=== PATIENT | female | born 1970 | race Caucasian/White ===

== ENCOUNTER 2020-05-02 12:13 | Outpatient (REF) | payer BC, SELFPAY ==
[2020-05-02 12:35] LABS: MANUAL DIFF FLAG NO
[2020-05-02 12:38] LABS: Basophils Percent Auto 0.5 % (0-2); Eosinophils Percent Auto 0.7 % (0-4); Hematocrit 41.5 % (37-47); Hemoglobin 13.6 g/dl (12.0-16.0); Imm Gran Abs Auto 0.01 X10*3/uL (0.00-0.03); Imm Gran Pct Auto 0.2 % (0.0-0.4); Lymphocytes Absolute Auto 1.7 X10*3/uL (1.2-4.9); Mean Corpuscular HGB Conc 32.8 g/dl (31.0-35.0); Mean Corpuscular Hemoglobin 29.6 pg (27.0-33.0); Mean Corpuscular Volume 90.2 fL (80-98); Monocytes Absolute Auto 0.4 X10*3/uL (0.1-1.2); Monocytes Percent Auto 6.6 % (2-11); Neutrophils Absolute Auto 3.8 X10*3/uL (2.0-8.3); Platelet Count 210 X10*3/uL (160-400); Red Cell Distribution Width 12.1 % (11.0-16.0); White Blood Count 5.9 X10*3/uL (4.8-10.8)
[2020-05-02 13:08] LABS: Anion Gap 10 (12-20); Blood Urea Nitrogen 12 mg/dL (9-16); Calcium 9.4 mg/dL (8.4-10.2); Carbon Dioxide 32 mmol/L (22-29); Chloride 105 mmol/L (96-108); Estimated Glomerular Filt Rate > 60; Glucose Random 89 mg/dL (60-115); Potassium 4.9 mmol/l (3.3-5.1); Sodium 142 mmol/L (135-145)
[2020-05-02 13:30] LABS: Thyroid Stimulating Hormone 1.02 uIU/mL (0.32-4.0)
== END 2020-05-02 12:14 | disposition home or self-care (01) ==
LOC: HO.LAB 12:13
PROVIDERS: Visit Provider Internal Medicine
DX: E03.9 Hypothyroidism, unspecified (principal); R51.9 Headache, unspecified; Z00.00 Encounter for general adult medical examination without abnormal findings
CPT/HCPCS: 36415; 80048; 84443; 85025

== ENCOUNTER 2020-06-04 06:26 | Outpatient (REF) | payer BC, SELFPAY ==
[2020-06-04 07:06] LABS: MANUAL DIFF FLAG NO
[2020-06-04 07:10] LABS: Basophils Percent Auto 0.5 % (0-2); Eosinophils Absolute Auto 0.1 X10*3/uL (0.0-0.4); Eosinophils Percent Auto 0.9 % (0-4); Hematocrit 42.5 % (37-47); Hemoglobin 13.9 g/dl (12.0-16.0); Imm Gran Abs Auto 0.02 X10*3/uL (0.00-0.03); Imm Gran Pct Auto 0.3 % (0.0-0.4); Lymphocytes Absolute Auto 1.5 X10*3/uL (1.2-4.9); Lymphocytes Percent Auto 20.5 % (20-40); Mean Corpuscular HGB Conc 32.7 g/dl (31.0-35.0); Mean Corpuscular Hemoglobin 30.2 pg (27.0-33.0); Mean Corpuscular Volume 92.2 fL (80-98); Mean Platelet Volume 8.8 fL (9.4-12.3); Monocytes Absolute Auto 0.5 X10*3/uL (0.1-1.2); Monocytes Percent Auto 6.5 % (2-11); Neutrophils Absolute Auto 5.3 X10*3/uL (2.0-8.3); Neutrophils Percent Auto 71.3 % (45-73); Platelet Count 254 X10*3/uL (160-400); Red Blood Count 4.61 X10*6/uL (4.20-5.50); Red Cell Distribution Width 12.6 % (11.0-16.0); White Blood Count 7.4 X10*3/uL (4.8-10.8)
[2020-06-04 07:27] LABS: Alanine Aminotransferase 14 U/L (0-31); Albumin Level 4.3 g/dL (3.5-5.0); Alkaline Phosphatase 58 U/L (39-117); Anion Gap 10 (12-20); Aspartate Amino Transferase 16 U/L (5-31); Bilirubin Total 0.5 mg/dL (0.0-1.0); Blood Urea Nitrogen 13 mg/dL (9-16); Calcium 9.1 mg/dL (8.4-10.2); Carbon Dioxide 32 mmol/L (22-29); Chloride 105 mmol/L (96-108); Cholesterol 206 mg/dL; Estimated Glomerular Filt Rate > 60; Glucose Fasting 84 mg/dL (60-99); HDL Cholesterol 67 mg/dL; LDL Cholesterol Calculated 121 mg/dl; Potassium 4.3 mmol/l (3.3-5.1); Sodium 143 mmol/L (135-145); Total Protein 7.1 g/dL (6.5-8.0); Triglycerides 93 mg/dL
[2020-06-04 07:49] LABS: Thyroid Stimulating Hormone 1.07 uIU/mL (0.32-4.0)
== END 2020-06-04 06:27 | disposition home or self-care (01) ==
LOC: HO.LAB 06:26
PROVIDERS: PCP Internal Medicine; Visit Provider Internal Medicine
DX: Z00.00 Encounter for general adult medical examination without abnormal findings (principal); E11.9 Type 2 diabetes mellitus without complications; E03.9 Hypothyroidism, unspecified
CPT/HCPCS: 36415; 80053; 80061; 84443; 85025

== ENCOUNTER 2020-06-20 16:00 | Outpatient (REF) | payer BC, SELFPAY ==
[2020-06-20 17:08] LABS: Thyroid Stimulating Hormone 1.57 uIU/mL (0.32-4.0)
[2020-06-20 18:00] LABS: Erythrocyte Sedimentation Rate 2 MM/HR (0-20)
[2020-06-21 04:07] LABS: Triiodothyronine T3 Free 2.8 pg/mL (2.3-4.2)
== END 2020-06-20 16:01 | disposition home or self-care (01) ==
LOC: HO.LAB 16:00
PROVIDERS: PCP Internal Medicine; Visit Provider Internal Medicine
DX: E03.9 Hypothyroidism, unspecified (principal); R63.4 Abnormal weight loss; R10.9 Unspecified abdominal pain
CPT/HCPCS: 36415; 84439; 84443; 84481; 85652

== ENCOUNTER 2020-07-09 14:42 | Outpatient (REF) | payer BC, SELFPAY ==
--- NOTE | ~2020-07-09 | US_ITS ---
EXAMINATION: ULTRASOUND PELVIS COMPLETE CLINICAL INFORMATION: Pelvic and perineal pain. COMPARISON: Ultrasound pelvis 07/02/2018. TECHNIQUE: Transabdominal and transvaginal ultrasound of the pelvis is performed. FINDINGS: The uterus is anteverted measuring 10.7 cm in length, 3.9 cm in AP and 6.1 cm in transverse dimension. Endometrial thickness is 1.2 cm. The uterus is heterogeneous with trace free fluid in the cervical canal. There is a small echogenic polyp measuring 1.2 x 0.7 x 1.2 cm in the fundal endometrial canal with a few vessels visualized. The right ovary measures 3.1 x 1.1 x 2.4 cm and volume 4.3 mL. Small anechoic follicles seen. There is a hyperechoic avascular area measuring 0.4 x 0.7 x 0.3 cm. The left ovary measures 2.0 x 1.6 x 1.8 cm and volume 3.0 mL. There are small anechoic follicles. Previously left ovary measured 1.5 x 1.7 x 2.0 cm and volume 2.7 mL. There is no free fluid in the cul-de-sac. Increased vascularity seen in bilateral adnexa suspicious for pelvic venous congestion. US/US pelvic complete IMPRESSION: Small fundal endometrial polyp with vessels. Heterogenous uterus. Small amount of free fluid in the cervical canal. Bilateral ovarian follicles seen. Small hyperechoic avascular area seen in the right ovary. Bilateral pelvic venous congestion.
--- NOTE | ~2020-07-09 | US_ITS ---
EXAMINATION: ULTRASOUND PELVIS COMPLETE CLINICAL INFORMATION: Pelvic and perineal pain. COMPARISON: Ultrasound pelvis 07/02/2018. TECHNIQUE: Transabdominal and transvaginal ultrasound of the pelvis is performed. FINDINGS: The uterus is anteverted measuring 10.7 cm in length, 3.9 cm in AP and 6.1 cm in transverse dimension. Endometrial thickness is 1.2 cm. The uterus is heterogeneous with trace free fluid in the cervical canal. There is a small echogenic polyp measuring 1.2 x 0.7 x 1.2 cm in the fundal endometrial canal with a few vessels visualized. The right ovary measures 3.1 x 1.1 x 2.4 cm and volume 4.3 mL. Small anechoic follicles seen. There is a hyperechoic avascular area measuring 0.4 x 0.7 x 0.3 cm. The left ovary measures 2.0 x 1.6 x 1.8 cm and volume 3.0 mL. There are small anechoic follicles. Previously left ovary measured 1.5 x 1.7 x 2.0 cm and volume 2.7 mL. There is no free fluid in the cul-de-sac. Increased vascularity seen in bilateral adnexa suspicious for pelvic venous congestion. US/US transvaginal IMPRESSION: Small fundal endometrial polyp with vessels. Heterogenous uterus. Small amount of free fluid in the cervical canal. Bilateral ovarian follicles seen. Small hyperechoic avascular area seen in the right ovary. Bilateral pelvic venous congestion.
== END 2020-07-09 14:43 | disposition home or self-care (01) ==
LOC: HO.US 14:42
PROVIDERS: PCP Internal Medicine; Visit Provider Internal Medicine
DX: R10.2 Pelvic and perineal pain (principal)
CPT/HCPCS: 76830; 76856

== ENCOUNTER 2020-07-12 16:21 | Outpatient (REF) | payer BC, SELFPAY ==
--- NOTE | ~2020-07-12 | US_ITS ---
EXAMINATION: US ABDOMEN COMPLETE CLINICAL INFORMATION: Unspecified abdominal pain. COMPARISON: CT abdomen and pelvis with contrast dated 06/22/2018. TECHNIQUE: Real-time imaging of the abdominal viscera. FINDINGS: PANCREAS: Normal. ABDOMINAL AORTA: The proximal, mid, and distal segments are normal in caliber. INFERIOR VENA CAVA: Visualized portions are normal. LIVER: Normal. The liver is normal in size. The liver contour is normal. Parenchymal echogenicity is normal. No focal hepatic lesion. There is no intrahepatic biliary duct dilatation seen. GALLBLADDER: Normal. The gallbladder is physiologically distended without evidence of stones, sludge, polyps, or pericholecystic fluid. COMMON BILE DUCT: Normal in caliber measuring 0.23 cm in diameter. RIGHT KIDNEY: There is a small 7 x 5 x 5 mm hyperechoic lesion in the upper pole of the right kidney. This is similar to previous CT scan June 2018 and suggestive of a benign angiomyolipoma. No hydronephrosis. No renal calculi . The kidney measures 10.8 cm in maximum dimension. LEFT KIDNEY: Normal. No hydronephrosis. No renal calculi or focal parenchymal lesions. The kidney measures 9.9 cm in maximum dimension. SPLEEN: Normal. The spleen measures 7.9 cm in maximum dimension. FREE FLUID: None. 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 This is unchanged from previous CT scan June 2018. Otherwise unremarkable exam.
== END 2020-07-12 16:22 | disposition home or self-care (01) ==
LOC: HO.US 16:21
PROVIDERS: PCP Internal Medicine; Visit Provider Internal Medicine
DX: R10.9 Unspecified abdominal pain (principal)
CPT/HCPCS: 76700

== ENCOUNTER 2021-02-06 15:23 | Outpatient (REF) | payer BC, SELFPAY ==
[2021-02-06 17:04] LABS: C Reactive Protein 0.08 mg/dL (< or = 0.50)
[2021-02-12 11:36] LABS: Transglutaminase Ab IgG <1.0 U/mL; Transglutaminase IgA <1.0 U/mL
== END 2021-02-06 15:24 | disposition home or self-care (01) ==
LOC: HO.LAB 15:23
PROVIDERS: PCP Internal Medicine; Referring Provider Internal Medicine; Visit Provider Nurse Practitioner Family
DX: R13.10 Dysphagia, unspecified (principal); K59.01 Slow transit constipation; K58.1 Irritable bowel syndrome with constipation
CPT/HCPCS: 36415; 83516; 86140

== ENCOUNTER 2021-03-18 08:25 | Outpatient (REF) | payer BC, SELFPAY ==
--- NOTE | ~2021-03-18 | FL_ITS ---
EXAMINATION: FL BARIUM SWALLOW CLINICAL INFORMATION: Dysphagia. COMPARISON: None TECHNIQUE: Barium swallow examination is performed using fluoroscopic evaluation in addition to multiple fluoroscopic spot views. The patient is imaged both upright and prone and using both thick and thin sulfate along with effervescent granules. Barium tablet was also administered. Fluoroscopy time: 1 minutes DAP: 1.3 Gycm2 Images: 41 FINDINGS: There is mild penetration seen in the larynx with the patient swallows. No aspiration is seen. Swallowing mechanism otherwise appears normal. Esophageal motility is normal. There is severe gastroesophageal reflux. No muscle irregularity, mass, stricture or hernia is seen. The barium tablet passed freely into the stomach. On later series 3 images there is a nodular density projecting over the left upper lobe. This overlies the left first rib costochondral cartilage and scapula and may be related to overlapping bony structures. Follow-up chest x-ray recommended. FL/FL barium swallow IMPRESSION: Severe gastroesophageal reflux. Mild penetration into the larynx with the patient swallows. No aspiration seen. Nodular density projecting over the left upper lobe. This may represent overlapping left first rib costochondral cartilage and scapula. Follow-up chest x-ray recommended.
== END 2021-03-18 08:26 | disposition home or self-care (01) ==
LOC: HO.XRAY 08:25
PROVIDERS: Visit Provider Nurse Practitioner Family
DX: R13.10 Dysphagia, unspecified (principal)
CPT/HCPCS: 74220

== ENCOUNTER 2021-03-23 10:16 | Outpatient (REF) | payer BC, SELFPAY | END 2021-03-23 10:17 | disposition home or self-care (01) | LOC: HO.LNP 10:16 | PROVIDERS: Visit Provider Nurse Practitioner Family | DX: K21.9 Gastro-esophageal reflux disease without esophagitis (principal) | CPT/HCPCS: 87338 ==

== ENCOUNTER 2021-03-25 14:56 | Outpatient (REF) | payer BC, SELFPAY ==
--- NOTE | ~2021-03-25 | XR_ITS ---
EXAMINATION: XR RIBS, LEFT CLINICAL INFORMATION: Patient states left pulmonary nodule. COMPARISON: Chest radiograph dated from 10/28/2016. TECHNIQUE: 3 views of the left ribs were obtained. FINDINGS: Normal appearance of the cardiomediastinal silhouette. There is an asymmetric opacity in the left upper lobe measuring up to 1.2 cm. Otherwise, lungs are clear. No pleural effusion or pneumothorax. No acute osseous abnormalities. Indeterminate calcifications in the left upper abdomen. XR/XR ribs LT min 3V w CXR1V IMPRESSION: Asymmetric opacity in the left apex could represent shadowing from overlying costochondral cartilage. Although, he nodularity is difficult to exclude. Recommend correlation with a chest CT. Indeterminate calcifications in the left upper abdomen. Clear lungs. No acute osseous findings.
--- NOTE | ~2021-03-25 | FL_ITS ---
EXAMINATION: XR BARIUM SWALLOW CLINICAL INFORMATION: Dysphagia COMPARISON: None TECHNIQUE: Routine modified barium swallow was performed in presence of speech therapist. FINDINGS: Following oral administration of thin barium, pudding, ground chicken and barium coated cookie there is normal oral mastication and propagation of bolus from the oral cavity through the pharynx into the esophagus without any evidence of obstruction, narrowing or stricture. There is minimal retention of barium coated food in the valleculae which cleared with subsequent dry swallowing. FLUOROSCOPY TIME: 1.0 minute DOSE AREA PRODUCT: 0.650 uGy-m2 (microgray-meter squared) FL/FL barium swallow modified IMPRESSION: 1. Unremarkable modified barium swallow exam. 2. Correlate with speech therapy results.
--- NOTE | 2021-03-27 16:48 | MHC.SL.IMP ---
Date of Plan of Treatment: 03/25/21 Onset of Symptoms/Illness: 03/25/20 Date Treatment Started: 03/25/21 Admitting Diagnosis: Migraine Varicose veins C-sections von Willebrand's disease, type 1A Hematuria Constipation Primary Speech & Language Diagnosis: R13.12 Oropharyngeal Phase Dysphagia Reason for Today's Visit: 57724 Modified Barium Swallow Study Pre-evaluation Dietary Consistencies: Regular Pre-evaluation Liquid Consistency: Thin Pre-evaluation Medication Administration: Whole with Liquid Medical History: [place], [place] Modified Barium Swallow Study Fluoroscopic Evaluation of Swallowing Function CPT Code 28010 Evaluation Year: 2020 Reason for Study: Evidence of penetration with barium swallow study 03/18/21 Referring Physician: Porsha NASH Evaluating Clinician: Ginny Naranjo M.A., CCC-ASSISTANT CUSTOMER SERVICE MANAGER Study Number: 1 Patient Name: Gina Garcia Status: Outpatient, Ambulatory Age: 51 Gender: Female MEDICAL HISTORY: Year of Onset or Diagnosis: 2020 Comorbidities: Migraine Varicose veins C-sections von Willebrand's disease, type 1A Hematuria Constipation Current (pre-evaluation) Intake/Diet: Route: PO Diet Grade: Regular Liquid Consistencies: Thin Pre-Study Functional Oral Intake Scale (FOIS): 7- Total oral intake with no restrictions Pain: Currently present reported at time of study, Throat, rated 4 on scale 0-10 SUBJECTIVE: Patient is a 51 year old woman who attended this exam unaccompanied. Patient was seen by Porsha NASH from Gastroenterology on 01/31/21. At that time, patient reported trouble swallowing. She described food feeling ?stuck and will not go down,? and ?throat closing in.? Today, patient elaborated on these complaints. She reports globus sensation with all types of foods, and sometimes even liquids. She reports throat pain at the time of the exam, which she rated 3 or 4 on a scale 0 through 10. She reports her pain as intermittent. Patient reports onset of dysphagia approximately 1 year ago, and it has progressively worsened. Patient reportedly had a mass removed in her uterus and then a mass was found in her kidney. Patient had recent barium swallow study on 03/18/21, which showed, ?Severe gastroesophageal reflux. Mild penetration into the larynx [when] the patient swallows. No aspiration seen. Nodular density projecting over the left upper lobe. This may represent overlapping left first rib costochondral cartilage and scapula. Follow up chest x-ray recommended.? Oral Motor Exam Facial Symmetry: Symmetrical Mouth Occlusion: Normal Oral-Facial Teeth Characteristics: Intact/Normal Oral-Facial Lip Pucker Description: Normal Oral-Facial Smile (Lips) Description: Normal Oral-Facial Puff Cheeks Description: Normal Tongue Size: Normal Tongue Frenum Length: Normal Tongue Excursion Description: Normal Tongue Range of Movement Description: Normal Tongue Speed of Movement Description: Normal Tongue Strength of Movement (against opposing pressure): Normal Tongue Movement Characteristics: Normal/Absent Is patient able to manage secretions?: Yes Is patient able to produce volitional cough?: Yes Food and Liquid Trials: Oral Impairment: Lip Closure: 0=No labial escape Oral Impairment: Tongue Control During Bolus Hold: 0=Cohesive bolus between tongue to palatal seal Oral Impairment: Bolus Preparation/Mastication: 0=Timely and efficient chewing and mashing Oral Impairment: Bolus Transport/Lingual Motion: 2=Slowed tongue motion Oral Impairment: Oral Residue: 1=Trace residue lining oral structures Oral Impairment:Initiation of Pharyngeal Swallow: 3=Bolus head in pyriforms Pharyngeal Impairment: Soft Palate Elevation: 0=No bolus between soft palate (SP)/pharyngeal wall (PW) Pharyngeal Impairment: Laryngeal Elevation: 1=Partial thyroid cartilage/arytenoids to epiglottic petiole movement Pharyngeal Impairment: Anterior Hyoid Excursion: 0=Complete anterior movement Pharyngeal Impairment: Epiglottic Movement: 1=Partial inversion Pharyngeal Impairment: Laryngeal Vestibular Closure:: 1=Incomplete: narrow column air/contrast in laryngeal vestibule Pharyngeal Impairment: Pharyngeal Stripping Wave: 0=Present: complete Pharyngeal Impairment: Pharyngeal Contraction: Did not test Pharyngeal Impairment: Pharyngoesophageal Segment Openin=Complete distension and complete duration: no obstruction of flow Pharyngeal Impairment: Tongue Base (TB) Retraction: 2=Narrow column of contrast/air between TB and posterior PW Pharyngeal Impairment: Pharyngeal Residue: 1=Trace residue within or on pharyngeal structures Pharyngeal Impairment: Esophageal Clearance Upright Position: Did not test Impressions and Recommendations Clinical Observations: OBJECTIVE: Time-out: performed at 03:15 Evaluation Start: 03:00; Stop: 03:05 Patient Positioning: Seated 70-90 degrees Viewing Planes: LATERAL ONLY Contrast: MBSImP? Standardized Protocol using commercially prepared, standardized Barium viscosities, including: Varibar? THIN LIQUID (40% w/v, <15 cps) , Varibar? NECTAR (40% w/v, <150-450 cps) , Varibar? THIN HONEY (40% w/v, <800-1800 cps) , 1/2 Shortbread Cookie (1 x1 x.25 ) [facility] ID: [id number] [facility] Results: Lip closure for intraoral bolus containment resulted in no labial escape. Tongue control during bolus hold maintained a cohesive bolus held between tongue to palate seal. Bolus preparation and mastication resulted in timely and efficient chewing and mashing. Bolus transport/lingual motion was with slowed tongue motion. Oral residue was a trace, lining oral structures. Initiation of the pharyngeal swallow occurred when the bolus head was in the pyriform sinuses. Soft palate elevation resulted in no bolus between the soft palate and the pharyngeal wall. Laryngeal elevation was decreased, with partial superior movement of the thyroid cartilage/partial approximation of the arytenoids to the epiglottic petiole. Anterior hyoid excursion demonstrated complete anterior movement. Epiglottic movement resulted in partial inversion. Laryngeal vestibular closure was incomplete, with a narrow column of air/contrast noted within the laryngeal vestibule at the height of the swallow. Pharyngeal stripping wave was present and complete. Pharyngeal contraction could not be determined due to logistical reasons not related to physiologic impairment. Pharyngoesophageal segment opening was completely distended for complete duration with no obstruction of bolus flow. Tongue base retraction allowed a narrow column of contrast or air between the retracted tongue base and the posterior pharyngeal wall. Pharyngeal residue was a trace within or on pharyngeal structures. Esophageal clearance in the upright position could not be assessed due to logistical reasons not related to physiologic impairment. Oral Impairment Score: 5 Pharyngeal Impairment Score: 5 (absence of score, component 13) Esophageal Impairment Score: --- (absence of score, component 17) Laryngeal Penetration and Aspiration: Penetration was observed in today's study. [place]-thick, Thin Contrast entered the airway, remained above the vocal folds, and were ejected from the airway. ASSESSMENT: This exam was conducted by a multidisciplinary team, which included a speech-language pathologist, radiologist, and reactor technician. Patient was seated at optimal 90 degree position for lateral view only. Patient trialed the following liquid and solid consistencies: -5 mL thin liquid barium -cup sip with bolus hold thin liquid barium -consecutive cup sip thin liquid barium -nectar thick liquid barium -honey thick liquid barium -pureed solid (mixture applesauce with barium paste) -ground solid (mixture chicken salad with barium paste) -regular solid (Madonna Doone cookie coated with barium paste) Patient demonstrated mild oropharyngeal phase dysphagia, characterized by impairments in the following components of swallow physiology: Slowed posterior tongue movement; delayed pharyngeal swallow trigger when bolus head reached pyriform sinuses; incomplete laryngeal elevation with partial epiglottic inversion; incomplete laryngeal vestibular closure resulting in penetration of liquids. Intact labial closure with no interlabial escape. Patient presented with good bolus control and efficient, timely mastication. Mildly slowed AP transport of bolus followed by delayed pharyngeal swallow trigger. Good oral clearance. Incomplete laryngeal elevation with incomplete epiglottic inversion and incomplete laryngeal vestibular closure. No aspiration or penetration seen with honey thick liquid by teaspoon. No aspiration or penetration with pureed solids, ground solids, and regular solids. Evidence of flash penetration with thin liquid and nectar thick liquid. Trace amount of liquid momentarily entered the airway during the swallow and remained above the vocal folds. Material immediately and spontaneously ejected from airway. Good oral and pharyngeal clearance with both solids and liquids. No obstruction of flow through pharyngoesophageal segment opening. Liquid Intake Recommendation: Thin Liquid Intake Strategies: Small Sips No Straws Dietary Recommendations: Regular Medication Administration: Whole with Liquid Compensatory Strategies Recommended: Sitting Upright (90 deg) No Straw Small Bites and Sips Rate of Ingestion Change Supervision during eating and or drinking: None Needed Recommendation for Speech Therapy: NA:Typical Evaluation PLAN: Intake Recommendations: Route: PO Diet Grade: Regular Liquid Consistencies: Thin Post-Study Functional Oral Intake Scale (FOIS): 7- Total oral intake with no restrictions ST intervention is not indicated at this time. Recommend patient to resume unmodified diet textures REGULAR solids and THIN liquids with aspiration precautions: -small sips of liquid -individual sips, no consecutive sips or ?chugging? of liquids -avoid use of straws -upright 90 degree position when eating/drinking -small bites of food, chew food well -monitor for any overt s/s of aspiration. Suggested Referrals: The patient might benefit from a referral to: Gastroenterology Indication for Referral: d/t evidence of severe GERD on barium swallow study 11/8/21 Therapy Recommendations: Therapy will be discontinued Prognosis for Improvement: The prognosis for the patient to meet nutritional needs by mouth is good based on degree of impairment. Clinician - Supplemental, Miscellaneous Communication: It is important to note MBSS objective studies are snapshots in time and Patient function might vary with factors such as time of day or concomitant medical conditions. For this reason, the final treatment plan for this patient should rest with their medical care team. Additional recommendations should be considered with the totality of the Patient in mind.? Thank for the opportunity to participate in the care of this patient. If you have any questions about the content of this report, please contact the [facility] at [facility].? Education: Education regarding findings from today's study and plans for therapy were provided to Patient only through Verbal Instruction. Understanding was expressed by the Patient only. Shovel Handle Assembler Clinician/Clinical Fellow: No Supervisory Statement: N/A Speech Language Pathologist: Ginny Naranjo M.A., CCC-ASSISTANT CUSTOMER SERVICE MANAGER
== END 2021-03-25 14:57 | disposition home or self-care (01) ==
LOC: HO.XRAY 14:56
PROVIDERS: Visit Provider Nurse Practitioner Family
DX: R13.10 Dysphagia, unspecified (principal)
CPT/HCPCS: 71101; 74230; 92611

== ENCOUNTER → 2021-04-15 14:53 | Outpatient (BNVA) | payer BC, SELFPAY | PROVIDERS: PCP Internal Medicine; Referring Provider Internal Medicine; Visit Provider Nurse Practitioner Family ==

== ENCOUNTER 2021-04-17 15:09 | Outpatient (REF) | payer BC, SELFPAY ==
--- NOTE | ~2021-04-17 | CT_ITS ---
EXAMINATION: CT CHEST WITHOUT CONTRAST CLINICAL INFORMATION: Follow-up abnormal chest and left rib x-ray. Question abnormal density at the left lung apex. COMPARISON: Previous chest and left rib x-ray March 2021 TECHNIQUE: Multidetector volumetric CT imaging of the chest was done. Axial MIP volume rendering provided. Sagittal and coronal reformatted images were obtained. This CT examination was performed using dose optimization techniques as appropriate, variously including the following: *Automated exposure control *Adjustment of mA and/or kV according to patient size (this includes techniques or standardized protocols for targeted exams where dose is matched to indication/reason for exam; i.e. extremities or head) *Use of iterative reconstruction technique DLP: 98 mGy-cm FINDINGS: PHYSICAL THERAPY TECHNICIAN: Unremarkable LUNGS: There is mild biapical pleural and parenchymal scarring. The lungs are otherwise clear. Previously identified nodular density at the left lung apex is likely related to left first rib costochondral cartilage. MEDIASTINUM: The mediastinum is normal. PLEURA: There is no pleural effusion. No pleural mass or thickening. AXILLA: No lymphadenopathy. UPPER ABDOMEN: Unremarkable. Questioned calcifications in the left upper quadrant are no longer seen. OSSEOUS STRUCTURES: There are mild degenerative changes of the spine. CT/CT chest wo con IMPRESSION: No pulmonary nodule seen. Fleischner guidelines were followed.
== END 2021-04-17 15:10 | disposition home or self-care (01) ==
LOC: HO.CT 15:09
PROVIDERS: Visit Provider Internal Medicine
DX: R93.89 Abnormal findings on diagnostic imaging of other specified body structures (principal)
CPT/HCPCS: 71250

== ENCOUNTER 2021-05-27 08:07 | Day surgery (SDC) | payer BC, SELFPAY ==
[2021-05-21 09:16] VITALS: BMI 19.4
--- NOTE | 2021-05-27 07:54 | HO.ANESPROP2 ---
[facility] Active Problems Active Problems: All Active Problems (Updated 04/15/21 @ 20:19 by Porsha Garcia [facility]) Anxiety about health (Acute) Toe pain (Acute) Pain in pelvis (Acute) Abdominal pain (Acute) Weight loss (Acute) Thyroid disease (Acute) Past Medical History Medical History (Updated 05/27/21 @ 08:27 by Yolanda Escobar RN) Brain lesion Mass of right kidney Mass of uterus Toe pain Functional capacity: independent ambulation Patient : No Family History Family History Father No problems noted. Mother No problems noted. Family history of problems with anesthesia: No Surgical History Surgical History (Updated 05/27/21 @ 08:27 by Yolanda Escobar RN) History of bunionectomy of right great toe History of delivery Hx of colonoscopy Hx of toe surgery Hx of tubal ligation History of Problems with Anesthesia: No Social History Social History Housing: House Alcohol intake: current Alcohol intake frequency: holidays/special occasions only Patient Tobacco Use Status: Never used Tobacco Second Hand Smoke Exposure: No Use of substances other than those prescribed or required for medical reasons: No Are you DNR?: Yes Advance Directives: No Advance Directives Information Provided: Yes Patient : No service: No Current occupational status: employed Meds Allergies Allergy/AdvReac Type Severity Reaction Status Date / Time kiwi Allergy Severe rash Verified 04/15/21 15:08 Penicillins [PENICILLINS] Allergy Intermediate SEVERE RASH Verified 04/15/21 15:08 Sulfa (Sulfonamide Allergy Intermediate RASH Verified 04/15/21 15:08 Antibiotics) [SULFA(SULFONAMIDE ANTIBIOTICS)] Home Medications Medication Instructions Recorded Confirmed Last Taken Type acetaminophen 325 mg tablet 325 mg PO Q4-6H PRN tab 06/20/20 01/03/21 Unknown History (Tylenol) cholecalciferol (vitamin D3) 50 50 mcg PO DAILY 06/20/20 01/03/21 Unknown History mcg (2,000 unit) capsule ferrous sulfate 325 mg (65 mg 325 mg PO DAILY 06/20/20 01/03/21 Unknown History iron) tablet (Feosol) mecobalamin (vitamin B12) 1,000 1,000 mcg SUBLINGUAL DAILY 06/20/20 01/03/21 Unknown History mcg disintegrating tablet,sublingual Exam Exam Date and Time: May 27, 2021 0754 Height,Weight and Vital Signs: Height 5 ft 8 in Weight 58.06 kg Airway Mallampati Class: I TM Dist: >3cm Neck ROM: Full Heart: RRR Lungs: CTA Assessment and Plan Final Anesthetic Review Family History of Problems with Anesthesia: No History of Problems with Anesthesia: No ASA Class: II Final Preanesthetic Review: No Changes in Pt Med Stat, Meds/Allgs Chart Reviewed, Consent Obtained/Reviewed and Anes Risks/Benef Reviewed Patient Risk: Low Procedure Risk: Low Anesthetic Plan Anesthetic Plan: MAC: Disposition: Standard PACU
--- NOTE | 2021-05-27 08:15 | MHC.SHP ---
Pre-Procedural Eval Section A Date of Service: 05/27/21 The patient is an INPATIENT: No The History & Physical has been completed within 30 days and I have reviewed it.: No Section B Chief Complaint: epigastric pain,dysphagia oropharyngeal phase Relevant Family History (Specify if Yes): Yes Relevant Social History: None Present Medications: see Short Stay Collaborative assessment Medical History: Significant History (Mass of uterus, Toe pain) History of Previous Operations: Relevant previous surgery/procedure and date(s) (History of delivery Hx of colonoscopy) Allergies: Allergies Allergy/AdvReac Type Severity Reaction Status Date / Time kiwi Allergy Severe rash Verified 04/15/21 15:08 Penicillins [PENICILLINS] Allergy Intermediate SEVERE RASH Verified 04/15/21 15:08 Sulfa (Sulfonamide Allergy Intermediate RASH Verified 04/15/21 15:08 Antibiotics) [SULFA(SULFONAMIDE ANTIBIOTICS)] Review of Systems Sugical H&P ROS: Negative: Constitution, Cardiovascular and Respiratory and Yes, Specify: Gastrointestinal (constipation, dysphagia) Exam Surgical H&P Exam: Normal: Heart, Normal: Lungs, Normal: Extremities and Normal: Abdomen Plan Diagnosis/Plan: Unchanged I have reviewed the history and physical and performed a pertinent physical examination on my patient. No changes have occurred unless specified.
[2021-05-27 08:16] VITALS: BP 120/77; PULSE 100; RESP 18; TEMP 36.5; O2SAT 99
--- NOTE | 2021-05-27 08:16 | PM.OP ---
Brief Operative Note Date of Service: 05/27/21 Pre-op diagnosis: Colon cancer screening, dysphagia, abdominal pain, chronic constipation Post-op diagnosis: other (GERD, dysphagia, Gastritis) Procedure: FLEXIBLE TRANSORAL UPPER GASTROINTESTINAL ENDOSCOPY WITH BIOPSIES AND ESOPHAGEAL BALLOON DILATION AND COLONOSCOPY TILL CECUM WITH BIOPSIES UPPER ENDOSCOPY Consent: Indications for the procedure and potential complications of bleeding, perforation, reaction to medications and missed diagnosis were discussed with the patient and informed consent was obtained. Instrument: Olympus GIF H 190 mid size upper endoscope Monitoring: Vital signs and clinical assessment, continuous EKG monitoring, Pulse oximetry, Carbon Dioxide monitoring and blood pressure monitoring were done throughout the procedure. Procedure: The patient was placed in the left lateral decubitis position and pre-procedure medications were administered and a bite block was placed. The endoscope was inserted into the mouth and advanced under direct vision to the third part of duodenum. A careful inspection was made as the upper endoscope was withdrawn including a retroflexed examination of the proximal stomach; Findings and interventions are described below. Findings: Larynx: Normal Esophagus: Tortuous esophagus with increased tertiary contractions without stricture or ring - biopsies obtained from proximal esophagus to check for EOE. Empiric balloon dilation of UES sphincter was performd with a 15 mm (45F) CRE balloon x 60 seconds. GE junction at 40 cms.. No esophagitis or Jade's. Stomach: Mild gastric erythema. Biopsies were obtained. Grade 2 flap valve on retroflexed examination of the cardia. Duodenum: Normal bulb and descending duodenum. Biopsies obtained from 3rd part of duodenum to check for celiac sprue. Intervention: Biopsies and esophageal balloon dilation as noted above COLONOSCOPY PROCEDURE NOTE Consent: Indications for the procedure and potential complications of bleeding, perforation, reaction to medications and missed diagnosis were discussed with the patient and informed consent was obtained. Instrument: Olympus PCF H 190 L variable stiffness pediatric colonoscope Monitoring: Vital signs and clinical assessment, intermittent blood pressure monitoring, continuous EKG monitoring, Pulse oximetry and Carbon Dioxide monitoring were done throughout the procedure. Colon withdrawl time was 16 minutes. Procedure: The patient was placed in the left lateral decubitis position and pre-procedure medications were administered. After a digital rectal examination of the ano-rectum, the video colonoscope was inserted into the rectum and advanced through the colon to the cecum. The colonoscope was slowly withdrawn in a retrograde panoramic fashion and the colon mucosa was carefully examined including a retroflexed view of the rectum. Findings and interventions are described below. Procedure Difficulty: Colon was long and tortuous and there was recurrent loop formation, no maneuvers were required Findings: Terminal Ileum: Not evaluated Cecum: Normal Ascending Colon: Normal Transverse Colon: Two 4-5 mm diminutive appearing polyps removed with a cold bx Descending Colon: Moderate diverticulosis Sigmoid Colon: Moderate diverticulosis Rectum: Normal Ano-rectum: Small internal hemorrhoids Colon preparation: Excellent Impression and Post Procedure Diagnosis: Endoscopy Findings: ESOPHAGUS: Tortuous esophagus with increased tertiary contractions without stricture or ring - biopsies obtained from proximal esophagus to check for EOE. Empiric balloon dilation of UES sphincter was performd with a 15 mm (45F) CRE balloon x 60 seconds. STOMACH: Mild gastritis DUODENUM: Normal - biopsied to check for celiac sprue. Colonoscopy Findings: Two diminutive appearing polyps removed Moderate diverticulosis seen in the left colon Small hemorrhoids on retroflexed exam. Plan: Await pathology results Patient has an appointment on 06/10/21 in the [facility] with Porsha Garcia FNP-BC. If patient has continuing dysphagia and esophageal biopsies are normal, consider further evaluation with esophageal manometry. Repeat Colonoscopy interval based on path results - in 5 years if polyps are adenomatous and due to family hx of colon cancer (Paternal Uncle in his 40's or 50 s). Adult colonoscope for future colonoscopies. Above findings were reviewed with the patient and GERD, colon polyps and diverticulosis handouts were given in the discharge area Surgeon: Jalil Colorado MD Anesthesia: MAC (Dr Hanna) Was an Woodwork Teacher used for this Procedure?: No Woodwork Teacher: Celestina Smith Estimated blood loss (mL): 0 Pathology: other ( A. small bowel bxs, R/O sprue B. gastric antrum bxs, R/O H. pylori C. proximal esophagus bxs, R/O EOE D. transverse colon polyps (2)) Condition: stable Disposition: PACU
--- NOTE | 2021-05-27 08:17 | P.OP_ITS ---
Operative Note Operative Note Date of Service: 05/27/21 Narrative: Pre-op diagnosis:?Colon cancer screening, dysphagia, abdominal pain, chronic constipation Post-op diagnosis:?other (GERD, dysphagia, Gastritis) Procedure:? FLEXIBLE TRANSORAL UPPER GASTROINTESTINAL ENDOSCOPY WITH BIOPSIES AND ESOPHAGEAL BALLOON DILATION AND COLONOSCOPY TILL CECUM WITH BIOPSIES UPPER ENDOSCOPY Consent:?Indications for the procedure and potential complications of bleeding, perforation, reaction to medications and missed diagnosis were discussed with the patient and informed consent was obtained. Instrument:?Olympus GIF H 190 mid size upper endoscope Monitoring: Vital signs and clinical assessment, continuous EKG monitoring, Pulse oximetry, Carbon Dioxide monitoring and blood pressure monitoring were done throughout the procedure. Procedure:?The patient was placed in the left lateral decubitis position and pre-procedure medications were administered and a bite block was placed. The endoscope was inserted into the mouth and advanced under direct vision to the third part of duodenum. A careful inspection was made as the upper endoscope was withdrawn including a retroflexed examination of the proximal stomach; Findings and interventions are described below. Findings: Larynx:? Normal Esophagus: Tortuous esophagus with increased tertiary contractions without stricture or ring - biopsies obtained from proximal esophagus to check for EOE. Empiric balloon dilation of UES sphincter was performd with a 15 mm (45F) CRE balloon x 60 seconds. GE junction at 40 cms.. No esophagitis or Jade's. Stomach:?Mild gastric erythema. Biopsies were obtained. Grade 2 flap valve on retroflexed examination of the cardia. Duodenum:?Normal bulb and descending duodenum.? Biopsies obtained from 3rd part of duodenum to check for celiac sprue. Intervention:?Biopsies and esophageal balloon dilation as noted above COLONOSCOPY PROCEDURE NOTE Consent:?Indications for the procedure and potential complications of bleeding, perforation, reaction to medications and missed diagnosis were discussed with the patient and informed consent was obtained. Instrument:?Olympus PCF H 190 L variable stiffness pediatric colonoscope Monitoring:?Vital signs and clinical assessment, intermittent blood pressure monitoring, continuous EKG monitoring, Pulse oximetry and Carbon Dioxide monitoring were done throughout the procedure. Colon withdrawl time was 16 minutes. Procedure:?The patient was placed in the left lateral decubitis position and pre-procedure medications were administered. After a digital rectal examination of the ano-rectum, the video colonoscope was inserted into the rectum and advanced through the colon to the cecum. The colonoscope was slowly withdrawn in a retrograde panoramic fashion and the colon mucosa was carefully examined including a retroflexed view of the rectum. Findings and interventions are described below. Procedure Difficulty:??Colon was long and tortuous and there was recurrent loop formation, no maneuvers were required Findings: Terminal Ileum: Not evaluated Cecum:? Normal Ascending Colon:??Normal Transverse Colon:??Two 4-5 mm diminutive appearing polyps removed with a cold bx Descending Colon:? Moderate diverticulosis Sigmoid Colon:??Moderate diverticulosis Rectum:??Normal Ano-rectum:??Small internal hemorrhoids Colon preparation: Excellent ? Impression and Post Procedure Diagnosis: Endoscopy Findings: ESOPHAGUS: Tortuous esophagus with increased tertiary contractions without stricture or ring - biopsies obtained from proximal esophagus to check for EOE. Empiric balloon dilation of UES sphincter was performd with a 15 mm (45F) CRE balloon x 60 seconds. STOMACH: Mild gastritis DUODENUM: Normal - biopsied to check for celiac sprue. Colonoscopy Findings: Two diminutive appearing polyps removed Moderate diverticulosis seen in the left colon Small hemorrhoids on retroflexed exam. Plan: Await pathology results Patient has an appointment on 06/10/21 in the GI Clinic with ? Porsha Garcia FNP-PIA. If patient has continuing dysphagia and esophageal biopsies are normal, consider further evaluation with esophageal manometry. Repeat Colonoscopy interval based on path results - in 5 years if polyps are adenomatous and due to family hx of colon cancer (Paternal Uncle in his 40's or 50 s).? Adult colonoscope for future colonoscopies. Above findings were reviewed with the patient and GERD, colon polyps and diverticulosis handouts were given in the discharge area Surgeon:?Jalil Colorado MD Anesthesia:?MAC (Dr Hanna) Was an Furnace Operator And Tender used for this Procedure?:?No Furnace Operator And Tender:?Celestina Smith Estimated blood loss (mL):?0 Pathology:?other ( A. small bowel bxs, R/O sprue? B. gastric antrum bxs, R/O H. pylori? C. proximal esophagus bxs, R/O EOE? D. transverse colon polyps (2)) Condition:?stable Disposition:?PACU
[2021-05-27 09:52] VITALS: BP 100/62; PULSE 79; RESP 16; TEMP 36.1; O2SAT 99
[2021-05-27 10:07] VITALS: BP 111/67; PULSE 73; RESP 16; O2SAT 99
[2021-05-27 10:22] VITALS: BP 123/76; PULSE 65; RESP 16; O2SAT 99
[2021-05-27 10:35] VITALS: TEMP 36.7
--- NOTE | 2021-05-27 13:12 | HO.POSTANES ---
Post Anesthesia Evaluation Post Anesthesia Evaluation Vital Signs: Vital Signs Temp Pulse Resp BP Pulse Ox 05/27/21 10:35 98.0 F 05/27/21 10:22 65 16 123/76 99 05/27/21 10:07 73 16 111/67 99 05/27/21 09:52 97.0 F 79 16 100/62 99 05/27/21 08:16 97.7 F 100 18 120/77 99 Anesthesia: Monitored Mental Status: Awake Pain Control: Satisfactory Nausea/Vomiting: None Hydration: Adequate Anesthesia-Related Issues: No Anes. Related Issues
== END 2021-05-27 11:10 | disposition home or self-care (01) ==
PROVIDERS: PCP Internal Medicine; Visit Provider Internal Medicine Gastroenterology
PROC: (CPT 45380; principal; 2021-05-27 09:20)
DX: Z12.11 Encounter for screening for malignant neoplasm of colon (principal); K63.5 Polyp of colon; K57.30 Diverticulosis of large intestine without perforation or abscess without bleeding; K64.8 Other hemorrhoids; K59.03 Drug induced constipation; K22.2 Esophageal obstruction; R13.12 Dysphagia, oropharyngeal phase; K29.50 Unspecified chronic gastritis without bleeding; Z79.899 Other long term (current) drug therapy; K21.9 Gastro-esophageal reflux disease without esophagitis; Z88.0 Allergy status to penicillin; Z88.2 Allergy status to sulfonamides
CPT/HCPCS: 45380; 43249; 43239; 88305; 88342; C1726

== ENCOUNTER 2021-06-10 14:36 | Outpatient (REF) | payer BC, SELFPAY ==
[2021-06-10 16:21] LABS: Blood Urea Nitrogen 7 mg/dL (9-16); Estimated Glomerular Filt Rate > 60
== END 2021-06-10 14:37 | disposition home or self-care (01) ==
LOC: HO.LAB 14:36
PROVIDERS: PCP Internal Medicine; Referring Provider Internal Medicine; Visit Provider Nurse Practitioner Family
DX: R10.11 Right upper quadrant pain (principal); R13.12 Dysphagia, oropharyngeal phase; K21.9 Gastro-esophageal reflux disease without esophagitis; K58.1 Irritable bowel syndrome with constipation; Z98.890 Other specified postprocedural states
CPT/HCPCS: 36415; 82565; 84520

== ENCOUNTER 2021-07-04 15:26 | Outpatient (REF) | payer BC, SELFPAY ==
--- NOTE | ~2021-07-04 | CT_ITS ---
CT SOFT TISSUE NECK WITH CONTRAST CLINICAL INFORMATION: Dysphagia. COMPARISON: None available. TECHNIQUE: Following the intravenous administration of 100 mL of Omnipaque 350 intravenous contrast, helical imaging was performed in the axial plane with generation of coronal and sagittal reformatted images. This CT examination was performed using dose optimization techniques as appropriate, variously including the following: *Automated exposure control *Adjustment of mA and/or kV according to patient size (this includes techniques or standardized protocols for targeted exams where dose is matched to indication/reason for exam; i.e. extremities or head) *Use of iterative reconstruction technique FINDINGS: There is no cervical lymphadenopathy. The parotid glands are homogeneous in attenuation. The submandibular glands are normal. The thyroid gland is normal. No contour abnormality or pathologic enhancement is seen within the oral cavity or pharyngeal mucosal space. No retropharyngeal fluid collection is seen. The laryngeal structures are normal. The parapharyngeal fat is preserved. The carotid sheath vasculature opacify normally. No extra mucosal soft tissue mass or fluid collection is seen. The superior mediastinum is unremarkable. The lung apices are clear. The mastoid air cells and visualized portions of the paranasal sinuses are well-aerated. There is multilevel cervical spondylosis. Rightward deviation of the bony cartilaginous nasal septal junction and leftward deviation of the posterior bony nasal septum. The imaged portions of the brain parenchyma are unremarkable. CT/CT soft tissue neck w con IMPRESSION: Unremarkable contrast-enhanced CT of the neck. No structural explanation for the patient's symptoms identified.
[2021-07-04] MEDS: iohexoL 350 MG/ML 100 ML INFUS..BTL IV (15:51)
== END 2021-07-04 15:27 | disposition home or self-care (01) ==
LOC: HO.CT 15:26
PROVIDERS: Visit Provider Nurse Practitioner Family
DX: R13.10 Dysphagia, unspecified (principal)
CPT/HCPCS: 70491; Q9967

== ENCOUNTER 2021-07-08 15:16 | Outpatient (REF) | payer BC, SELFPAY ==
--- NOTE | ~2021-07-08 | XR_ITS ---
EXAMINATION: XR CHEST CLINICAL INFORMATION: Chronic cough COMPARISON: CT chest 04/17/2021. Chest x-ray 10/28/2016 TECHNIQUE: 2 views of the chest were obtained. FINDINGS: No acute abnormality of chest. Lungs are clear. Stable 1 cm dense radiopacity over the left upper lobe on the frontal view correlates to a calcification at the costosternal cartilage of the left first rib is seen on CT chest 04/17/2021. No pulmonary vascular congestion. There is no pleural effusion. The heart size is normal. The cardiac and mediastinal contours are normal. There are multilevel degenerative changes of dorsal spine. XR/XR chest 2V IMPRESSION: Unremarkable examination.
== END 2021-07-08 15:17 | disposition home or self-care (01) ==
LOC: HO.XRAY 15:16
PROVIDERS: PCP Internal Medicine; Visit Provider Otolaryngology
DX: R05.8 Other specified cough (principal)
CPT/HCPCS: 71046

== ENCOUNTER → 2021-07-15 15:07 | Outpatient (BNVA) | payer BC, SELFPAY | PROVIDERS: PCP Internal Medicine; Referring Provider Internal Medicine; Visit Provider Nurse Practitioner Family ==

== ENCOUNTER → 2021-08-09 12:58 | Outpatient (BNVA) | payer BC, SELFPAY | PROVIDERS: PCP Internal Medicine; Visit Provider Internal Medicine Pulmonary Disease | DX: Z13.89 Encounter for screening for other disorder (principal) ==

== ENCOUNTER 2021-08-12 15:26 | Outpatient (REF) | payer BC, SELFPAY | END 2021-08-12 15:27 | disposition home or self-care (01) | LOC: HO.LAB 15:26 | PROVIDERS: PCP Internal Medicine; Referring Provider Internal Medicine; Visit Provider Nurse Practitioner Family | DX: R13.12 Dysphagia, oropharyngeal phase (principal); K21.9 Gastro-esophageal reflux disease without esophagitis; K59.04 Chronic idiopathic constipation; Z79.899 Other long term (current) drug therapy | CPT/HCPCS: 36415; 86003 ==

== ENCOUNTER → 2021-09-16 15:34 | Outpatient (REF) | payer BC, SELFPAY | LOC: HO.SL 15:34 | PROVIDERS: PCP Internal Medicine; Visit Provider Internal Medicine Pulmonary Disease | DX: G47.33 Obstructive sleep apnea (adult) (pediatric) (principal) | CPT/HCPCS: 95806 ==

== ENCOUNTER → 2021-09-20 13:27 | Outpatient (BNVA) | payer BC, SELFPAY | PROVIDERS: PCP Internal Medicine; Visit Provider Internal Medicine Pulmonary Disease | DX: Z13.89 Encounter for screening for other disorder (principal) ==

== ENCOUNTER → 2021-10-14 15:08 | Outpatient (BNVA) | payer BC, SELFPAY | PROVIDERS: PCP Internal Medicine; Referring Provider Internal Medicine; Visit Provider Nurse Practitioner Family | DX: Z13.89 Encounter for screening for other disorder (principal) ==

== ENCOUNTER 2021-11-15 14:02 | Outpatient (REF) | payer BC, SELFPAY ==
--- NOTE | ~2021-11-15 | XR_ITS ---
EXAMINATION: XR KNEE, RIGHT XR KNEE, LEFT CLINICAL INFORMATION: Knee pain COMPARISON: None TECHNIQUE: Each knee is imaged in standing AP and lateral views. There are a total of 4 views, two on each side. FINDINGS: There is no fracture, dislocation, or definite suprapatellar effusion. Hoffa's fat pad appears normal on each side. No destructive process or periostitis. There is no definite knee joint compartment narrowing and no subchondral sclerosis or erosive change or visible chondrocalcinosis. There are some scattered surgical clips in the soft tissues on each side. XR/XR knee RT 2V IMPRESSION: -No definite knee joint compartment narrowing or effusion. -No erosive change or chondrocalcinosis.
--- NOTE | ~2021-11-15 | XR_ITS ---
EXAMINATION: XR KNEE, RIGHT XR KNEE, LEFT CLINICAL INFORMATION: Knee pain COMPARISON: None TECHNIQUE: Each knee is imaged in standing AP and lateral views. There are a total of 4 views, two on each side. FINDINGS: There is no fracture, dislocation, or definite suprapatellar effusion. Hoffa's fat pad appears normal on each side. No destructive process or periostitis. There is no definite knee joint compartment narrowing and no subchondral sclerosis or erosive change or visible chondrocalcinosis. There are some scattered surgical clips in the soft tissues on each side. XR/XR knee LT 2V IMPRESSION: -No definite knee joint compartment narrowing or effusion. -No erosive change or chondrocalcinosis.
== END 2021-11-15 14:03 | disposition home or self-care (01) ==
LOC: HO.XRAY 14:02
PROVIDERS: PCP Internal Medicine; Visit Provider Internal Medicine
DX: M25.561 Pain in right knee (principal); M25.562 Pain in left knee
CPT/HCPCS: 73560

== ENCOUNTER 2022-05-07 12:46 | Day surgery (SDC) | payer BC, SELFPAY ==
--- NOTE | 2022-05-07 13:13 | HO.ANESPROP2 ---
HPI - Anesthesia Eval Consult details Narrative: 52 yo female patient for EGD, Soto PH test PMF Active Problems Active Problems: All Active Problems (Updated 05/07/22 @ 13:52 by Patience Nuñez MD) Paronychia of finger (Acute) Chronic idiopathic constipation (Acute) Gastroesophageal reflux disease (Acute) Acne vulgaris (Acute) Folliculitis (Acute) Shingles (Acute) Dysphagia (Acute) EDD (obstructive sleep apnea)- Sleep study 09/2021- Negative for EDD Thyroid disease (Acute) Weight loss (Acute) Abdominal pain (Acute) Pain in pelvis (Acute) Anxiety about health (Acute) Toe pain (Acute) Past Medical History Medical History Angiomyolipoma of right kidney Brain lesion Chronic idiopathic constipation Gastroesophageal reflux disease Mass of uterus Toe pain Family History Family History Father Leukemia Arthritis, rheumatoid Mother No problems noted. Family history of problems with anesthesia: No Surgical History Surgical History History of bunionectomy of right great toe History of delivery History of colonoscopy History of esophagogastroduodenoscopy (EGD) Hx of toe surgery Hx of tubal ligation History of Problems with Anesthesia: No Social History Social History Housing: House Alcohol intake: current Alcohol intake frequency: holidays/special occasions only Patient Tobacco Use Status: Never used Tobacco Second Hand Smoke Exposure: No Advance Directives: No Advance Directives Information Provided: Yes service: No Current occupational status: employed Meds Allergies Allergy/AdvReac Type Severity Reaction Status Date / Time kiwi Allergy Severe rash Verified 04/28/22 08:31 Penicillins [PENICILLINS] Allergy Intermediate SEVERE RASH Verified 04/28/22 08:31 Sulfa (Sulfonamide Allergy Intermediate RASH Verified 04/28/22 08:31 Antibiotics) [SULFA(SULFONAMIDE ANTIBIOTICS)] Home Medications Medication Instructions Recorded Confirmed Last Taken Type acetaminophen 325 mg tablet 325 mg PO Q4-6H PRN 06/20/20 04/28/22 Unknown History (Tylenol) cholecalciferol (vitamin D3) 50 50 mcg PO DAILY 06/20/20 04/28/22 Unknown History mcg (2,000 unit) capsule ferrous sulfate 325 mg (65 mg 325 mg PO DAILY 06/20/20 04/28/22 Unknown History iron) tablet (Feosol) mecobalamin (vitamin B12) 1,000 1,000 mcg sublingual DAILY 06/20/20 04/28/22 Unknown History mcg disintegrating tablet,sublingual ascorbate calcium (vitamin C) 500 500 mg PO DAILY 04/17/22 04/28/22 Unknown History mg tablet Exam Exam Date and Time: May 07, 2022 1313 Height,Weight and Vital Signs: Height 5 ft 8 in Weight 58 kg Vital Signs Temp Pulse Resp BP Pulse Ox O2 Del Method 05/07/22 13:32 97.9 F 89 16 110/68 96 Room Air Airway Mallampati Class: II TM Dist: >3cm Neck ROM: Full Loose/Missing/Broken Teeth: Yes (Broken top right) Heart: RRR Lungs: CTAB Assessment and Plan Assessment Anesthesia Assessment: Anesthesia Plan Discussed and Chart Reviewed Final Anesthetic Review Family History of Problems with Anesthesia: No History of Problems with Anesthesia: No NPO: Yes ASA Class: II Final Preanesthetic Review: No Changes in Pt Med Stat, Meds/Allgs Chart Reviewed, Consent Obtained/Reviewed and Anes Risks/Benef Reviewed Patient Risk: Low Procedure Risk: Low Assessment/Block/Sedation in SS: Assess/Block/Sedation-SS Anesthetic Plan Anesthetic Plan: MAC: Disposition: Standard PACU
--- NOTE | 2022-05-07 13:15 | MHC.SHP ---
Pre-Procedural Eval Section A Date of Service: 05/07/22 Section B Chief Complaint: Dysphagia, Details of Present Illness: ribera placement Relevant Family History (Specify if Yes): No Relevant Social History: None Present Medications: see Short Stay Collaborative assessment Medical History: Significant History (Angiomyolipoma of right kidney Brain lesion Chronic idiopathic constipation Gastroesophageal reflux disease Mass of uterus Toe pain) History of Previous Operations: Relevant previous surgery/procedure and date(s) (History of bunionectomy of right great toe History of delivery History of colonoscopy History of esophagogastroduodenoscopy (EGD) Hx of toe surgery Hx of tubal ligation) Allergies: Allergies Allergy/AdvReac Type Severity Reaction Status Date / Time kiwi Allergy Severe rash Verified 04/28/22 08:31 Penicillins [PENICILLINS] Allergy Intermediate SEVERE RASH Verified 04/28/22 08:31 Sulfa (Sulfonamide Allergy Intermediate RASH Verified 04/28/22 08:31 Antibiotics) [SULFA(SULFONAMIDE ANTIBIOTICS)] Review of Systems Sugical H&P ROS: Negative: Constitution, Cardiovascular, Respiratory, Neurological, Psychiatric, Hem-Onc, Allergic/Immunologic, Gastrointestinal, Genitourinary, Musculoskeletal, Integumentary, Endocrine and Eyes/Ears/Nose/Throat Exam Surgical H&P Exam: Normal: HEENT, Normal: Heart, Normal: Lungs, Normal: Extremities, Normal: Abdomen, Normal: Skin and Normal: Neurological Plan Diagnosis/Plan: Unchanged I have reviewed the history and physical and performed a pertinent physical examination on my patient. No changes have occurred unless specified. Time Spent With Patient Time: Total time managing care of this patient today ____ minutes.
[2022-05-07 13:32] VITALS: BP 110/68; PULSE 89; RESP 16; TEMP 36.6; O2SAT 96
--- NOTE | 2022-05-07 13:34 | W.PM.OPN ---
Operative Note Operative Note Date of Service: 05/07/22 Narrative: Procedure Description: EGD Indication: dysphagia Anesthesia: MAC FLEXIBLE TRANSORAL UPPER GASTROINTESTINAL ENDOSCOPY UPPER ENDOSCOPY Consent: Indications for the procedure and potential complications of bleeding, perforation, reaction to medications and missed diagnosis were discussed with the patient and informed consent was obtained. Instrument: Olympus GIF H 190 J mid size upper endoscope Monitoring: Vital signs and clinical assessment, continuous EKG monitoring, Pulse oximetry, Carbon Dioxide monitoring and blood pressure monitoring were done throughout the procedure. Procedure: The patient was placed in the left lateral decubitis position and pre-procedure medications were administered and a bite block was placed. The endoscope was inserted into the mouth and advanced under direct vision to the third part of duodenum. A careful inspection was made as the upper endoscope was withdrawn including a retroflexed examination of the proximal stomach; Findings and interventions are described below. Findings: Larynx:normal Esophagus: GE junction at 43 cm, diaphragm hiatus at 43 cm, mild bogginess at GEJ, bx taken from GEJ and distal/proximal esophagus. Balloon dilation doen to 19 mm at GEJ and 18 mm at upper esophagus, no tears seen Stomach: Normal mucosa. Biopsies were obtained. Grade 2 flap valve on retroflexed examination of the cardia. Duodenum: Normal bulb and descending duodenum Intervention: Biopsies as noted above, Lanier testing, ballon dilation Impression/Findings: mild esophagitis PLAN: await LANIER inforamtion, cont with PPI, pH on monitor was 5.8 today
[2022-05-07 13:51] VITALS: BMI 19.4
[2022-05-07 14:19] VITALS: BP 113/53; PULSE 85; RESP 18; TEMP 36.7; O2SAT 99
[2022-05-07 14:34] VITALS: BP 121/86; PULSE 80; RESP 18; TEMP 36.2; O2SAT 100
== END 2022-05-07 15:08 | disposition home or self-care (01) ==
PROVIDERS: PCP Internal Medicine; Visit Provider Internal Medicine Gastroenterology
PROC: (CPT 43249; principal; 2022-05-07 14:30)
DX: R13.12 Dysphagia, oropharyngeal phase (principal); K20.80 Other esophagitis without bleeding; K44.9 Diaphragmatic hernia without obstruction or gangrene; K21.9 Gastro-esophageal reflux disease without esophagitis; K59.04 Chronic idiopathic constipation; D17.71 Benign lipomatous neoplasm of kidney; G93.9 Disorder of brain, unspecified; Z79.899 Other long term (current) drug therapy; Z88.0 Allergy status to penicillin; Z88.2 Allergy status to sulfonamides; Z98.890 Other specified postprocedural states
CPT/HCPCS: 43249; 43239; 88305; 88342; C1726

== ENCOUNTER → 2022-05-20 15:13 | Outpatient (BNVA) | payer BC, SELFPAY | PROVIDERS: PCP Internal Medicine; Visit Provider Orthopaedic Surgery | DX: Z13.89 Encounter for screening for other disorder (principal) ==

== ENCOUNTER 2022-05-21 15:11 | Outpatient (REF) | payer BC, SELFPAY ==
--- NOTE | ~2022-05-21 | XR_ITS ---
EXAMINATION: XR CHEST CLINICAL INFORMATION: K21.9 - Gastro-esophageal reflux disease without esophagitis COMPARISON: Chest radiographs 07/08/2021, 03/25/2021 TECHNIQUE: 2 views of the chest were obtained. FINDINGS: Mild hyperinflation similar to prior studies. No airspace consolidation or groundglass opacity, atelectasis, or effusion. The heart is normal in size and the hilar and mediastinal contours are normal. No acute bony abnormality. Again, there is nodular density central left upper zone corresponding to calcified costal cartilage first rib. XR/XR chest 2V IMPRESSION: No acute intrathoracic disease.
== END 2022-05-21 15:12 | disposition home or self-care (01) ==
LOC: HO.XRAY 15:11
PROVIDERS: Absent Provider Internal Medicine Gastroenterology; PCP Internal Medicine; Visit Provider Nurse Practitioner Family
DX: K21.9 Gastro-esophageal reflux disease without esophagitis (principal); R13.12 Dysphagia, oropharyngeal phase; K59.04 Chronic idiopathic constipation
CPT/HCPCS: 71046

== ENCOUNTER → 2022-06-23 08:01 | Outpatient (REF) | payer BC, SELFPAY ==
--- NOTE | ~2022-06-23 | NM_ITS ---
EXAMINATION: RADIONUCLIDE SOLID FOOD GASTRIC EMPTYING 4-HOUR STUDY CLINICAL INFORMATION: Gastroesophageal reflux disease without esophagitis. COMPARISON: No previous gastric emptying study is available for comparison. TECHNIQUE: A standard meal consisting of 4 oz of Egg Beaters brand equivalent tagged with 1.0 mCi Tc-99m Sulfur Colloid, 8 oz water and 2 slices of toast with jelly was administered orally to the patient. Images were obtained using a dual head gamma camera in the anterior and posterior projections over of the stomach immediately post ingestion and at hourly intervals up to 4 hours post ingestion. The anterior and posterior counts at each time interval were averaged using the geometric mean and expressed as percentage of the immediate post ingestion counts. FINDINGS: There is good visualization of activity in the stomach immediately post ingestion. As the study progresses, there is good clearance of activity from the stomach and visualization of progressively increasing small bowel activity. By the end of the study, there is almost no retention noted in the stomach. Retention in the stomach at each time interval was: 1 hour 90% (normal 37%-90%) 2 hours 67% (normal 30%-60%) 3 hours 17% 4 hours 1% (normal 0%-10%) NM/NM gastric emptying study IMPRESSION: Normal 4-hour solid food gastric emptying study.
== END ==
LOC: HO.NUCMED 08:01
PROVIDERS: Visit Provider Nurse Practitioner Family
DX: R13.12 Dysphagia, oropharyngeal phase (principal); K21.9 Gastro-esophageal reflux disease without esophagitis
CPT/HCPCS: 78264; A9541

== ENCOUNTER → 2022-07-02 15:16 | Outpatient (BNVA) | payer BC, SELFPAY | PROVIDERS: PCP Internal Medicine; Visit Provider Nurse Practitioner Family | DX: Z13.89 Encounter for screening for other disorder (principal) ==

== ENCOUNTER 2022-09-09 16:54 | Outpatient (REF) | payer BC, SELFPAY ==
[2022-09-10 04:18] LABS: Syphilis Screen Nonreactive (Nonreactive)
[2022-09-10 04:41] LABS: HBc Num1 0.08 S/CO (0.00-0.79); HBsAGNum1 0.32 S/CO (0.00-0.99); HIV AB/AG Nonreactive (Nonreactive); HIV Num 1 0.06 S/CO (0.00-0.99); Hepatitis B Core Antibody Nonreactive (Nonreactive); Hepatitis B Surface Antigen Negative (Negative); ~HepC Num1 0.08 S/CO (0.00-0.79); ~Hepatitis B Surface Antibody REACTIVE (Nonreactive); ~Hepatitis C Antibody Nonreactive (Nonreactive)
[2022-09-10 08:36] LABS: CT PCR NOT DETECTED (Not Detect.); NG PCR NOT DETECTED (Not Detect.)
== END 2022-09-09 16:55 | disposition home or self-care (01) ==
LOC: HO.LAB 16:54
PROVIDERS: PCP Internal Medicine; Visit Provider Nurse Practitioner Family
DX: Z11.4 Encounter for screening for human immunodeficiency virus [HIV] (principal); R10.2 Pelvic and perineal pain; Z20.2 Contact with and (suspected) exposure to infections with a predominantly sexual mode of transmission
CPT/HCPCS: 0353U; 86704; 86706; 86780; 86803; 87086; 87147; 87340; 87389

== ENCOUNTER 2022-09-12 14:47 | Outpatient (REF) | payer BC, SELFPAY ==
--- NOTE | ~2022-09-12 | US_ITS ---
EXAMINATION: US RETROPERITONEAL LIMITED (RENAL ONLY) CLINICAL INFORMATION: Flank pain. COMPARISON: Previous abdominal ultrasound July [address] of the abdomen and pelvis June 2018 TECHNIQUE: Grayscale and color imaging of the kidneys. FINDINGS: RIGHT KIDNEY: 10.2 x 3.8 x 4.6 cm (SAG x AP x TRV). The kidney is normal in size, contour, and echogenicity. Renal cortical thickness is normal. There is a 5 x 6 mm echogenic lesion in the upper pole of the right kidney suggestive of a benign angiomyolipoma. This is similar to previous exams. There is a small 2 mm stone in the lower pole. No hydronephrosis. LEFT KIDNEY: 9.6 x 5.1 x 4.4 cm (SAG x AP x TRV). The kidney is normal in size, contour, and echogenicity. Renal cortical thickness is normal. No calculi or focal parenchymal lesions. No hydronephrosis. US/US renal BI IMPRESSION: Stable 5 x 6 mm echogenic lesion in the upper pole suggestive of an angiomyolipoma. Small right renal stone. No hydronephrosis.
== END 2022-09-12 14:48 | disposition home or self-care (01) ==
LOC: HO.US 14:47
PROVIDERS: PCP Internal Medicine; Visit Provider Internal Medicine
DX: R10.9 Unspecified abdominal pain (principal); M54.50 Low back pain, unspecified
CPT/HCPCS: 76775

== ENCOUNTER 2022-10-22 15:38 | Outpatient (REF) | payer BC, SELFPAY ==
--- NOTE | ~2022-10-22 | US_ITS ---
EXAMINATION: US RETROPERITONEAL LIMITED (RENAL ONLY) CLINICAL INFORMATION: Kidney stone. COMPARISON: Previous renal ultrasound exam September [address] of the abdomen and pelvis 2018 TECHNIQUE: Grayscale and color imaging of the kidneys FINDINGS: RIGHT KIDNEY: 10.4 x 4.1 x 4.9 cm (SAG x AP x TRV). The kidney is normal in size, contour, and echogenicity. Renal cortical thickness is normal. There is a 6 x 4 x 4 mm echogenic lesion in the upper pole suggestive of an angiomyolipoma. This is similar to previous exams. There is a 0.5 cm minimally complex cyst in the midpole with posterior wall calcification or milk of calcium cyst. No calculi. No hydronephrosis. LEFT KIDNEY: 10 x 5.5 x 5 cm (SAG x AP x TRV). The kidney is normal in size, contour, and echogenicity. Renal cortical thickness is normal. No calculi or focal parenchymal lesions. No hydronephrosis. US/US renal BI IMPRESSION: No stone seen. 5 mm stable echogenic lesion in the upper pole of the right kidney suggestive of a benign angiomyolipoma.
== END 2022-10-22 15:39 | disposition home or self-care (01) ==
LOC: HO.US 15:38
PROVIDERS: PCP Internal Medicine; Visit Provider Internal Medicine
DX: N20.0 Calculus of kidney (principal)
CPT/HCPCS: 76775

== ENCOUNTER 2022-10-27 14:01 | Outpatient (REF) | payer BC, SELFPAY ==
[2022-10-27 16:21] LABS: Urine Cytology See Pathology rpt
== END 2022-10-27 14:02 | disposition home or self-care (01) ==
LOC: HO.LNP 14:01
PROVIDERS: PCP Internal Medicine; Visit Provider Nurse Practitioner Family
DX: N28.1 Cyst of kidney, acquired (principal); N20.0 Calculus of kidney; D17.71 Benign lipomatous neoplasm of kidney
CPT/HCPCS: 88112

== ENCOUNTER 2022-12-08 14:38 | Outpatient (REF) | payer BC, SELFPAY ==
[2022-12-08 16:26] LABS: Appearance Urine Clear; Color Urine Yellow; Glucose Urine UA Negative (Negative); Leukocyte Esterase Urine Moderate (2+) (Negative); Nitrite Urine Negative (Negative); PH 5.5 (5.0-9.0); UMIC TRIGGER UACC YES; Urine Blood Moderate (2+) (Negative); Urine Ketones Negative (Negative); Urine Protein Negative (Neg-Trace)
[2022-12-08 16:31] LABS: Bacteria Urine None Seen (None Seen); Hyaline Casts Urine 0-2 /LPF (0-2); RBC Urine >20 /HPF (0-2); Squamous Epithelial Cell Urine 0-2 /HPF (0-2); UACC Culture Trigger YES; WBC Urine >50 /HPF (0-5)
[2022-12-09 04:14] LABS: HIV AB/AG Nonreactive (Nonreactive); HIV Num 1 0.05 S/CO (0.00-0.99)
== END 2022-12-08 14:39 | disposition home or self-care (01) ==
LOC: HO.HMGCLDS 14:38
PROVIDERS: Absent Provider Nurse Practitioner Family; PCP Internal Medicine; Visit Provider Internal Medicine
DX: R39.9 Unspecified symptoms and signs involving the genitourinary system (principal); Z11.3 Encounter for screening for infections with a predominantly sexual mode of transmission
CPT/HCPCS: 36415; 81001; 87086; 87147; 87389

== ENCOUNTER 2022-12-11 15:43 | Outpatient (REF) | payer BC, SELFPAY ==
--- NOTE | ~2022-12-11 | MR_ITS ---
EXAMINATION: MR ABDOMEN WITHOUT AND WITH CONTRAST CLINICAL INFORMATION: Renal mass COMPARISON: Renal ultrasound 10/22/2022 TECHNIQUE: MRI of the abdomen before and after the IV administration of 6 mL of Gadavist was obtained using routine sequences. FINDINGS: LUNG BASES: The visualized lung bases are unremarkable. KIDNEYS AND URETERS: Bosniak 1 benign-appearing bilateral renal cysts no imaging follow-up recommended. Tiny 3 mm focus of macroscopic fat in the right upper pole which may reflect a tiny angiomyolipoma. GALLBLADDER: Unremarkable. LIVER AND BILIARY TREE: The liver is normal in signal and morphology. No suspicious liver lesion. No intra or extrahepatic biliary duct dilatation. PANCREAS: Unremarkable SPLEEN: Unremarkable ADRENAL GLANDS: Unremarkable GASTROINTESTINAL TRACT: Unremarkable. LYMPH NODES: No lymphadenopathy. VASCULAR: Unremarkable ABDOMINAL WALL: Unremarkable. OSSEOUS STRUCTURES: Multilevel degenerative disc disease. Incidentally noted sacral Tarlov cyst. MR/MR kidney wo/w con IMPRESSION: Tiny 3 mm right renal angiomyolipoma.
== END 2022-12-11 15:44 | disposition home or self-care (01) ==
LOC: HO.MRI 15:43
PROVIDERS: PCP Internal Medicine; Visit Provider Nurse Practitioner Family
DX: N28.89 Other specified disorders of kidney and ureter (principal)
CPT/HCPCS: 74181; A9585

== ENCOUNTER 2022-12-24 15:27 | Outpatient (AMB) | payer BC, SELFPAY ==
--- NOTE | 2022-12-24 15:31 | A.OFFVIS_ITS ---
Intake Intake Visit Reasons: 1m/MRI(set) Intake Note: Patient presents for follow up MRI (imaging 12/11/22) Urology Medications: none Blood Thinner: none Network Program Manager Required: No Accompanied by: Self / Same As Patient Allergies kiwi Allergy (Severe, Verified 12/24/22 15:50) rash Penicillins [PENICILLINS] Allergy (Intermediate, Verified 12/24/22 15:50) SEVERE RASH Sulfa (Sulfonamide Antibiotics) [SULFA(SULFONAMIDE ANTIBIOTICS)] Allergy (Intermediate, Verified 12/24/22 15:50) RASH Medication List - Last Reconciled 12/24/22 by ROBERT Christina-PIA acetaminophen (Tylenol) 325 mg PO Q4-6H PRN ascorbate calcium (vitamin C) 500 mg PO DAILY cholecalciferol (vitamin D3) 50 mcg PO DAILY esomeprazole magnesium (Nexium) 40 mg PO BID famotidine 40 mg PO BEDTIME ferrous sulfate (Feosol) 325 mg PO DAILY mecobalamin (vitamin B12) 1,000 mcg sublingual DAILY nortriptyline 10 mg PO BEDTIME prucalopride (Motegrity) 2 mg PO DAILY HPI HPI Comments History of Present Illness Details Gina is a very pleasant 52 year old female patient of Dr. Marie. She has a past medical history of brain lesion, chronic idiopathic constipation, GERD, and a mass in her uterus that was removed December of 2020. She presents to the office today for follow-up. Of note, patient was seen approximately 2 months ago as a new patient for nephrolithiasis, complex renal mass and angiolipoma at which time a MRI renal mass protocol was ordered and has since been completed. These results were reviewed with the patient today. Chrisk 1 benign-appearing bilateral renal cysts no imaging follow-up recommended.? Tiny 3 mm focus of macroscopic fat in the right upper pole which may reflect a tiny angiomyolipoma. She discusses at length her anxiety over her health. Discussed at length causes of nephrolithiasis as well as importance of drinking increased amounts of water daily. Patient endorses minimal water intake. She reports for many years in her life since she was a teenager she drinks coffee all throughout her day. She reports attempting to drink plenty of water daily since her last visit here however somedays are harder than others in doing so. Discussed and stressed the importance of incorporating water verses coffee. She otherwise denies any urinary issues or concerns at this time. When asked she denies urinary urgency, urinary frequency, incontinence, nocturia, hematuria, dysuria, foul smelling urine, changes to urinary stream, fever, and or chills. She is happy with her current voiding parameters. In office urinalysis results reviewed with the patient today. She discusses following up with her PCP for UTI like symptoms and being treated for a UTI. Discussed at length potential causes of urinary tract infections as well as affects of urinary tract infections. She reports finishing antibiotic therapy and symptoms have since resolved however does continue to endorse right sided back/flank pain. [facility] Medical History Angiomyolipoma of right kidney Brain lesion Chronic idiopathic constipation Gastroesophageal reflux disease Mass of uterus Toe pain Surgical History History of bunionectomy of right great toe History of delivery History of colonoscopy History of esophagogastroduodenoscopy (EGD) Hx of toe surgery Hx of tubal ligation Family History Father Leukemia Arthritis, rheumatoid Mother No problems noted. 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 Cognitive needs: No Hearing needs: No Vision needs: No Review of Systems Const All systems reviewed & are unremarkable except as noted in HPI and below Eyes Reports no additional complaints ENT Reports no additional complaints Card Reports no additional complaints Resp Reports no additional complaints GI Reports as per HPI Reports as per HPI Neuro Reports as per HPI Endo Reports no additional complaints Physical Exam Const General: cooperative, healthy appearing, comfortable, no acute distress, well developed, alert and awake Nutritional Appearance: thin Orientation/consciousness: patient oriented x3 Limitations: no limitations HEENT Head: Yes normal to inspection, Yes normocephalic and Yes atraumatic Ears: hearing grossly normal bilaterally Eyes General: appearance normal, both eyes and all related structures Neck Neck: Yes normal visual inspection and Yes trachea midline Chest Chest palpation & inspection: normal inspection of the chest Resp Effort & Inspection: normal respiratory effort and able to speak in complete sentences Cardio Rate: regular rate GI Inspection: Yes normal to inspection General: Yes no CVA tenderness Back/Spine/Pelvis Back: no CVA tenderness Skin General skin exam: no rashes or lesions noted Neuro General: patient oriented x3 Extrem General: Yes normal to inspection Psych Appearance: grossly normal and well kempt Mental Status: mental status grossly normal Speech and movement: Normal speech and movement present and Clear speech present Affect: normal affect Attitude: cooperative Thought process: Normal thought process present Thought content: Normal thought content present Insight: Good insight present (Psych) Judgement: Good judgement present (Psych) Results AMB Urinalysis, Automated UA Leukoctes 0 Piter/uL Last Edit by StrategyEye Joypamela on 12/24/22 16:08 UA Nitrite Last Edit by Upmann'spamela on 12/24/22 16:08 UA Urobilinogen 0.2 mg/dL Last Edit by Upmann'spamela on 12/24/22 16:08 UA Protein 15 mg/dL Last Edit by StrategyEye Joypamela on 12/24/22 16:08 UA pH 6.0 Last Edit by Familybuilder on 12/24/22 16:08 UA Blood 80 Donny/uL Last Edit by Upmann'spamela on 12/24/22 16:08 UA Specific [place] 1.030 Last Edit by Familybuilder on 12/24/22 16:08 UA Ketone Negative Last Edit by Upmann'spamela on 12/24/22 16:08 UA Bilirubin 0 mg/dL Last Edit by Upmann'spamela on 12/24/22 16:08 UA Glucose 0 mg/dL Last Edit by Familybuilder on 12/24/22 16:08 Results Reviewed Results Reviewed: Laboratory Last Values Urine pH (Auto) 6.0 12/24/22 15:34 Specific [place] (Auto) 1.030 12/24/22 15:34 Urine Protein (Auto) 15 mg/dL 12/24/22 15:34 Glucose (UA)(Auto) 0 mg/dL 12/24/22 15:34 Urine Ketones (Auto) Negative 12/24/22 15:34 Urine Blood (Auto) 80 Donny/uL 12/24/22 15:34 Urine Bilirubin (Auto) 0 mg/dL 12/24/22 15:34 Urine Urobilinogen (Auto) 0.2 mg/dL 12/24/22 15:34 Leukocyte Esterase (Auto) 0 Piter/uL 12/24/22 15:34 Date of Service: 12/11/22 EXAMINATION: MR ABDOMEN WITHOUT AND WITH CONTRAST FINDINGS: LUNG BASES: The visualized lung bases are unremarkable.? KIDNEYS AND URETERS: Bosniak 1 benign-appearing bilateral renal cysts no imaging follow-up recommended.? Tiny 3 mm focus of macroscopic fat in the right upper pole which may reflect a tiny angiomyolipoma. GALLBLADDER: Unremarkable.? LIVER AND BILIARY TREE: The liver is normal in signal and morphology. No suspicious liver lesion. No intra or extrahepatic biliary duct dilatation. PANCREAS: Unremarkable? SPLEEN: Unremarkable? ADRENAL GLANDS: Unremarkable? ? GASTROINTESTINAL TRACT: Unremarkable. ? LYMPH NODES: No lymphadenopathy. VASCULAR: Unremarkable ABDOMINAL WALL: Unremarkable.? OSSEOUS STRUCTURES: Multilevel degenerative disc disease.? Incidentally noted sacral Tarlov cyst. IMPRESSION: ? Tiny 3 mm right renal angiomyolipoma.? Assessment & Plan Assessment & Plan (1) Nephrolithiasis: Code(s): N20.0 - Calculus of kidney (2) Angiolipoma of right kidney: Code(s): D17.71 - Benign lipomatous neoplasm of kidney Plan In office urinalysis results reviewed with the patient today. Recent MRI imaging results reviewed with the patient today; as noted above. Will continue with surveillance monitoring. Reassurance provided Discussed UTI prevention with D mannose supplement, vitamin-C, increasing fluid intake, behavioral therapy with timed voiding, perineal hygiene and postcoital voiding, and management of constipation with stool softeners and increased fiber intake. Discussed, educated, encouraged on the importance of drinking plenty of water daily. Discusses symptoms arise to call office for further assessment evaluation. Discussed near future in office cystoscopy if patient continues with frequent urinary tract infections. Discussed UTI prevention with vitamin-C and methenamine verses low-dose antibiotic therapy if patient continues with recurrent urinary tract infections. Retroperitoneal ultrasound in 6 months. Follow-up in 6 months with imaging to be completed prior; or sooner with any issues, concerns, and or questions. Orders: Orders US retroperitoneal comp 6 Months D17.71 - Benign lipomatous neoplasm of kidney, N20.0 - Calculus of kidney, N39.0 - Urinary tract infection, site not specified AMB Urinalysis Automated 12/24/22 Z13.9 - Encounter for screening, unspecified Patient Instructions: The patient had an opportunity to ask questions regarding the treatment plan. All questions were answered. Physical exam, labs, and imaging were discussed and reviewed in detail. As well as risks, benefits, and discussion of treatment choices. No major barriers to understanding were identified. The patient expressed understanding and agreement with the above treatment plan. The patient was made aware they should contact our office by phone for worsening of their current condition, the appearance of new symptoms, or with any questions or concerns. Compliance is encouraged with any medications and follow up testing that is ordered. It is a privilege to be allowed the opportunity to participate in? your urological care.? Again, if you have any questions or concerns If you have any questions or concerns please do not hesitate to contact me. The office is [phone]. This note is constructed using voice recognition software. While every effort has been made to ensure accuracy unix engineer errors may have been included. Yours sincerely, SAAD Christina Coding Level of Care Code Est Pt Level 3 (78638) Diagnoses Nephrolithiasis N20.0 Angiolipoma of right kidney D17.71 Time Spent (min) 35
== END 2022-12-24 16:22 | disposition home or self-care (01) ==
PROVIDERS: PCP Internal Medicine; Visit Provider Nurse Practitioner Family
DX: N20.0 Calculus of kidney (principal); D17.71 Benign lipomatous neoplasm of kidney
CPT/HCPCS: 99213

== ENCOUNTER → 2022-12-24 15:27 | Outpatient (BNVA) | payer BC, SELFPAY | PROVIDERS: PCP Internal Medicine; Visit Provider Nurse Practitioner Family | DX: N20.0 Calculus of kidney (principal); D17.71 Benign lipomatous neoplasm of kidney | CPT/HCPCS: 81003 ==

== ENCOUNTER 2023-01-06 15:20 | Outpatient (AMB) | payer BC, SELFPAY ==
--- NOTE | 2023-01-06 15:30 | A.OFFVIS_ITS ---
Intake Vital Signs 01/06/23 15:35 Height 5 ft 8 in Weight 141 lb 15.643 oz BMI 21.6 BP 105/63 Blood Pressure Location Lt brachial Position Sitting Pulse 63 Intake Visit Reasons: r/s from original appointment Intake Note: Gina presents in office as a est.patient for a f/u for [facility] PT CC: pt reports having abdominal pain cramping, diarrhea, trouble swallowing foods/liquids pt denies any other GI Issues Test And Balance Engineer Required: No Accompanied by: Self / Same As Patient Allergies kiwi Allergy (Severe, Verified 01/06/23 15:30) rash Penicillins [PENICILLINS] Allergy (Intermediate, Verified 01/06/23 15:30) SEVERE RASH Sulfa (Sulfonamide Antibiotics) [SULFA(SULFONAMIDE ANTIBIOTICS)] Allergy (Intermediate, Verified 01/06/23 15:30) RASH HPI r/s from original appointment HPI Details LAST VISIT Chronic idiopathic constipation Continue current treatment with Motegrity Dysphagia Referral to ENT. Long discussion with patient about reducing stress, avoiding dietary triggers like hot coffee and drink liquids that are not hot. Continue current treatment with PPI. Eat small bites, chew well and drink fluids with each bite. Patient was encouraged to eat slow. I will see her in 3 months sooner on as needed basis. Patient might need to go for fundoplication if she will have no improvement. We can refer her to motility specialist as well Dr. Sahra Mahajan MD [phone] [facility]. Patient is agreeable to plan of care and verbalizes understanding of instructions. She was given the opportunity to ask questions all questions answered. ? Thank you for allowing me to participate in her care Plan Medications Refilled nortriptyline 10 mg PO BEDTIME 30 caps 2RF TODAY'S VISIT Patient is here today for follow-up. Patient reports that she has been feeling little better, however she continues to have occasional dysphagia. Patient feels like this might be stress low related. Patient went to see ENT, reports that she had ultrasound of her neck done and they did not find any issues. Patient states that provider room was going to offer stroboscopy and they were going to decide it on her next appointment, however she states that she has not made follow-up appointment with than yet. Patient reports that she does not have dyspepsia or acid reflux. Patient states that the nortriptyline seems not to be making much of a difference. Patient states that she was constipated, however now with Linder blocks 2 tablets or sometimes 3 tablets at night time she is able to move her bowels every single day. Patient reports that she ran out of the Motegrity and did not see a difference when she was taking the Motegrity or without it. Patient denies nausea or vomiting. Denies melena, hematochezia, unintentional weight loss or ribbon like stools. Patient reports that she no longer is taking ibuprofen. Patient states that she takes Tylenol. She admits that she was using ibuprofen almost every day. Patient also reports that she is drinking less coffee. Tries to drink more water. She continues to be under a lot of stress. Patient continues to be working all longer hours. Does not find any time to take care of herself. Patient states that she is going to try to slow down beginning of the new year. [facility] Medical History Angiomyolipoma of right kidney Brain lesion Chronic idiopathic constipation Gastroesophageal reflux disease Mass of uterus Toe pain Surgical History History of bunionectomy of right great toe History of delivery History of colonoscopy History of esophagogastroduodenoscopy (EGD) Hx of toe surgery Hx of tubal ligation Family History Father Leukemia Arthritis, rheumatoid Mother No problems noted. 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 Cognitive needs: No Hearing needs: No Vision needs: No Review of Systems Const Denies weight gain and Denies weight loss ENT Reports no additional complaints, Reports dysphagia and Denies odynophagia Card Reports no additional complaints Resp Reports no additional complaints GI Denies abdominal pain, Denies belching, Denies melena, Denies bloating, Denies change in bowel habits, Reports constipation, Reports dysphagia, Denies excessive flatus, Denies dyspepsia, Denies heartburn, Denies diarrhea, Denies loose stools, Denies nausea, Denies odynophagia and Denies vomiting Reports no additional complaints Musc Reports no additional complaints Neuro Reports no additional complaints Psych Reports no additional complaints Endo Reports no additional complaints Physical Exam Vital Signs: Last Vital Signs Pulse 63 01/06/23 15:35 BP 105/63 01/06/23 15:35 BMI result Body Mass Index 21.6 Const General: healthy appearing, no acute distress and well developed Nutritional Appearance: well nourished Orientation/consciousness: patient oriented x3 HEENT Head: Yes normal to inspection, Yes normocephalic and Yes atraumatic Face and sinus: Yes normal facial exam Mouth: Normal oral and palatal mucosa present Throat: Yes posterior oropharynx normal, Yes tonsils normal and Yes uvula midline Eyes General: appearance normal, both eyes and all related structures Neck Neck: Yes normal visual inspection, Yes full ROM and Yes trachea midline Thyroid: Thyroid normal Resp Effort & Inspection: normal respiratory effort, able to speak in complete sentences, no tracheal deviation and symmetric chest movement Auscultation: clear to auscultation bilaterally Cardio Rate: regular rate Heart sounds: S1 normal heart sound present and S2 normal heart sound present GI Inspection: Yes normal to inspection and No distended Palpation (GI): Soft to palpation, not firm, nontender and No hepatosplenomegaly present Auscultation: normal bowel sounds General: Yes no CVA tenderness Back/Spine/Pelvis Back: no CVA tenderness Skin General skin exam: elasticity normal, turgor normal and dry skin Neuro General: patient oriented x3 Psych Appearance: grossly normal Mental Status: mental status grossly normal Speech and movement: Normal speech and movement present Affect: normal affect Assessment & Plan Assessment & Plan (1) Chronic idiopathic constipation: Code(s): K59.04 - Chronic idiopathic constipation Plan: Continue Dulcolax 2 tablets every day. Patient was encouraged to increase fluid intake and activity to promote better bowel motility. (2) Gastroesophageal reflux disease: Code(s): K21.9 - Gastro-esophageal reflux disease without esophagitis Qualifiers: Esophagitis presence: with esophagitis Esophagitis bleeding: without hemorrhage Qualified Code(s): K21.00 - Gastro-esophageal reflux disease with esophagitis, without bleeding Plan: Continue Nexium twice a day. Patient can wean herself of of nortriptyline. Starting taking every other day and then twice a week then once weekly then DC (3) Dysphagia: Code(s): R13.10 - Dysphagia, unspecified Qualifiers: Dysphagia type: oropharyngeal phase Qualified Code(s): R13.12 - Dysphagia, oropharyngeal phase Plan: Patient reports occasional dysphagia. Patient states that she feels like increase stressed and anxiety can contribute to that. Patient was encouraged to decrease stress and workup hours. Patient should continue to avoid dietary triggers. Less coffee more water. Continue staying away from NSAIDs. I will see patient in 4 months. Will discuss going for upper endoscopy to re-evaluate. Patient is agreeable to plan and verbalizes understanding of instructions. She was given the opportunity to ask questions and all questions answered. Thank you for allowing me to participate in her care Medications: New bisacodyl (Dulcolax (bisacodyl)) 10 mg (2 x 5 mg) PO BEDTIME 180 tabs 4RF Discontinued prucalopride (Motegrity) Discontinued Reason: Doctor's Order 2 mg PO DAILY 90 tabs 2RF K59.04 - Chronic idiopathic constipation Coding Level of Care Code Est Pt Level 4 (05930) Diagnoses Chronic idiopathic constipation K59.04 Gastroesophageal reflux disease K21.00 Esophagitis presence: with esophagitis Esophagitis bleeding: without hemorrhage Dysphagia R13.12 Dysphagia type: oropharyngeal phase Time Spent (min) 40 Comment 25 minutes spent with patient and additional 15 minutes spent reviewing her records
[2023-01-06 15:35] VITALS: BP 105/63; PULSE 63; BMI 21.6
== END 2023-01-06 16:26 | disposition home or self-care (01) ==
PROVIDERS: PCP Internal Medicine; Visit Provider Nurse Practitioner Family
DX: K59.04 Chronic idiopathic constipation (principal); K21.00 Gastro-esophageal reflux disease with esophagitis, without bleeding; R13.12 Dysphagia, oropharyngeal phase
CPT/HCPCS: 99214

== ENCOUNTER → 2023-01-06 15:20 | Outpatient (BNVA) | payer BC, SELFPAY | PROVIDERS: PCP Internal Medicine; Visit Provider Nurse Practitioner Family ==

== ENCOUNTER → 2023-01-22 15:20 | Outpatient (BNVA) | payer BC, SELFPAY | PROVIDERS: PCP Internal Medicine; Visit Provider Nurse Practitioner Family ==

== ENCOUNTER 2023-03-03 15:32 | Outpatient (REF) | payer BC, SELFPAY ==
[2023-03-03 18:03] LABS: Appearance Urine Clear; Color Urine Yellow; Glucose Urine UA Negative (Negative); Leukocyte Esterase Urine Trace (Negative); Nitrite Urine Negative (Negative); PH 6.5 (5.0-9.0); UMIC TRIGGER UACC YES; Urine Blood Negative (Negative); Urine Ketones Negative (Negative); Urine Protein Negative (Neg-Trace)
[2023-03-03 18:10] LABS: Bacteria Urine None Seen (None Seen); Hyaline Casts Urine 0-2 /LPF (0-2); Squamous Epithelial Cell Urine 0-2 /HPF (0-2); WBC Urine 0-5 /HPF (0-5)
== END 2023-03-03 15:33 | disposition home or self-care (01) ==
LOC: HO.LAB 15:32
PROVIDERS: PCP Internal Medicine; Visit Provider Nurse Practitioner Family
DX: N39.0 Urinary tract infection, site not specified (principal)
CPT/HCPCS: 81001

== ENCOUNTER 2023-03-10 10:30 | Outpatient (AMB) | payer BC, SELFPAY ==
--- NOTE | 2023-03-10 10:27 | MHC.PC.OV ---
Vital Signs 03/10/23 10:27 Height 5 ft 8 in Intake Visit Reasons: low back pain, blood in urine Allergies kiwi Allergy (Severe, Verified 03/10/23 10:27) rash Penicillins [PENICILLINS] Allergy (Intermediate, Verified 03/10/23 10:27) SEVERE RASH Sulfa (Sulfonamide Antibiotics) [SULFA(SULFONAMIDE ANTIBIOTICS)] Allergy (Intermediate, Verified 03/10/23 10:27) RASH Medication List - Last Reconciled 03/10/23 by Kuldeep Marie MD ascorbate calcium (vitamin C) 500 mg PO DAILY bisacodyl (Dulcolax (bisacodyl)) 10 mg (2 x 5 mg) PO BEDTIME cholecalciferol (vitamin D3) 50 mcg PO DAILY esomeprazole magnesium (Nexium) 40 mg PO BID famotidine 40 mg PO BEDTIME ferrous sulfate (Feosol) 325 mg PO DAILY mecobalamin (vitamin B12) 1,000 mcg sublingual DAILY metronidazole (Flagyl) 375 mg PO BID 7 days nortriptyline 10 mg PO BEDTIME phenazopyridine 100 mg PO q8h 6 days Tobacco use date assessed: 09/09/22 Dental Screening Dental Screen Date: 03/10/23 Did you have a dental visit in the last 12 months?: Yes Did you have a dental problem in the last 6 months where you did not have access to dental care?: No Was dental information given to patient?: Patient has dentist HPI low back pain, blood in urine HPI Details low back pain and hematuria for a week; has nephrolithiasis PFSH Medical History Chronic idiopathic constipation Gastroesophageal reflux disease Angiomyolipoma of right kidney Brain lesion Toe pain Mass of uterus Surgical History History of esophagogastroduodenoscopy (EGD) History of colonoscopy History of bunionectomy of right great toe Hx of toe surgery Hx of tubal ligation History of delivery Family History Father Leukemia Arthritis, rheumatoid Mother No problems noted. 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 1. Little interest or pleasure in doing things: not at all 2. Feeling down, depressed, or hopeless: not at all 3. Trouble falling or staying asleep, or sleeping too much: not at all 4. Feeling tired or having little energy: not at all 5. Poor appetite or overeating: not at all 6. Feeling bad about yourself - or that you are a failure or have let yourself or your family down: not at all 7. Trouble concentrating on things, such as reading the newspaper or watching television: not at all 8. Moving or speaking so slowly that other people could have noticed. Or the opposite - being so fidgety or restless that you have been moving around a lot more than usual: not at all 9. Thoughts that you would be better off or of hurting yourself in some way: not at all Total score: 0 Depression Screening Interpretation: Negative Depression Screening Done: Yes Source: Developed by Drs. Emerson Garcia, Mojgan Cruz, Florentino Hall and colleagues, with an educational steph from [employer]. Thrive Questionnaire Date Thrive assessed: 03/10/23 I am a: Patient What is your living situation today?: I have a steady place to live Within the past 12 months, did the food you bought not last and you didn't have the money to get more?: Never true Within the past 12 months, did you worry whether your food would run out before you got money to buy more?: Never true Do you have trouble paying for medicines?: No Do you have trouble getting transportation to medical appointments?: No Do you have trouble paying your heating and electricity bill?: No Do you have trouble taking care of your child, family member or friend?: No Do you have trouble with day-to-day activities such as bathing, preparing meals, shopping, managing finances, etc.?: No Are you currently unemployed and looking for a job?: No Are you interested in more education?: No Please select the resources that you would like help with: None AUDIT C Alcohol Use Questionnaire (AUDIT-C) 1. How often do you have a drink containing alcohol?: Monthly or less 2. How many drinks containing alcohol do you have on a typical day when you are drinking?: 1 or 2 3. How often do you have six or more drinks on one occasion?: Never Total Score: 1 Score Reviewed/Action Taken: No ERIC-7 AMB Questionnaire ERIC-7 Date ERIC - 7 assessed: 03/10/23 Source: Developed by Drs. Emerson Garcia, Mojgan Cruz, Florentino Hall and colleagues, with an educational steph from [employer]. Review of Systems Const Denies chills, Denies headache(s) and Denies weight loss ENT Denies headache(s) Card Denies chest pain, Denies syncope, Denies irregular heart rhythm and Denies dyspnea Resp Denies chest congestion, Denies cough and Denies dyspnea GI Denies abdominal pain, Denies change in stool character, Denies nausea and Denies vomiting Musc Denies deformity and Denies joint swelling Neuro Denies syncope and Denies headache(s) Physical exam (Primary Care) Tobacco/Smoking Status: Tobacco use Status Tobacco use date assessed 09/09/22 03/10/23 10:30 Patient Tobacco Use Status Never used Tobacco 03/10/23 10:30 PHQ-9: PHQ-9 Score PHQ-9: Total score 0 03/10/23 10:31 Depression Screening Interpretation: Negative Thrive Assessment: Date of Thrive Assessment Date Thrive assessed 03/10/23 03/10/23 10:30 Telehealth Telehealth Location of provider rendering services: practice address Location of patient: address on file Patient Identification confirmed using: Name, : Yes Telehealth method: voice only Patient verbally consented to treatment: Yes Patient verbally consented to billing insurance company: Yes Patient informed of any privacy concerns related to visit: Yes Minutes spent on Phone/Video with Pt.: 15 (telephone) Assessment and Plan Assessment & Plan (1) Nephrolithiasis: Code(s): N20.0 - Calculus of kidney Plan: ct and rx Orders: Orders CT kidney stone Today N20.0 - Calculus of kidney Medications: New oxycodone Partial Fill upon patient request. 5 mg PO Q6H PRN 14 tabs 0RF pain Refilled metronidazole (Flagyl) 375 mg PO BID 7 days 14 caps 0RF Coding Level of Care Code Tele Est Pt Level 3 (84435) Diagnoses Nephrolithiasis N20.0 Additional Codes PHQ-9 - 96121 - PHQ-9 Billing: ([id number])
== END 2023-03-10 11:55 | disposition home or self-care (01) ==
LOC: HO.HMGH 10:30
PROVIDERS: PCP Internal Medicine; Visit Provider Internal Medicine
DX: N20.0 Calculus of kidney (principal)
CPT/HCPCS: 99442

== ENCOUNTER 2023-03-20 13:54 | Outpatient (REF) | payer BC, SELFPAY ==
--- NOTE | ~2023-03-20 | CT_ITS ---
EXAMINATION: CT KIDNEY STONE CLINICAL INFORMATION: Kidney stone COMPARISON: Previous renal ultrasound most recent October 2022 and MR of the kidneys December [address] of the abdomen and pelvis June 2018 TECHNIQUE: Axial images through the abdomen and pelvis without oral or IV contrast. Sagittal and coronal reconstructions on the technologist workstation were performed. This CT examination was performed using dose optimization techniques as appropriate, variously including the following: *Automated exposure control *Adjustment of mA and/or kV according to patient size (this includes techniques or standardized protocols for targeted exams where dose is matched to indication/reason for exam; i.e. extremities or head) *Use of iterative reconstruction technique DLP 3 7 2 mg/cm FINDINGS: The lung bases are clear. The liver and gallbladder are normal. The pancreas is normal. Spleen is normal. The adrenal glands are normal. There is a 4 mm fatty lesion in the upper pole of the right kidney suggestive of a benign angiomyolipoma. This is similar to previous exams. No renal stone is seen. No hydronephrosis, ureteral dilatation or ureteral stone is seen. Bladder is not optimally distended and difficult to evaluate. There is a 2 mm calcification in the base of the bladder axial image 64 5 series 6. This is similar to CT scan from June 2018. Small and large bowel are normal. The appendix is normal. The pancreas is normal. No ascites or adenopathy. Small right periumbilical hernia containing fat. Uterus and adnexa are unremarkable. No pelvic mass. Degenerative changes of the spine. CT/CT kidney stone IMPRESSION: No renal stone or hydronephrosis seen. Stable 4 mm fatty lesion in the upper pole of the right kidney probably representing a benign angiomyolipoma. 2 mm calcification in the base of the bladder. This is similar to previous CT scan from 2019. It is uncertain whether this represents a small bladder stone or focus of bladder wall calcification. Stable appearance over almost 4 year interval would favor bladder wall calcification.
== END 2023-03-20 13:55 | disposition home or self-care (01) ==
LOC: HO.CT 13:54
PROVIDERS: PCP Internal Medicine; Visit Provider Internal Medicine
DX: N20.0 Calculus of kidney (principal)
CPT/HCPCS: 74176

== ENCOUNTER 2023-04-07 14:57 | Outpatient (AMB) | payer BC, SELFPAY ==
--- NOTE | 2023-04-07 15:19 | MHC.OFFVIS ---
Intake Intake Visit Reasons: Cystoscopy Intake Note: Patient presents for Cystoscopy Urology Medications: none Blood Thinner: none Paint Stock Clerk Required: No Accompanied by: Self / Same As Patient Allergies kiwi Allergy (Severe, Verified 04/08/23 00:12) rash Penicillins [PENICILLINS] Allergy (Intermediate, Verified 04/08/23 00:12) SEVERE RASH Sulfa (Sulfonamide Antibiotics) [SULFA(SULFONAMIDE ANTIBIOTICS)] Allergy (Intermediate, Verified 04/08/23 00:12) RASH Medication List - Last Reconciled 04/08/23 by SAAD Christina ascorbate calcium (vitamin C) 500 mg PO DAILY bisacodyl (Dulcolax (bisacodyl)) 10 mg (2 x 5 mg) PO BEDTIME cholecalciferol (vitamin D3) 50 mcg PO DAILY esomeprazole magnesium (Nexium) 40 mg PO BID famotidine 40 mg PO BEDTIME ferrous sulfate (Feosol) 325 mg PO DAILY mecobalamin (vitamin B12) 1,000 mcg sublingual DAILY nortriptyline 10 mg PO BEDTIME HPI HPI Comments History of Present Illness Details Gina is a very pleasant 53 year old female patient of Dr. Marie. She has a past medical history of brain lesion, chronic idiopathic constipation, GERD, and a mass in her uterus that was removed December of 2020. She presents to the office today in office cystoscopy. Of note, patient patient has been experiencing lower urinary tract symptoms of urinary urgency, urinary frequency, dysuria, and ongoing bilateral flank pain over the last 1-2 months at which time multiple urine cultures have been obtained for further assessment evaluation and a CT of the abdomen and pelvis was performed. No renal stones or hydronephrosis was seen on CT. Possible 2 mm calcification in the base of the bladder was noted thus a cystoscopy was performed for further assessment evaluation. There was no bladder stone and or lesions noted within the bladder. However generalized erythema noted to the bladder wall. These findings were discussed with the patient today at length. She does report to be drinking increased amounts of coffee all throughout her day. She reports to not be drinking much water daily. In office urinalysis results reviewed with the patient today. [facility] Medical History Chronic idiopathic constipation Gastroesophageal reflux disease Angiomyolipoma of right kidney Brain lesion Toe pain Mass of uterus Surgical History History of esophagogastroduodenoscopy (EGD) History of colonoscopy History of bunionectomy of right great toe Hx of toe surgery Hx of tubal ligation History of delivery Family History Father Leukemia Arthritis, rheumatoid Mother No problems noted. 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 Cognitive needs: No Hearing needs: No Vision needs: No Review of Systems Const All systems reviewed & are unremarkable except as noted in HPI and below Eyes Reports no additional complaints ENT Reports no additional complaints Card Reports no additional complaints Resp Reports no additional complaints GI Reports as per HPI Reports as per HPI Neuro Reports as per HPI Endo Reports no additional complaints Physical Exam Const General: cooperative, healthy appearing, comfortable, no acute distress, well developed, alert and awake Nutritional Appearance: thin Orientation/consciousness: patient oriented x3 Limitations: no limitations HEENT Head: Yes normal to inspection, Yes normocephalic and Yes atraumatic Ears: hearing grossly normal bilaterally Eyes General: appearance normal, both eyes and all related structures Neck Neck: Yes normal visual inspection and Yes trachea midline Chest Chest palpation & inspection: normal inspection of the chest Resp Effort & Inspection: normal respiratory effort and able to speak in complete sentences Cardio Rate: regular rate GI Inspection: Yes normal to inspection General: Yes no CVA tenderness Back/Spine/Pelvis Back: no CVA tenderness Skin General skin exam: no rashes or lesions noted Neuro General: patient oriented x3 Extrem General: Yes normal to inspection Psych Appearance: grossly normal and well kempt Mental Status: mental status grossly normal Speech and movement: Normal speech and movement present and Clear speech present Affect: normal affect Attitude: cooperative Thought process: Normal thought process present Thought content: Normal thought content present Insight: Good insight present (Psych) Judgement: Good judgement present (Psych) Office Procedures Cystoscopy Consent Discussed risk and benefit or proposed procedure with the patient. Information consent for procedure given to the patient. Discussed technical aspects, risks, benefits and alternatives in full. Addressed all of the patient's questions and concerns regarding the procedure. The patient demonstrated knowledge and understanding. They wish to proceed with this procedure. Preparation The patient was prepped in the usual manner. A supercalender operator helper was present and in the room. Genitalia was prepped with betadine solution in a sterile manner. Lidocaine Jelly 2% was placed into the urethra and 16Fr flexible Olympus cystoscope was inserted into the meatus after adequate lubrication. Procedure Meatus- normal Urethra-normal Bladder examination with retroflexion of cystoscope Bladder Orifices- normal shape and position Trigone-normal Bladder Capacity-medium Trabeculations-minimal Cellule Formation- Diverticulum Formation- none noted Mucosal Erythema noted throughout the bladder Bladder Tumor- no suspicious bladder lesions noted. Patient tolerated procedure well [id number] DISPOSABLE SCOPE URO-G FLEXIBLE SCOPE Procedure code (CPT) selection complete Office Meds lidocaine HCl 2 % mucosal jelly in applicator Performing Provider: SAAD Christina Performing Location: [facility] Administered by: Rayna Smith RN on 04/07/23 15:30 Dose Route Admin Location Dispensed Lot Number Expiration Date [facility] Yarn [employer]rier 10 mL intra-urethral 10 mL nitrofurantoin monohydrate/macrocrystals 100 mg capsule Performing Provider: SAAD Christina Performing Location: [facility] Administered by: Rayna Smith RN on 04/07/23 15:30 Dose Route Admin Location Dispensed Lot Number Expiration Date [place] [employer] 100 mg PO 1 cap naproxen 500 mg tablet Performing Provider: SAAD Christina Performing Location: [facility] Administered by: Rayna Smith RN on 04/07/23 15:30 Dose Route Admin Location Dispensed Lot Number Expiration Date [place] [employer] 500 mg PO 1 tab Results AMB Urinalysis, Automated UA Leukoctes 0 Piter/uL Last Edit by Emperatriz Navas on 04/07/23 15:31 UA Nitrite Negative Last Edit by Emperatriz Navas on 04/07/23 15:31 UA Urobilinogen 0.2 mg/dL Last Edit by Emperatriz Navas on 04/07/23 15:31 UA Protein 0 mg/dL Last Edit by Emperatriz Navas on 04/07/23 15:31 UA pH 6.0 Last Edit by Emperatriz Navas on 04/07/23 15:31 UA Blood 25 Donny/uL Last Edit by Emperatriz Navas on 04/07/23 15:31 UA Specific [place] 1.010 Last Edit by Emperatriz Navas on 04/07/23 15:31 UA Ketone Negative Last Edit by Emperatriz Navas on 04/07/23 15:31 UA Bilirubin 0 mg/dL Last Edit by Emperatriz Navas on 04/07/23 15:31 UA Glucose 0 mg/dL Last Edit by Emperatriz Navas on 04/07/23 15:31 Results Reviewed Results Reviewed: Laboratory Last Values Urine pH (Auto) 6.0 04/07/23 15:21 Specific [place] (Auto) 1.010 04/07/23 15:21 Urine Protein (Auto) 0 mg/dL 04/07/23 15:21 Glucose (UA)(Auto) 0 mg/dL 04/07/23 15:21 Urine Ketones (Auto) Negative 04/07/23 15:21 Urine Blood (Auto) 25 Donny/uL 04/07/23 15:21 Urine Nitrite (Auto) Negative 04/07/23 15:21 Urine Bilirubin (Auto) 0 mg/dL 04/07/23 15:21 Urine Urobilinogen (Auto) 0.2 mg/dL 04/07/23 15:21 Leukocyte Esterase (Auto) 0 Piter/uL 04/07/23 15:21 Date of Service: 03/20/23 EXAMINATION: CT KIDNEY STONE FINDINGS: The lung bases are clear. The liver and gallbladder are normal. The pancreas is normal. Spleen is normal. The adrenal glands are normal. There is a 4 mm fatty lesion in the upper pole of the right kidney suggestive of a benign angiomyolipoma. This is similar to previous exams. No renal stone is seen. No hydronephrosis, ureteral dilatation or ureteral stone is seen. Bladder is not optimally distended and difficult to evaluate. There is a 2 mm calcification in the base of the bladder axial image 64 5 series 6. This is similar to CT scan from June 2018. Small and large bowel are normal. The appendix is normal. The pancreas is normal. No ascites or adenopathy. Small right periumbilical hernia containing fat. Uterus and adnexa are unremarkable. No pelvic mass. Degenerative changes of the spine. IMPRESSION: No renal stone or hydronephrosis seen. Stable 4 mm fatty lesion in the upper pole of the right kidney probably representing a benign angiomyolipoma. 2 mm calcification in the base of the bladder. This is similar to previous CT scan from 2019. It is uncertain whether this represents a small bladder stone or focus of bladder wall calcification. Stable appearance over almost 4 year interval would favor bladder wall calcification. Assessment & Plan Assessment & Plan (1) Complex renal cyst: Code(s): N28.1 - Cyst of kidney, acquired (2) Angiolipoma of right kidney: Code(s): D17.71 - Benign lipomatous neoplasm of kidney Plan In office urinalysis results reviewed with the patient today; as noted above. In office cystoscopy performed; as noted above Discussed bladder triggers/irritants at length; information provided. Discussed possible low-dose 5 mg of Cialis daily for bladder stability. Discussed, educated, and stressed the importance of drinking plenty of water daily. Patient with a history of angiolipoma has upcoming renal ultrasound in June with follow-up in July Discussed keeping scheduled follow-up appointment; or sooner with any issues, concerns, and or questions. Orders: Orders AMB Urinalysis Automated 04/07/23 Z13.9 - Encounter for screening, unspecified AMB Cystoscopy 04/07/23 N20.0 - Calculus of kidney Patient Instructions: The patient had an opportunity to ask questions regarding the treatment plan. All questions were answered. Physical exam, labs, and imaging were discussed and reviewed in detail. As well as risks, benefits, and discussion of treatment choices. No major barriers to understanding were identified. The patient expressed understanding and agreement with the above treatment plan. The patient was made aware they should contact our office by phone for worsening of their current condition, the appearance of new symptoms, or with any questions or concerns. Compliance is encouraged with any medications and follow up testing that is ordered. It is a privilege to be allowed the opportunity to participate in? your urological care.? Again, if you have any questions or concerns If you have any questions or concerns please do not hesitate to contact me. The office is [phone]. This note is constructed using voice recognition software. While every effort has been made to ensure accuracy lead pharmacy technician errors may have been included. Yours sincerely, ROBERT Christina- Coding Level of Care Code Est Pt Level 3 (10079) Diagnoses Complex renal cyst N28.1 Angiolipoma of right kidney D17.71 CPT Codes Cystoscopy - CPT: [id number] ([id number])
== END 2023-04-07 16:19 | disposition home or self-care (01) ==
PROVIDERS: PCP Internal Medicine; Visit Provider Nurse Practitioner Family
DX: N28.1 Cyst of kidney, acquired (principal); D17.71 Benign lipomatous neoplasm of kidney
CPT/HCPCS: 52000; 99213

== ENCOUNTER → 2023-04-07 14:57 | Outpatient (BNVA) | payer BC, SELFPAY | PROVIDERS: PCP Internal Medicine; Visit Provider Nurse Practitioner Family | DX: N28.1 Cyst of kidney, acquired (principal); D17.71 Benign lipomatous neoplasm of kidney | CPT/HCPCS: 52000; 81003 ==

== ENCOUNTER 2023-06-09 15:14 | Outpatient (AMB) | payer BC, SELFPAY ==
--- NOTE | 2023-06-09 15:15 | MHC.PC.OV ---
Vital Signs 06/09/23 15:16 Height 5 ft 8 in Weight 139 lb BMI 21.1 BP 112/80 Blood Pressure Location Lt brachial Position Sitting Pulse 85 Pulse Source Pulse Oximeter Pulse Oximetry (%) 98 Oxygen Delivery Method Room Air Intake Visit Reasons: back and leg pain Cooker Sulfate Required: No Oiler Bander: Not Required per policy Accompanied by: Self / Same As Patient Allergies kiwi Allergy (Severe, Verified 06/09/23 15:16) rash Penicillins [PENICILLINS] Allergy (Intermediate, Verified 06/09/23 15:16) SEVERE RASH Sulfa (Sulfonamide Antibiotics) [SULFA(SULFONAMIDE ANTIBIOTICS)] Allergy (Intermediate, Verified 06/09/23 15:16) RASH Tobacco use date assessed: 06/09/23 Dental Screening Dental Screen Date: 06/09/23 Did you have a dental visit in the last 12 months?: Yes Did you have a dental problem in the last 6 months where you did not have access to dental care?: No Was dental information given to patient?: Patient has dentist HPI back and leg pain HPI Details 53-year-old female presents to the office for a sick visit. Patient is complaining of right lower back pain. Symptoms started 2 weeks ago. Patient does work 80 hours a week at the local [employer]. She is complaining of pain in the front part of her thigh and to toes are tingling. Able to walk without assistance. No fall or injury prior to the onset of symptoms. [facility] Medical History Chronic idiopathic constipation Gastroesophageal reflux disease Angiomyolipoma of right kidney Brain lesion Toe pain Mass of uterus Surgical History History of esophagogastroduodenoscopy (EGD) History of colonoscopy History of bunionectomy of right great toe Hx of toe surgery Hx of tubal ligation History of delivery Family History Father Leukemia Arthritis, rheumatoid Mother No problems noted. 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 1. Little interest or pleasure in doing things: not at all 2. Feeling down, depressed, or hopeless: not at all 3. Trouble falling or staying asleep, or sleeping too much: not at all 4. Feeling tired or having little energy: not at all 5. Poor appetite or overeating: not at all 6. Feeling bad about yourself - or that you are a failure or have let yourself or your family down: not at all 7. Trouble concentrating on things, such as reading the newspaper or watching television: not at all 8. Moving or speaking so slowly that other people could have noticed. Or the opposite - being so fidgety or restless that you have been moving around a lot more than usual: not at all 9. Thoughts that you would be better off or of hurting yourself in some way: not at all Total score: 0 Depression Screening Interpretation: Negative Depression Screening Done: Yes Source: Developed by Drs. Emerson Garcia, Mojgan Cruz, Florentino Hall and colleagues, with an educational steph from [employer]. Thrive Questionnaire Date Thrive assessed: 06/09/23 I am a: Patient What is your living situation today?: I have a steady place to live Within the past 12 months, did the food you bought not last and you didn't have the money to get more?: Never true Within the past 12 months, did you worry whether your food would run out before you got money to buy more?: Never true Do you have trouble paying for medicines?: No Do you have trouble getting transportation to medical appointments?: No Do you have trouble paying your heating and electricity bill?: No Do you have trouble taking care of your child, family member or friend?: No Do you have trouble with day-to-day activities such as bathing, preparing meals, shopping, managing finances, etc.?: No Are you currently unemployed and looking for a job?: No Are you interested in more education?: No Please select the resources that you would like help with: None THRIVE Score: 0 AUDIT C Alcohol Use Questionnaire (AUDIT-C) 1. How often do you have a drink containing alcohol?: Monthly or less 2. How many drinks containing alcohol do you have on a typical day when you are drinking?: 1 or 2 3. How often do you have six or more drinks on one occasion?: Never Total Score: 1 Score Reviewed/Action Taken: No ERIC-7 AMB Questionnaire ERIC-7 Date ERIC - 7 assessed: 06/09/23 Feeling nervous, anxious, or on edge: 0 = Not at all Not being able to stop or control worryin = Not at all Worrying too much about different things: 0 = Not at all Trouble relaxin = Not at all Being so restless that it is hard to sit still: 0 = Not at all Becoming easily annoyed or irritable: 0 = Not at all Feeling afraid as if something awful might happen: 0 = Not at all Total ERIC-7 score (0-4 normal; 5-9 mild; 10-14 moderate; 15-21 severe): 0 Source: Developed by Drs. Emerson Garcia, Mojgan Cruz, Florentino Hall and colleagues, with an educational steph from [employer]. Physical exam (Primary Care) Vital Signs: Last Vital Signs Pulse 85 06/09/23 15:16 BP 112/80 06/09/23 15:16 Pulse Ox 98 06/09/23 15:16 Oxygen Delivery Method Room Air 06/09/23 15:16 BMI result Body Mass Index 21.1 Tobacco/Smoking Status: Tobacco use Status Tobacco use date assessed 06/09/23 06/09/23 15:21 Patient Tobacco Use Status Never used Tobacco 06/09/23 15:21 PHQ-9: PHQ-9 Score PHQ-9: Total score 0 06/09/23 15:21 Depression Screening Interpretation: Negative Thrive Assessment: Date of Thrive Assessment Date Thrive assessed 06/09/23 06/09/23 15:21 Const General: cooperative and healthy appearing Nutritional Appearance: well nourished Orientation/consciousness: patient oriented x3 Limitations: no limitations HENMT Head: Yes normal to inspection Eyes General: appearance normal, both eyes and all related structures Neck Neck: Yes normal visual inspection Resp Effort & Inspection: normal respiratory effort Back/Spine/Pelvis Other: Spine: No tenderness. No paraspinal spasm. Neuro General: patient oriented x3 Assessment and Plan Assessment & Plan (1) Lower thoracic back pain: Code(s): M54.6 - Pain in thoracic spine Plan: Nonsteroidals and muscle relaxants prescribed. Physical therapy ordered. If symptoms do not improve to follow-up here. Orders: Orders PT Evaluation and Treatment Today M54.6 - Pain in thoracic spine Medications: New cyclobenzaprine 10 mg PO BEDTIME 14 tabs 0RF meloxicam 15 mg PO DAILY 14 tabs 0RF Coding Level of Care Code Est Pt Level 3 (79369) Diagnoses Lower thoracic back pain M54.6 Additional Codes PHQ-9 - 68812 - PHQ-9 Billing: ([id number])
[2023-06-09 15:16] VITALS: BP 112/80; PULSE 85; O2SAT 98; BMI 21.1
== END 2023-06-09 16:11 | disposition home or self-care (01) ==
PROVIDERS: PCP Internal Medicine; Visit Provider Internal Medicine
DX: M54.6 Pain in thoracic spine (principal)
CPT/HCPCS: 99213

== ENCOUNTER 2023-06-16 15:32 | Outpatient (REF) | payer BC, SELFPAY ==
--- NOTE | ~2023-06-16 | US_ITS ---
EXAMINATION: US RETROPERITONEAL COMPLETE (RENAL) CLINICAL INFORMATION: Calculus of kidney. COMPARISON: CT kidney stone 03/20/2023. MRI abdomen 12/11/2022. Renal ultrasound 10/22/2022 and 09/12/2022. TECHNIQUE: Real-time imaging of the kidneys and bladder. FINDINGS: RIGHT KIDNEY: 9.8 x 4.7 x 4.4 cm (SAG x AP x TRV). The kidney is normal in size, contour, and echogenicity. Renal cortical thickness is normal. Stable 5 mm echogenic upper pole lesion, most suggestive of angiomyolipoma. Also noted is a 2 mm nonobstructing mid pole calculus. There is no hydronephrosis of the right kidney. LEFT KIDNEY: 10.4 x 5.3 x 5.1 cm (SAG x AP x TRV). The kidney is normal in size, contour, and echogenicity. Renal cortical thickness is normal. No calculi or focal parenchymal lesions. No hydronephrosis. BLADDER: Well distended and normal. Bilateral ureteral jets are demonstrated. Prevoid bladder volume is 150 mL. Postvoid bladder volume is 16.7 mL. US/US retroperitoneal comp IMPRESSION: 1. 2 mm nonobstructing right renal calculus. No left-sided renal calculi. No hydronephrosis of either kidney. 2. Stable 5 mm echogenic lesion of the right kidney, most suggestive of angiomyolipoma.
== END 2023-06-16 15:33 | disposition home or self-care (01) ==
LOC: HO.US 15:32
PROVIDERS: PCP Internal Medicine; Visit Provider Nurse Practitioner Family
DX: N20.0 Calculus of kidney (principal); D17.71 Benign lipomatous neoplasm of kidney; N39.0 Urinary tract infection, site not specified
CPT/HCPCS: 76770

== ENCOUNTER 2023-06-23 15:36 | Outpatient (AMB) | payer BC, SELFPAY ==
--- NOTE | 2023-06-23 15:43 | A.OFFVIS_ITS ---
Intake Intake Visit Reasons: 6m/US(set) Intake Note: Patient presents today for follow up visit for renal cyst and angiolipoma right kidney Urology Medications: Cialis (patient stated that she's not taking) Blood thinner: none Emergency Veterinary Technician Required: No Accompanied by: Self / Same As Patient Allergies kiwi Allergy (Severe, Verified 06/23/23 19:56) rash Penicillins [PENICILLINS] Allergy (Intermediate, Verified 06/23/23 19:56) SEVERE RASH Sulfa (Sulfonamide Antibiotics) [SULFA(SULFONAMIDE ANTIBIOTICS)] Allergy (Intermediate, Verified 06/23/23 19:56) RASH Medication List - Last Reconciled 06/23/23 by ROBERT Christina- ascorbate calcium (vitamin C) 500 mg PO DAILY bisacodyl (Dulcolax (bisacodyl)) 10 mg (2 x 5 mg) PO BEDTIME cholecalciferol (vitamin D3) 50 mcg PO DAILY cyclobenzaprine 10 mg PO BEDTIME esomeprazole magnesium (Nexium) 40 mg PO BID ferrous sulfate (Feosol) 325 mg PO DAILY mecobalamin (vitamin B12) 1,000 mcg sublingual DAILY meloxicam 15 mg PO DAILY sumatriptan succinate 100 mg PO DIRECTED HPI HPI Comments History of Present Illness Details Gina is a very pleasant 53 year old female patient of Dr. Marie. She has a past medical history of brain lesion, chronic idiopathic constipation, GERD, and a mass in her uterus that was removed December of 2020. She presents to the office today for follow-up of her lower urinary tract symptoms and angiolipoma. In discussion with the patient today she discusses her mom who has recently suffered a femur fracture. She denies any bothersome urinary issues or concerns. However, she does report ongoing issues with her sciatica and has been following up with her PCP regarding this issue. Recent renal imaging results reviewed with the patient today. Right kidney with stable 5 mm echogenic upper pole lesion, most suggestive of angiolipoma. Also noted a 2 mm nonobstructing mid pole calculus. There is no hydronephrosis. Left kidney with no calculi, lesions, and or hydronephrosis. The bladder is well distended and normal. Bilateral ureteral jets are demonstrated. Pre void bladder volume is approximately 150 mL. Postvoid bladder volume is approximately 15 mL. Previous workup has included an MRI to further assess renal lesion which was also suggestive of angiolipoma. 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 In office urinalysis results reviewed with the patient today. Discussed at length potential causes of nephrolithiasis. She otherwise denies any other issues or concerns at this time. [facility] Medical History Chronic idiopathic constipation Gastroesophageal reflux disease Angiomyolipoma of right kidney Brain lesion Toe pain Mass of uterus Surgical History History of esophagogastroduodenoscopy (EGD) History of colonoscopy History of bunionectomy of right great toe Hx of toe surgery Hx of tubal ligation History of delivery Family History Father Leukemia Arthritis, rheumatoid Mother No problems noted. 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 Cognitive needs: No Hearing needs: No Vision needs: No Review of Systems Const All systems reviewed & are unremarkable except as noted in HPI and below Eyes Reports no additional complaints ENT Reports no additional complaints Card Reports no additional complaints Resp Reports no additional complaints GI Reports as per HPI Reports as per HPI Neuro Reports as per HPI Endo Reports no additional complaints Physical Exam Const General: cooperative, healthy appearing, comfortable, no acute distress, well developed, alert and awake Nutritional Appearance: thin Orientation/consciousness: patient oriented x3 Limitations: no limitations HEENT Head: Yes normal to inspection, Yes normocephalic and Yes atraumatic Ears: hearing grossly normal bilaterally Eyes General: appearance normal, both eyes and all related structures Neck Neck: Yes normal visual inspection and Yes trachea midline Chest Chest palpation & inspection: normal inspection of the chest Resp Effort & Inspection: normal respiratory effort and able to speak in complete sentences Cardio Rate: regular rate GI Inspection: Yes normal to inspection General: Yes no CVA tenderness Back/Spine/Pelvis Back: no CVA tenderness Skin General skin exam: no rashes or lesions noted Neuro General: patient oriented x3 Extrem General: Yes normal to inspection Psych Appearance: grossly normal and well kempt Mental Status: mental status grossly normal Speech and movement: Normal speech and movement present and Clear speech present Affect: normal affect Attitude: cooperative Thought process: Normal thought process present Thought content: Normal thought content present Insight: Good insight present (Psych) Judgement: Good judgement present (Psych) Results AMB Urinalysis, Automated UA Leukoctes 0 Piter/uL Last Edit by MARIANGEL Paige on 06/23/23 16:30 UA Nitrite Negative Last Edit by MARIANGEL Paige on 06/23/23 16:30 UA Urobilinogen 0.2 mg/dL Last Edit by MARIANGEL Paige on 06/23/23 16:3 0 UA Protein 0 mg/dL Last Edit by MARIANGEL Paige on 06/23/23 16:30 UA pH 6.0 Last Edit by MARIANGEL Paige on 06/23/23 16:30 UA Blood 10 Donny/uL Last Edit by MARIANGEL Paige on 06/23/23 16:30 UA Specific [place] 1.015 Last Edit by MARIANGEL Paige on 06/23/23 16: 30 UA Ketone Negative Last Edit by MARIANGEL Paige on 06/23/23 16:30 UA Bilirubin 0 mg/dL Last Edit by MARIANGEL Paige on 06/23/23 16:30 UA Glucose 0 mg/dL Last Edit by MARIANGEL Paige on 06/23/23 16:30 Results Reviewed Results Reviewed: Laboratory Last Values Urine pH (Auto) 6.0 06/23/23 15:45 Specific [place] (Auto) 1.015 06/23/23 15:45 Urine Protein (Auto) 0 mg/dL 06/23/23 15:45 Glucose (UA)(Auto) 0 mg/dL 06/23/23 15:45 Urine Ketones (Auto) Negative 06/23/23 15:45 Urine Blood (Auto) 10 Donny/uL 06/23/23 15:45 Urine Nitrite (Auto) Negative 06/23/23 15:45 Urine Bilirubin (Auto) 0 mg/dL 06/23/23 15:45 Urine Urobilinogen (Auto) 0.2 mg/dL 06/23/23 15:45 Leukocyte Esterase (Auto) 0 Piter/uL 06/23/23 15:45 Date of Service: 06/16/23 EXAMINATION: US RETROPERITONEAL COMPLETE (RENAL) FINDINGS: RIGHT KIDNEY: 9.8 x 4.7 x 4.4 cm (SAG x AP x TRV). The kidney is normal in size, contour, and echogenicity. Renal cortical thickness is normal. Stable 5 mm echogenic upper pole lesion, most suggestive of angiomyolipoma. Also noted is a 2 mm nonobstructing mid pole calculus. There is no hydronephrosis of the right kidney. LEFT KIDNEY: 10.4 x 5.3 x 5.1 cm (SAG x AP x TRV). The kidney is normal in size, contour, and echogenicity. Renal cortical thickness is normal. No calculi or focal parenchymal lesions. No hydronephrosis. BLADDER: Well distended and normal. Bilateral ureteral jets are demonstrated. Prevoid bladder volume is 150 mL. Postvoid bladder volume is 16.7 mL. IMPRESSION: 1. 2 mm nonobstructing right renal calculus. No left-sided renal calculi. No hydronephrosis of either kidney. 2. Stable 5 mm echogenic lesion of the right kidney, most suggestive of angiomyolipoma. 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 Recent renal imaging results reviewed with the patient today; as noted above; stable angiolipoma Discussed at length potential causes of nephrolithiasis. Discussed, educated, and stressed the importance of drinking plenty of water daily. Discussed adding 1 oz of lemon juice to water daily. Discussed at length bladder triggers/irritants. Patient currently denies any bothersome urinary issues or concerns. She reports to be happy with current voiding parameters. Will obtain renal ultrasound in 6 months. Follow-up in 6 months with imaging to be completed prior; or sooner with any issues, concerns, and or questions. Orders: Orders US renal BI 6 Months D17.9 - Benign lipomatous neoplasm, unspecified, N20.0 - Calculus of kidney AMB Urinalysis Automated Today Z13.9 - Encounter for screening, unspecified Medications: Discontinued famotidine Discontinued Reason: Doctor's Order 40 mg PO BEDTIME 90 tabs 3RF nortriptyline Discontinued Reason: Doctor's Order 10 mg PO BEDTIME 90 caps 0RF Patient Instructions: The patient had an opportunity to ask questions regarding the treatment plan. All questions were answered. Physical exam, labs, and imaging were discussed and reviewed in detail. As well as risks, benefits, and discussion of treatment choices. No major barriers to understanding were identified. The patient expressed understanding and agreement with the above treatment plan. The patient was made aware they should contact our office by phone for worsening of their current condition, the appearance of new symptoms, or with any questions or concerns. Compliance is encouraged with any medications and follow up testing that is ordered. It is a privilege to be allowed the opportunity to participate in? your urological care.? Again, if you have any questions or co ncerns If you have any questions or concerns please do not hesitate to contact me. The office is [phone]. This note is constructed using voice recognition software. While every effort has been made to ensure accuracy materials planner/production planner errors may have been included. Yours sincerely, SAAD Christina Coding Level of Care Code Est Pt Level 3 (07659) Diagnoses Angiolipoma D17.9 Nephrolithiasis N20.0
== END 2023-06-23 16:26 | disposition home or self-care (01) ==
PROVIDERS: PCP Internal Medicine; Visit Provider Nurse Practitioner Family
DX: D17.9 Benign lipomatous neoplasm, unspecified (principal); N20.0 Calculus of kidney; Z13.9 Encounter for screening, unspecified
CPT/HCPCS: 99213

== ENCOUNTER → 2023-06-23 15:36 | Outpatient (BNVA) | payer BC, SELFPAY | PROVIDERS: PCP Internal Medicine; Visit Provider Nurse Practitioner Family | DX: D17.71 Benign lipomatous neoplasm of kidney (principal); N20.0 Calculus of kidney | CPT/HCPCS: 81003 ==

== ENCOUNTER 2023-08-24 14:17 | Outpatient (AMB) | payer BC, SELFPAY ==
[2023-08-24 14:19] VITALS: BP 92/64; PULSE 62; O2SAT 98; BMI 21.7
--- NOTE | 2023-08-24 14:19 | A.OFFPC_ITS ---
Vital Signs 08/24/23 14:19 Height 5 ft 8 in Weight 143 lb BMI 21.7 BP 92/64 Blood Pressure Location Lt brachial Position Sitting Pulse 62 Pulse Source Pulse Oximeter Pulse Oximetry (%) 98 Oxygen Delivery Method Room Air Intake Visit Reasons: follow up Dredge Pumper Required: No Allergies kiwi Allergy (Severe, Verified 08/24/23 14:19) rash Penicillins [PENICILLINS] Allergy (Intermediate, Verified 08/24/23 14:19) SEVERE RASH Sulfa (Sulfonamide Antibiotics) [SULFA(SULFONAMIDE ANTIBIOTICS)] Allergy (Intermediate, Verified 08/24/23 14:19) RASH Medication List - Last Reconciled 08/25/23 by Kuldeep Marie MD ascorbate calcium (vitamin C) 500 mg PO DAILY bisacodyl (Dulcolax (bisacodyl)) 10 mg (2 x 5 mg) PO BEDTIME cholecalciferol (vitamin D3) 50 mcg PO DAILY esomeprazole magnesium (Nexium) 40 mg PO BID ferrous sulfate (Feosol) 325 mg PO DAILY mecobalamin (vitamin B12) 1,000 mcg sublingual DAILY sumatriptan succinate 100 mg PO DIRECTED Tobacco use date assessed: 08/24/23 Dental Screening Dental Screen Date: 06/09/23 HPI follow up HPI Details has neuropathy in legs possible lumbarelated; seeing neurology; to start elavil [facility] Medical History Chronic idiopathic constipation Gastroesophageal reflux disease Angiomyolipoma of right kidney Brain lesion Toe pain Mass of uterus Surgical History History of esophagogastroduodenoscopy (EGD) History of colonoscopy History of bunionectomy of right great toe Hx of toe surgery Hx of tubal ligation History of delivery Family History Father Leukemia Arthritis, rheumatoid Mother No problems noted. 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 Cognitive needs: No Hearing needs: No Vision needs: No Questionnaire Thrive Questionnaire Date Thrive assessed: 08/24/23 I am a: Patient What is your living situation today?: I have a steady place to live Within the past 12 months, did the food you bought not last and you didn't have the money to get more?: Never true Within the past 12 months, did you worry whether your food would run out before you got money to buy more?: Never true Do you have trouble paying for medicines?: No Do you have trouble getting transportation to medical appointments?: No Do you have trouble paying your heating and electricity bill?: No Do you have trouble taking care of your child, family member or friend?: No Do you have trouble with day-to-day activities such as bathing, preparing meals, shopping, managing finances, etc.?: No Are you currently unemployed and looking for a job?: No Are you interested in more education?: No Please select the resources that you would like help with: None Currently or been in a relationship where the following occur: no concerns reported THRIVE Score: 0 AUDIT C Alcohol Use Questionnaire (AUDIT-C) 1. How often do you have a drink containing alcohol?: Monthly or less 2. How many drinks containing alcohol do you have on a typical day when you are drinking?: 1 or 2 3. How often do you have six or more drinks on one occasion?: Never Total Score: 1 Score Reviewed/Action Taken: No ERIC-7 AMB Questionnaire ERIC-7 Date ERIC - 7 assessed: 06/09/23 Source: Developed by Drs. Emerson Garcia, Mojgan Cruz, Florentino Hall and colleagues, with an educational steph from [employer]. Review of Systems Const Denies chills, Denies headache(s) and Denies weight loss ENT Denies headache(s) Card Denies chest pain, Denies syncope, Denies irregular heart rhythm and Denies dyspnea Resp Denies chest congestion, Denies cough and Denies dyspnea GI Denies abdominal pain, Denies change in stool character, Denies nausea and Denies vomiting Musc Denies deformity and Denies joint swelling Neuro Denies syncope and Denies headache(s) Physical exam (Primary Care) Vital Signs: Last Vital Signs Pulse 62 08/24/23 14:19 BP 92/64 08/24/23 14:19 Pulse Ox 98 04/15/24 14:19 Oxygen Delivery Method Room Air 08/24/23 14:19 BMI result Body Mass Index 21.7 Tobacco/Smoking Status: Tobacco use Status Tobacco use date assessed 08/24/23 08/24/23 14:22 Patient Tobacco Use Status Never used Tobacco 08/24/23 14:22 Thrive Assessment: Date of Thrive Assessment Date Thrive assessed 08/24/23 08/24/23 14:22 Currently or been in a relationship where the following occur: no concerns reported Const General: cooperative, comfortable, no acute distress and alert Neck Neck: Yes no lymphadenopathy Thyroid: Thyroid normal Resp Effort & Inspection: normal respiratory effort Auscultation: clear to auscultation bilaterally Percussion: percussion normal Cardio Jugular venous distension: no JVD Palpation: normal PMI Rate: regular rate Rhythm: regular rhythm Heart sounds: S1 normal heart sound present and S2 normal heart sound present GI Inspection: Yes normal to inspection Palpation (GI): No hepatosplenomegaly present Skin General skin exam: no rashes or lesions noted Extrem General: Yes no clubbing, cyanosis or edema Assessment and Plan Assessment & Plan (1) Neuropathy of both feet: Code(s): G57.93 - Unspecified mononeuropathy of bilateral lower limbs Plan: per neuro Orders: Orders XR lumbar spine 2-3V 08/24/23 M54.9 - Dorsalgia, unspecified PT Evaluation and Treatment 08/24/23 M54.9 - Dorsalgia, unspecified Coding Level of Care Code Est Pt Level 3 (77456) Diagnoses Neuropathy of both feet G57.93
== END 2023-08-24 14:48 | disposition home or self-care (01) ==
PROVIDERS: PCP Internal Medicine; Visit Provider Internal Medicine
DX: G57.93 Unspecified mononeuropathy of bilateral lower limbs (principal)
CPT/HCPCS: 99213

== ENCOUNTER 2023-08-24 14:50 | Outpatient (REF) | payer BC, SELFPAY ==
--- NOTE | ~2023-08-24 | XR_ITS ---
EXAMINATION: XR LUMBOSACRAL SPINE CLINICAL INFORMATION: Patient states pain in low back and legs. Patient also states she has neuropathy in legs. COMPARISON: None available. TECHNIQUE: Three views of the lumbosacral spine. FINDINGS: Degenerative changes in the imaged lower thoracic spine. Facet arthritis in the lower lumbar spine. Straightening of the normal lumbar lordosis. [id number]-[id number] multilevel lumbar spondylosis with loss of disc space height at L3-L4, L4-L5 and L5-S1. XR/XR lumbar spine 2-3V IMPRESSION: [id number] multilevel lumbar spondylosis with loss of disc space height at L3-L4, L4-L5 and L5-S1.
== END 2023-08-24 14:51 | disposition home or self-care (01) ==
LOC: HO.XRAY 14:50
PROVIDERS: PCP Internal Medicine; Visit Provider Internal Medicine
DX: M54.9 Dorsalgia, unspecified (principal)
CPT/HCPCS: 72100

== ENCOUNTER 2023-09-08 15:22 | Outpatient (AMB) | payer BC, SELFPAY ==
--- NOTE | 2023-09-08 15:30 | A.OFFVIS_ITS ---
Vital Signs 09/08/23 15:31 Height 5 ft 8 in Weight 145 lb 8.081 oz BMI 22.1 BP 121/64 Blood Pressure Location Lt brachial Position Sitting Pulse 82 Intake Visit Reasons: month follow up GERD, IBS, CIC, Intake Note: Gina presents in the office as a follow up for GERD, IBS and CIC. CC: Has had health issues going on - she states she still has the issues with her difficulty swallowing. She knows that you wanted to run more tests. 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 Patient was encouraged to increase fluid intake and activity to promote better bowel motility. Gastroesophageal reflux disease Continue Nexium twice a day. Patient can wean herself of of nortriptyline. Starting taking every other day and then twice a week then once weekly then DC Dysphagia Patient reports occasional dysphagia. Patient states that she feels like increase stressed and anxiety can contribute to that. Patient was encouraged to decrease stress and workup hours. Patient should continue to avoid dietary triggers. Less coffee more water. Continue staying away from NSAIDs. I will see patient in 4 months. Will discuss going for upper endoscopy to re-evaluate. Patient is agreeable to plan and verbalizes understanding of instructions. She was given the opportunity to ask questions and all questions answered. ? Thank you for allowing me to participate in her care Plan Medications New bisacodyl (Dulcolax (bisacodyl)) 10 mg (2 x 5 mg) PO BEDTIME 180 tabs 4RF Discontinued prucalopride (Motegrity) Discontinued Reason: Doctor's Order 2 mg PO DAILY 90 tabs 2RF K59.04 - Chronic idiopathic constipation TODAY'S VISIT: Patient is here today for follow-up. Patient has missed couple of her appointments due to being busy and had other health issues that she needed to take care of 1st. Patient continues to have occasional dysphagia. Patient feels like she has to chew and swallow couple times before it goes down. Patient is unsure if she had motility study done. Patient does not remember. We did send her to [facility] year and a half ago and arranged appointment. Patient states that she was dealing with multiple appointments and her mom getting sick and she is not sure if she actually went for the appointment or not. Patient will check in the meantime we will refer her to [facility] in [place] or to [facility]. Patient denies any nausea or vomiting. Reports that she is moving her bowels well. Currently patient is taking Dulcolax and is moving her bowels better. Patient is taking omeprazole every morning before breakfast. Patient is still going under lot of stress continues to drink coffee, however she did decrease the amount of coffee intake daily. Patient denies any dyspepsia. Does not really feel like she has acid reflux. Denies any abdominal pain or discomfort. [facility] Medical History Chronic idiopathic constipation Gastroesophageal reflux disease Angiomyolipoma of right kidney Brain lesion Toe pain Mass of uterus Surgical History History of esophagogastroduodenoscopy (EGD) History of colonoscopy History of bunionectomy of right great toe Hx of toe surgery Hx of tubal ligation History of delivery Family History Father Leukemia Arthritis, rheumatoid Mother No problems noted. 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 Cognitive needs: No Hearing needs: No Vision needs: No Review of Systems Const Denies weight gain and Denies weight loss ENT Reports no additional complaints, Reports dysphagia and Denies odynophagia Card Reports no additional complaints Resp Reports no additional complaints GI Denies abdominal pain, Denies belching, Denies melena, Denies bloating, Denies change in bowel habits, Reports dysphagia, Denies excessive flatus, Denies dyspepsia, Denies heartburn, Denies diarrhea, Denies loose stools, Denies nausea, Denies odynophagia and Denies vomiting Reports no additional complaints Musc Reports no additional complaints Neuro Reports no additional complaints Psych Reports no additional complaints Endo Reports no additional complaints Physical Exam Vital Signs: Last Vital Signs Pulse 82 09/08/23 15:31 BP 121/64 09/08/23 15:31 BMI result Body Mass Index 22.1 Const General: healthy appearing, no acute distress and well developed Nutritional Appearance: well nourished Orientation/consciousness: patient oriented x3 Resp Effort & Inspection: normal respiratory effort, able to speak in complete sentences, no tracheal deviation and symmetric chest movement Auscultation: clear to auscultation bilaterally Cardio Rate: regular rate Heart sounds: S1 normal heart sound present and S2 normal heart sound present GI Inspection: Yes normal to inspection and No distended Palpation (GI): Soft to palpation, not firm, nontender and No hepatosplenomegaly present Auscultation: normal bowel sounds General: Yes no CVA tenderness Back/Spine/Pelvis Back: no CVA tenderness Skin General skin exam: elasticity normal, turgor normal and dry skin Neuro General: patient oriented x3 Psych Appearance: grossly normal Mental Status: mental status grossly normal Assessment & Plan Assessment & Plan (1) Dysphagia: Code(s): R13.10 - Dysphagia, unspecified Category: Medical Qualifiers: Dysphagia type: oropharyngeal phase Qualified Code(s): R13.12 - Dysph agia, oropharyngeal phase (2) Gastroesophageal reflux disease: Code(s): K21.9 - Gastro-esophageal reflux disease without esophagitis Category: Medical Qualifiers: Esophagitis presence: with esophagitis Esophagitis bleeding: without hemorrhage Qualified Code(s): K21.00 - Gastro-esophageal reflux disease with esophagitis, without bleeding (3) Chronic idiopathic constipation: Code(s): K59.04 - Chronic idiopathic constipation Category: Medical Plan Addressed with patient the importance of avoiding dietary triggers as well as trying to relieve stress. Continue current PPI dose. [facility] as patient is not sure if she had mom 3 done or not, if patient will find reports she will drop it off at the office. We will send patient for upper endoscopy for stretching of the esophagus. Pending report from motility testing we might send patient for upper GI series with barium swallow. She will call our office if she will have any GI concerning symptoms. I will see her after the procedure, sooner on as needed basis. Patient is agreeable to this plan and verbalizes understanding of instructions. She was given the opportunity to ask questions and all questions answered. Thank you for allowing me to participate in her care Orders: Referrals Gastroenterology Referral R13.12 - Dysphagia, oropharyngeal phase Coding Level of Care Code Est Pt Level 4 (00299) Diagnoses Oropharyngeal dysphagia R13.12 Dysphagia type: oropharyngeal phase Gastroesophageal reflux disease with esophagitis without hemorrhage K21.00 Esophagitis presence: with esophagitis Esophagitis bleeding: without hemorrhage Chronic idiopathic constipation K59.04 Time Spent (min) 35 Comment 20 minutes spent with patient and additional 15 minutes spent reviewing her records
[2023-09-08 15:31] VITALS: BP 121/64; PULSE 82; BMI 22.1
== END 2023-09-08 16:21 | disposition home or self-care (01) ==
PROVIDERS: PCP Internal Medicine; Visit Provider Nurse Practitioner Family
DX: R13.12 Dysphagia, oropharyngeal phase (principal); K21.00 Gastro-esophageal reflux disease with esophagitis, without bleeding; K59.04 Chronic idiopathic constipation
CPT/HCPCS: 99214

== ENCOUNTER → 2023-09-08 15:22 | Outpatient (BNVA) | payer BC, SELFPAY | PROVIDERS: PCP Internal Medicine; Visit Provider Nurse Practitioner Family ==

== ENCOUNTER 2023-09-29 15:25 | Outpatient (REF) | payer BC, SELFPAY ==
[2023-09-29 16:46] LABS: Appearance Urine Clear; Color Urine Yellow; Glucose Urine UA Negative (Negative); Leukocyte Esterase Urine Trace (Negative); Nitrite Urine Negative (Negative); Specific Gravity - Urine <= 1.005 (1.005-1.025); UMIC TRIGGER UA YES; Urine Blood Negative (Negative); Urine Ketones Negative (Negative); Urine Protein Negative (Neg-Trace)
[2023-09-29 17:02] LABS: Bacteria Urine None Seen (None Seen); Hyaline Casts Urine 0-2 /LPF (0-2); RBC Urine 0-2 /HPF (0-2); Squamous Epithelial Cell Urine 0-2 /HPF (0-2); WBC Urine 0-5 /HPF (0-5)
== END 2023-09-29 15:26 | disposition home or self-care (01) ==
LOC: HO.LAB 15:25
PROVIDERS: PCP Internal Medicine; Visit Provider Nurse Practitioner Family
DX: N39.0 Urinary tract infection, site not specified (principal); N20.0 Calculus of kidney; R10.9 Unspecified abdominal pain
CPT/HCPCS: 81001; 87086; 87147

== ENCOUNTER 2023-10-01 16:23 | Outpatient (REF) | payer BC, SELFPAY ==
--- NOTE | ~2023-10-01 | CT_ITS ---
EXAMINATION: CT ABDOMEN AND PELVIS WITHOUT CONTRAST CLINICAL INFORMATION: Calculus of kidney, STAT. COMPARISON: Portions of previous CT 03/20/23. TECHNIQUE: Multidetector CT of the abdomen and pelvis. The patient received: Oral contrast: No Intravenous contrast: 0 mL No contrast reaction reported Sagittal and coronal reformatted images were obtained on the technologist workstation. This CT examination was performed using dose optimization techniques as appropriate, variously including the following: *Automated exposure control *Adjustment of mA and/or kV according to patient size (this includes techniques or standardized protocols for targeted exams where dose is matched to indication/reason for exam; i.e. extremities or head) *Use of iterative reconstruction technique Total exam dose-length product 391 mGy-cm FINDINGS: DIGITAL JAVASCRIPT UI DEVELOPER: No large opaque urinary calculus demonstrated Visualized lower chest: No suspicious abnormality in the visualized lower chest ABDOMEN/PELVIS: Liver, Gallbladder, And Biliary Tree: No suspicious abnormality demonstrated in the liver. The gallbladder is contracted. No definite opaque gallstone. No convincing biliary dilation Pancreas: Limited assessment. No large abnormality. Spleen: Within normal limits Adrenal Glands: Normal Kidneys And Ureters: No dilation of the urinary collecting system. No opaque urinary calculus. Stable tiny fat attenuating lesion posterior upper right kidney consistent with angiomyolipoma. Gastrointestinal Tract: No localized colonic wall thickening. No significant small bowel dilation. Semisolid material within the small bowel could be related to stasis. The stomach is not well distended. No CT evidence of acute appendicitis. Abdominal Wall: No significant hernia is appreciated. Lymphovascular Structures And Fluid: There is no abdominal aortic aneurysm. Bladder: The bladder is nearly empty. No large abnormality. Pelvic Viscera: No suspicious abnormality. Musculoskeletal: No acute or suspicious osseous abnormality. CT/CT kidney stone IMPRESSION: No evidence of urinary tract obstruction. No opaque urinary calculus.
== END 2023-10-01 16:24 | disposition home or self-care (01) ==
LOC: HO.CT 16:23
PROVIDERS: PCP Internal Medicine; Visit Provider Nurse Practitioner Family
DX: N20.0 Calculus of kidney (principal); R10.9 Unspecified abdominal pain
CPT/HCPCS: 74176

== ENCOUNTER 2023-10-15 08:17 | Day surgery (SDC) | payer BC, SELFPAY ==
--- NOTE | 2023-10-14 10:18 | HO.ANESPROP2 ---
Documented by User: Slime Toth NP 10/14/23 10:20 HPI - Anesthesia Eval Consult details Narrative: 53yo F for Upper Endoscopy PMFSH Active Problems Active Problems: All Active Problems Neuropathy of both feet (Acute) Angiolipoma (Acute) Recurrent UTI (Acute) Nephrolithiasis (Acute) Angiolipoma of right kidney (Acute) Complex renal cyst (Acute) Routine screening for STI (sexually transmitted infection) (Acute) Suprapubic pain (Acute) Back pain (Acute) History of carpal tunnel surgery of left wrist (Acute) Paronychia of finger (Acute) Chronic idiopathic constipation (Acute) Gastroesophageal reflux disease (Acute) Acne vulgaris (Acute) Folliculitis (Acute) Shingles (Acute) Dysphagia (Acute) EDD (obstructive sleep apnea) (Acute) Thyroid disease (Acute) Weight loss (Acute) Abdominal pain (Acute) Pain in pelvis (Acute) Anxiety about health (Acute) Toe pain (Acute) Past Medical History Medical History EDD (obstructive sleep apnea) Chronic idiopathic constipation Gastroesophageal reflux disease Angiomyolipoma of right kidney Brain lesion Toe pain Mass of uterus Family History Family History Father Leukemia Arthritis, rheumatoid Mother No problems noted. Paternal Grandfather Colon cancer Family history of problems with anesthesia: No Surgical History Surgical History History of esophagogastroduodenoscopy (EGD) History of colonoscopy History of bunionectomy of right great toe Hx of toe surgery Hx of tubal ligation History of delivery History of Problems with Anesthesia: No Social History Social History Housing: House Alcohol intake: current Alcohol intake frequency: does not drink Patient Tobacco Use Status: Never used Tobacco Second Hand Smoke Exposure: No Advance Directives: No Advance Directives Information Provided: Yes service: No Current occupational status: employed 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 Cognitive needs: No Hearing needs: No Vision needs: No Meds Allergies Allergy/AdvReac Type Severity Reaction Status Date / Time kiwi Allergy Severe rash Verified 09/08/23 15:31 Penicillins [PENICILLINS] Allergy Intermediate SEVERE RASH Verified 09/08/23 15:31 Sulfa (Sulfonamide Allergy Intermediate RASH Verified 09/08/23 15:31 Antibiotics) [SULFA(SULFONAMIDE ANTIBIOTICS)] Home Medications ?Medication ?Instructions ?Recorded ?Confirmed ?Last Taken ?Type ferrous sulfate 325 mg (65 mg 325 mg PO DAILY 06/20/20 08/25/23 Unknown History iron) tablet (Feosol) sumatriptan succinate 100 mg tablet 100 mg PO DIRECTED 06/23/23 08/25/23 Unknown History multivitamin 1 tab PO DAILY 09/08/23 Unknown History Exam Narrative Narrative: Brain MRI report 05/2023 on chart Assessment and Plan Assessment Anesthesia Assessment: Chart Reviewed Final Anesthetic Review Family History of Problems with Anesthesia: No History of Problems with Anesthesia: No Documented by User: Patience Nuñez MD 10/15/23 09:06 [facility] Active Problems Active Problems: All Active Problems Neuropathy of both feet (Acute) Angiolipoma (Acute) Recurrent UTI (Acute) Nephrolithiasis (Acute) Angiolipoma of right kidney (Acute) Complex renal cyst (Acute) Routine screening for STI (sexually transmitted infection) (Acute) Suprapubic pain (Acute) Back pain (Acute) History of carpal tunnel surgery of left wrist (Acute) Paronychia of finger (Acute) Chronic idiopathic constipation (Acute) Gastroesophageal reflux disease (Acute) Acne vulgaris (Acute) Folliculitis (Acute) Shingles (Acute) Dysphagia (Acute) Thyroid disease (Acute) Weight loss (Acute) Abdominal pain (Acute) Pain in pelvis (Acute) Anxiety about health (Acute) Toe pain (Acute) Past Medical History Medical History EDD (obstructive sleep apnea) Chronic idiopathic constipation Gastroesophageal reflux disease Angiomyolipoma of right kidney Brain lesion Toe pain Mass of uterus Family History Family History Father Leukemia Arthritis, rheumatoid Mother No problems noted. Paternal Grandfather Colon cancer Family history of problems with anesthesia: No Surgical History Surgical History History of esophagogastroduodenoscopy (EGD) History of colonoscopy History of bunionectomy of right great toe Hx of toe surgery Hx of tubal ligation History of delivery History of Problems with Anesthesia: No Social History Social History Housing: House Alcohol intake: current Alcohol intake frequency: does not drink Patient Tobacco Use Status: Never used Tobacco Second Hand Smoke Exposure: No Advance Directives: No Advance Directives Information Provided: Yes service: No Current occupational status: employed 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 Cognitive needs: No Hearing needs: No Vision needs: No Meds Allergies Allergy/AdvReac Type Severity Reaction Status Date / Time kiwi Allergy Severe rash Verified 09/08/23 15:31 Penicillins [PENICILLINS] Allergy Intermediate SEVERE RASH Verified 09/08/23 15:31 Sulfa (Sulfonamide Allergy Intermediate RASH Verified 09/08/23 15:31 Antibiotics) [SULFA(SULFONAMIDE ANTIBIOTICS)] Home Medications ?Medication ?Instructions ?Recorded ?Confirmed ?Last Taken ?Type ferrous sulfate 325 mg (65 mg 325 mg PO DAILY 06/20/20 08/25/23 Unknown History iron) tablet (Feosol) sumatriptan succinate 100 mg tablet 100 mg PO DIRECTED 06/23/23 08/25/23 Unknown History multivitamin 1 tab PO DAILY 09/08/23 Unknown History Exam Height,Weight and Vital Signs: Height 5 ft 8 in Weight 64.864 kg Vital Signs Temp Pulse Resp BP Pulse Ox O2 Del Method 10/15/23 08:28 97.4 F 90 16 114/70 97 Room Air Airway Mallampati Class: II TM Dist: >3cm Neck ROM: Full Loose/Missing/Broken Teeth: Yes (Broken tooth top right.Some missing teeth back. Denies loose teeth) Heart: RRR Lungs: CTAB Assessment and Plan Assessment Anesthesia Assessment: Anesthesia Plan Discussed and Chart Reviewed Final Anesthetic Review Family History of Problems with Anesthesia: No History of Problems with Anesthesia: No NPO: Yes ASA Class: II Final Preanesthetic Review: No Changes in Pt Med Stat, Meds/Allgs Chart Reviewed, Consent Obtained/Reviewed and Anes Risks/Benef Reviewed Patient Risk: Intermediate Procedure Risk: Low Assessment/Block/Sedation in SS: Assess/Block/Sedation-SS Anesthetic Plan Anesthetic Plan: TIVA Disposition: Standard PACU
[2023-10-15 08:28] VITALS: BP 114/70; PULSE 90; RESP 16; TEMP 36.3; O2SAT 97; BMI 21.7
[2023-10-15] MEDS: Lactated Ringers 1,000 ML 100 ML IVCONT (08:43)
--- NOTE | 2023-10-15 08:56 | MHC.SHP ---
Pre-Procedural Eval Section A - 24 Hr Update-Section A only Date of Service: 10/15/23 Section B - Complete if H&P > 30 days Chief Complaint: Dysphagia, oropharyngeal phase Relevant Family History (Specify if Yes): No Relevant Social History: None Present Medications: see Short Stay Collaborative assessment Medical History: Significant History (Chronic idiopathic constipation Gastroesophageal reflux disease Angiomyolipoma of right kidney Brain lesion Toe pain Mass of uterus) History of Previous Operations: Relevant previous surgery/procedure and date(s) (History of esophagogastroduodenoscopy (EGD) History of colonoscopy History of bunionectomy of right great toe Hx of toe surgery Hx of tubal ligation History of delivery) Allergies: Allergies Allergy/AdvReac Type Severity Reaction Status Date / Time kiwi Allergy Severe rash Verified 09/08/23 15:31 Penicillins [PENICILLINS] Allergy Intermediate SEVERE RASH Verified 09/08/23 15:31 Sulfa (Sulfonamide Allergy Intermediate RASH Verified 09/08/23 15:31 Antibiotics) [SULFA(SULFONAMIDE ANTIBIOTICS)] Review of Systems Sugical H&P ROS: Negative: Constitution, Cardiovascular, Respiratory, Neurological, Psychiatric, Hem-Onc, Allergic/Immunologic, Gastrointestinal, Genitourinary, Musculoskeletal, Integumentary, Endocrine and Eyes/Ears/Nose/Throat Exam Surgical H&P Exam: Normal: HEENT, Normal: Heart, Normal: Lungs, Normal: Extremities, Normal: Abdomen, Normal: Skin and Normal: Neurological Plan Diagnosis/Plan: Unchanged I have reviewed the history and physical and performed a pertinent physical examination on my patient. No changes have occurred unless specified. Time Spent With Patient Time: Total time managing care of this patient today ____ minutes.
--- NOTE | 2023-10-15 08:57 | W.PM.OPN ---
Operative Note Operative Note Date of Service: 10/15/23 Narrative: Procedure Description: EGD Indication: dysphagia Anesthesia: MAC FLEXIBLE TRANSORAL UPPER GASTROINTESTINAL ENDOSCOPY UPPER ENDOSCOPY Consent: Indications for the procedure and potential complications of bleeding, perforation, reaction to medications and missed diagnosis were discussed with the patient and informed consent was obtained. Instrument: Olympus GIF H 190 J mid size upper endoscope Monitoring: Vital signs and clinical assessment, continuous EKG monitoring, Pulse oximetry, Carbon Dioxide monitoring and blood pressure monitoring were done throughout the procedure. Procedure: The patient was placed in the left lateral decubitis position and pre-procedure medications were administered and a bite block was placed. The endoscope was inserted into the mouth and advanced under direct vision to the third part of duodenum. A careful inspection was made as the upper endoscope was withdrawn including a retroflexed examination of the proximal stomach; Findings and interventions are described below. Findings: Larynx:normal Esophagus: GE junction at 43 cm, diaphragm hiatus at 43 cm, mild bogginess at GEJ, using savary wire guided technique the esophagus was dilated using a 17 mm bougie with some heme noted at GEJ. bx taken from GEJ, distal and proximal esophagus Stomach: mild erythema . Biopsies were obtained. Grade 2 flap valve on retroflexed examination of the cardia. Duodenum: Normal bulb and descending duodenum, Intervention: Biopsies as noted above, savary wire guided bougie dilation Impression/Findings: gastritis esophagitis, mild PLAN: await bx GERD precautions
[2023-10-15 09:24] VITALS: BP 106/61; PULSE 73; RESP 16; TEMP 36.3; O2SAT 99
[2023-10-15 09:39] VITALS: BP 118/69; PULSE 76; RESP 18; TEMP 36.8; O2SAT 99
== END 2023-10-15 10:18 | disposition home or self-care (01) ==
PROVIDERS: PCP Internal Medicine; Visit Provider Internal Medicine Gastroenterology
PROC: 0DJ08ZZ Inspection of Upper Intestinal Tract, Via Natural or Artificial Opening Endoscopic (ICD-10-PCS; CPT 43235; principal; 2023-10-15 10:00)
DX: R13.12 Dysphagia, oropharyngeal phase (principal); K21.00 Gastro-esophageal reflux disease with esophagitis, without bleeding; K29.70 Gastritis, unspecified, without bleeding; Z88.0 Allergy status to penicillin; Z88.2 Allergy status to sulfonamides
CPT/HCPCS: 43248; 43239; 88305; 88313; 88342; C1769; J1596; J2704

== ENCOUNTER → 2023-10-15 08:17 | Outpatient (BNV) | payer BC, SELFPAY | PROVIDERS: PCP Internal Medicine; Visit Provider Internal Medicine Gastroenterology | DX: R13.10 Dysphagia, unspecified (principal); K29.70 Gastritis, unspecified, without bleeding; K20.90 Esophagitis, unspecified without bleeding | CPT/HCPCS: 43239; 43248 ==

== ENCOUNTER 2023-10-22 17:00 | Outpatient (RCR) | payer BC, SELFPAY ==
--- NOTE | 2023-10-06 12:47 | MHC.PT.EP ---
[facility] [place] Office [place] [facility] [place] Office [address] Jana Marks [address] [phone] F: [phone] F: [phone] F: [phone] F: [phone] Physical Therapy Plan of Care Date of Evaluation: 10/01/23 Date of Surgery: n/a Diagnosis: Low Back Pain, unspecified Assessment: Pt is a pleasant and motivated 53yo F who presents to PT with low back pain. She presents to PT with current impairments in pain, decreased lumbar ROM, decreased muscle length, decreased core stabilization, decreased hip/glute strength, and impaired posture. She is limited functionally by bending, prolonged standing, prolonged sitting, walking, and heavy lifting. She is a good candidate for skilled PT in order to address current impairments to facilitate return to PLOF. She is recommended to be seen 2x/week for 4 weeks and will be reassessed at that time Frequency and Duration: The patient will be seen 2x/week for 4 weeks Short Term Goals: Pt will be I with HEP to promote self management of symptoms Pt will demonstrate improvements in posture and body mechanics throughout the day Delivery Mgr Goals: Pt will achieve full ROM all planes of lumbar spine with minimal to no discomfort to assist with functional tasks Pt will demonstrate ability to squat and pick and shovel worker object from the floor with proper mechanics Pt will demonstrate improvements in function as evidenced by statistically significant improvement in Modified Oswestry Low Back Pain Disability Questionnaire Treatment Plan: Modalities to reduce pain, spasms and effusion. Manual therapy to restore motion and function. Therapeutic exercise to improve strength and flexibility. Neuromuscular re-education for posture and balance. Therapeutic activities to return to functional activities of daily living. Electronically signed by: Anne Jordan, PT, DPT Please sign and return to therapist. Thank you for your referral.
--- NOTE | 2023-12-29 10:32 | MHC.PT.DC ---
[facility] [place] Office [place] Office [place] Office [address] Jana Marks [address] [phone] F: [phone] F: [phone] F: [phone] F: [phone] Physical Therapy Discharge Report Diagnosis: Low Back Pain, unspecified Date of Surgery: n/a Date of Evaluation: 10/01/23 Date of Discharge: 12/29/23 Treatments to Date: 4 Cancellations to Date: No Shows to Date: Discharge Status: Discharge Summary: Pt was seen for PT from 10/01/23-10/22/23. Her last attended appointment was 10/22/23. She is being D/C from skilled PT as she has not attended or called to schedule in > 30 days. Pt current level of function unknown at this time Electronically signed by: Anne Jordan, PT, DPT Please sign and return to therapist. Thank you for your referral.
== END 2023-12-29 10:31 | disposition home or self-care (01) ==
LOC: HO.PT 17:00
PROVIDERS: PCP Internal Medicine; Visit Provider Internal Medicine
DX: M54.50 Low back pain, unspecified (principal)
CPT/HCPCS: 97110; 97140; 97162; 97530

== ENCOUNTER 2023-11-24 15:27 | Outpatient (REF) | payer BC, SELFPAY | END 2023-11-24 15:28 | disposition home or self-care (01) | LOC: HO.LAB 15:27 | PROVIDERS: PCP Internal Medicine; Visit Provider Nurse Practitioner Family | DX: R13.12 Dysphagia, oropharyngeal phase (principal); Z91.09 Other allergy status, other than to drugs and biological substances | CPT/HCPCS: 36415; 86003 ==

== ENCOUNTER 2023-11-24 15:27 | Outpatient (AMB) | payer BC, SELFPAY ==
--- NOTE | 2023-11-24 15:41 | A.OFFVIS_ITS ---
Vital Signs 11/24/23 15:49 Height 5 ft 8 in BP 90/62 Blood Pressure Location Lt brachial Position Sitting Pulse 80 Pulse Source Pulse Oximeter Pulse Oximetry (%) 97 Oxygen Delivery Method Room Air Intake Visit Reasons: s/p egd 10/15/2023 Intake Note: Gina presents in office today to discuss recent s/p CC; Field Secretary Required: No Allergies kiwi Allergy (Severe, Verified 11/24/23 15:43) rash Penicillins [PENICILLINS] Allergy (Intermediate, Verified 11/24/23 15:43) SEVERE RASH Sulfa (Sulfonamide Antibiotics) [SULFA(SULFONAMIDE ANTIBIOTICS)] Allergy (Intermediate, Verified 11/24/23 15:43) RASH HPI HPI s/p egd 10/15/2023: Details: LAST VISIT Dysphagia Gastroesophageal reflux disease Chronic idiopathic constipation Plan Addressed with patient the importance of avoiding dietary triggers as well as trying to relieve stress. Continue current PPI dose. We will send patient to [facility] as patient is not sure if she had mom 3 done or not, if patient will find reports she will drop it off at the office. We will send patient for upper endoscopy for stretching of the esophagus. Pending report from motility testing we might send patient for upper GI series with barium swallow. She will call our office if she will have any GI concerning symptoms. I will see her after the procedure, sooner on as needed basis. Patient is agreeable to this plan and verbalizes understanding of instructions. She was given the opportunity to ask questions and all questions answered. ? Thank you for allowing me to participate in her care Orders Referrals Gastroenterology Referral R13.12 UPPER ENDOSCOPY Findings: Larynx:normal Esophagus: GE junction at 43 cm, diaphragm hiatus at 43 cm, mild bogginess at GEJ, using savary wire guided technique the esophagus was dilated using a 17 mm bougie with some heme noted at GEJ. bx taken from GEJ, distal and proximal esophagus Stomach: mild erythema . Biopsies were obtained. Grade 2 flap valve on retroflexed examination of the cardia. Duodenum: Normal bulb and descending duodenum, Intervention: Biopsies as noted above, savary wire guided bougie dilation Impression/Findings: gastritis esophagitis, mild PLAN: await bx GERD precautions PATHOLOGY RESULTS Diagnosis A. Stomach, biopsy: Gastric antral and body mucosa with minimal chronic inactive gastritis; negative for H pylori, intestinal metaplasia and dysplasia. B. Esophagogastric junction, biopsy: Squamous mucosa with hyperplasia and focal intraepithelial eosinophils (up to 2 per high-power field) consistent with esophagitis, and columnar mucosa with mild chronic inflammation; negative for intestinal metaplasia and dysplasia. C. Esophagus, distal, biopsy: Squamous mucosa with no specific change; no columnar mucosa present. D. Esophagus, proximal, biopsy: Squamous mucosa with no specific change; no columnar mucosa present. TODAY'S VISIT Patient is here today for follow-up and to discuss upper endoscopy results. Patient reports that she continues with patient to have trouble swallowing. Not all the time. Sometimes she feels like she might be choking and food goes down slowly. Patient had motility study done at [facility] and treated with Nexium for some time. Patient continues to drink coffee not as much as before. Continues to be under a lot of stress with her job. Upper endoscopy showed chronic inactive inflammation with mild esophagitis, no H pylori, intestinal metaplasia or dysplasia found. Esophageal dilation was performed. Patient has been taking Nexium daily. Results of the procedure discussed with patient [facility] Medical History EDD (obstructive sleep apnea) Chronic idiopathic constipation Gastroesophageal reflux disease Angiomyolipoma of right kidney Brain lesion Toe pain Mass of uterus Surgical History History of esophagogastroduodenoscopy (EGD) History of colonoscopy History of bunionectomy of right great toe Hx of toe surgery Hx of tubal ligation History of delivery Family History Father Leukemia Arthritis, rheumatoid Mother No problems noted. 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 Cognitive needs: No Hearing needs: No Vision needs: No Review of Systems Const Denies weight gain and Denies weight loss ENT Reports no additional complaints, Reports dysphagia and Denies odynophagia Card Reports no additional complaints Resp Reports no additional complaints GI Denies abdominal pain, Denies belching, Denies melena, Denies bloating, Denies change in bowel habits, Reports dysphagia, Denies excessive flatus, Denies dyspepsia, Denies heartburn, Denies diarrhea, Denies loose stools, Denies nausea, Denies odynophagia and Denies vomiting Reports no additional complaints Musc Reports no additional complaints Neuro Reports no additional complaints Psych Reports no additional complaints Endo Reports no additional complaints Physical Exam Vital Signs: Last Vital Signs Pulse 80 11/24/23 15:49 BP 90/62 11/24/23 15:49 Pulse Ox 97 11/24/23 15:49 Oxygen Delivery Method Room Air 11/24/23 15:49 Const General: healthy appearing, no acute distress and well developed Nutritional Appearance: well nourished Orientation/consciousness: patient oriented x3 Resp Effort & Inspection: normal respiratory effort, able to speak in complete sentences, no tracheal deviation and symmetric chest movement Auscultation: clear to auscultation bilaterally Cardio Rate: regular rate Heart sounds: S1 normal heart sound present and S2 normal heart sound present GI Inspection: Yes normal to inspection and No distended Palpation (GI): Soft to palpation, not firm, nontender and No hepatosplenomegaly present Auscultation: normal bowel sounds General: Yes no CVA tenderness Back/Spine/Pelvis Back: no CVA tenderness Skin General skin exam: elasticity normal, turgor normal and dry skin Neuro General: patient oriented x3 Psych Appearance: grossly normal Mental Status: mental status grossly normal Assessment & Plan Assessment & Plan (1) Dysphagia: Code(s): R13.10 - Dysphagia, unspecified Category: Medical Qualifiers: Dysphagia type: oropharyngeal phase Qualified Code(s): R13.12 - Dysphagia, oropharyngeal phase (2) Gastroesophageal reflux disease: Code(s): K21.9 - Gastro-esophageal reflux disease without esophagitis Category: Medical Qualifiers: Esophagitis presence: with esophagitis Esophagitis bleeding: without hemorrhage Qualified Code(s): K21.00 - Gastro-esophageal reflux disease with e sophagitis, without bleeding (3) Chronic idiopathic constipation: Code(s): K59.04 - Chronic idiopathic constipation Category: Medical Plan Patient will be referred to organic section technical lead. Discussed procedure and plan with Dr. Troncoso who recommend sending her to [facility] for manometry. Continue Nexium. Avoid dietary triggers and late night snacking. Staying upright for minimum 3 hours after meals discussed with patient. Patient will follow-up in 6 months, sooner on as needed basis. Patient is agreeable to this plan and verbalizes understanding of instructions. She was given the opportunity to ask questions and all questions answered. Thank you for allowing me to participate in her care Orders: Referrals Gastroenterology Referral R13.12 - Dysphagia, oropharyngeal phase Allergy & Immunology Referral R13.10 - Dysphagia, unspecified, J31.0 - Chronic rhinitis Medications: Refilled esomeprazole magnesium (Nexium) 40 mg PO DAILY 30 caps 5RF K21.9 - Gastro- esophageal reflux disease without esophagitis Coding Level of Care Code Est Pt Level 4 (65149) Diagnoses Oropharyngeal dysphagia R13.12 Dysphagia type: oropharyngeal phase Gastroesophageal reflux disease with esophagitis without hemorrhage K21.00 Esophagitis presence: with esophagitis Esophagitis bleeding: without hemorrhage Chronic idiopathic constipation K59.04 Time Spent (min) 35 Comment 20 minutes spent with patient and additional 15 minutes spent reviewing her records
[2023-11-24 15:49] VITALS: BP 90/62; PULSE 80; O2SAT 97
== END 2023-11-24 16:06 | disposition home or self-care (01) ==
PROVIDERS: PCP Internal Medicine; Visit Provider Nurse Practitioner Family
DX: R13.12 Dysphagia, oropharyngeal phase (principal); K21.00 Gastro-esophageal reflux disease with esophagitis, without bleeding; K59.04 Chronic idiopathic constipation
CPT/HCPCS: 99214

== ENCOUNTER 2023-12-10 15:22 | Outpatient (REF) | payer BC, SELFPAY ==
--- NOTE | ~2023-12-10 | US_ITS ---
EXAMINATION: US RETROPERITONEAL LIMITED (RENAL ONLY) CLINICAL INFORMATION: Calculus of kidney. COMPARISON: CT stone study 10/01/2023. Ultrasound kidneys and bladder 06/16/2023. MRI kidney 12/11/2022. Renal ultrasound on 10/22/2022. TECHNIQUE: Real-time imaging of the kidneys. Limited visualization due to bowel gas. FINDINGS: RIGHT KIDNEY: 10.0 x 3.5 x 5.0 cm (SAG x AP x TRV). No hydronephrosis. No obstructing renal calculi. Renal cortical thickness is normal. Stable 0.5 cm upper pole echogenic cortical lesion, likely an angiomyolipoma. 0.6 cm upper pole cyst with mural echogenicity characteristic of calcification. There is no specific indication for additional imaging at this time. Limited visualization. LEFT KIDNEY: 9.3 x 5.3 x 5.0 cm (SAG x AP x TRV). No hydronephrosis. No renal calculi. Renal cortical thickness is normal. Limited visualization. US/US renal BI IMPRESSION: 1. Stable 0.5 cm right upper pole echogenic cortical lesion, likely an angiomyolipoma. 2. 0.6 cm right upper pole cyst with mural echogenicity characteristic of calcification. There is no specific indication for additional imaging at this time.
== END 2023-12-10 15:23 | disposition home or self-care (01) ==
LOC: HO.US 15:22
PROVIDERS: PCP Internal Medicine; Visit Provider Nurse Practitioner Family
DX: N20.0 Calculus of kidney (principal); D17.9 Benign lipomatous neoplasm, unspecified
CPT/HCPCS: 76775

== ENCOUNTER 2023-12-22 15:21 | Outpatient (AMB) | payer BC, SELFPAY ==
--- NOTE | 2023-12-22 15:22 | A.OFFVIS_ITS ---
Intake Visit Reasons: 6m/US(set) Intake Note: Patient presents today for follow up visit on: renal cyst, angiolipoma right kidney, recurrent uti, and ultrasound results Imaging Completed: 12/10/23 Urology Medications: none Blood thinner: none Wind Site Manager Required: No Accompanied by: Self / Same As Patient Allergies kiwi Allergy (Severe, Verified 12/22/23 22:42) rash Penicillins [PENICILLINS] Allergy (Intermediate, Verified 12/22/23 22:42) SEVERE RASH Sulfa (Sulfonamide Antibiotics) [SULFA(SULFONAMIDE ANTIBIOTICS)] Allergy (Intermediate, Verified 12/22/23 22:42) RASH Medication List - Last Reconciled 12/22/23 by SAAD Christina esomeprazole magnesium (Nexium) 40 mg PO DAILY ferrous sulfate (Feosol) 325 mg PO DAILY multivitamin 1 tab PO DAILY HPI Comments Details: Gina is a very pleasant 53 year old female patient of Dr. Marie. She has a past medical history of brain lesion, chronic idiopathic constipation, GERD, and a mass in her uterus that was removed December of 2020. She presents to the office today for follow-up of her lower urinary tract symptoms, angiolipoma, in renal cyst. In discussion with the patient today she reports to be doing and feeling well. She discusses her ongoing intermittent issues with low-back pain in bladder pressure. She discusses since her last office visit here approximately 6 months ago she has been attempting to decrease her caffeine/coffee intake and has been drinking approximately 2-3 bottles of water a day. Recent renal imaging results reviewed with the patient today. Bilateral kidneys with no calculi or hydronephrosis. Stable 0.5 cm upper pole echogenic cortical lesion likely an angiolipoma. 0.6 cm upper pole cyst with mural echogenicity characteristic of calcification. There is no specific indication for additional imaging follow-up at this time. Left kidney with no hydronephrosis and or renal calculi noted. Previous workup has included a MRI to further assess renal lesion which was also suggestive of angiolipoma. Patient also with a history of in office cystoscopy that noted generalized erythema noted to the bladder wall at which time recommendations were made to increase water intake as patient discusses working at [email or web address] and drinks coffee frequently. In office urinalysis results reviewed with the patient today. PH 5.5 discussed and stressed the importance of adequate hydration relation to lower urinary tract symptoms as well as overall health and well-being. She otherwise denies any other issues or concerns at this time. [facility] Medical History EDD (obstructive sleep apnea) Chronic idiopathic constipation Gastroesophageal reflux disease Angiomyolipoma of right kidney Brain lesion Toe pain Mass of uterus Surgical History History of esophagogastroduodenoscopy (EGD) History of colonoscopy History of bunionectomy of right great toe Hx of toe surgery Hx of tubal ligation History of delivery Family History Father Leukemia Arthritis, rheumatoid Mother No problems noted. 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 Cognitive needs: No Hearing needs: No Vision needs: No Review of Systems Const All systems reviewed & are unremarkable except as noted in HPI and below Eyes Reports no additional complaints ENT Reports no additional complaints Card Reports no additional complaints Resp Reports no additional complaints GI Reports as per HPI Reports as per HPI Neuro Reports as per HPI Endo Reports no additional complaints Physical Exam Const General: cooperative, healthy appearing, comfortable, no acute distress, well developed, alert and awake Nutritional Appearance: thin Orientation/consciousness: patient oriented x3 Limitations: no limitations HEENT Head: Yes normal to inspection, Yes normocephalic and Yes atraumatic Ears: hearing grossly normal bilaterally Eyes General: appearance normal, both eyes and all related structures Neck Neck: Yes normal visual inspection and Yes trachea midline Chest Chest palpation & inspection: normal inspection of the chest Resp Effort & Inspection: normal respiratory effort and able to speak in complete sentences Cardio Rate: regular rate GI Inspection: Yes normal to inspection General: Yes no CVA tenderness Back/Spine/Pelvis Back: no CVA tenderness Skin General skin exam: no rashes or lesions noted Neuro General: patient oriented x3 Extrem General: Yes normal to inspection Psych Appearance: grossly normal and well kempt Mental Status: mental status grossly normal Speech and movement: Normal speech and movement present and Clear speech present Affect: normal affect Attitude: cooperative Thought process: Normal thought process present Thought content: Normal thought content present Insight: Fair insight present (Psych) Judgement: Fair judgement present (Psych) Office Procedures Post Void Residual Post Residual Void Post Void Residual (PVR): 0 09405-Fsec Void Residual by ultrasound Results AMB Urinalysis, Automated UA Leukoctes 15 Piter/uL Last Edit by [email or web address] on 12/22/23 16:16 UA Nitrite Last Edit by [email or web address] on 12/22/23 16:16 UA Urobilinogen 0.2 mg/dL Last Edit by [email or web address] on 12/22/23 16:16 UA Protein 15 mg/dL Last Edit by [email or web address] on 12/22/23 16:16 UA pH 5.5 Last Edit by [email or web address] on 12/22/23 16:16 UA Blood 25 Donny/uL Last Edit by [email or web address] on 12/22/23 16:16 UA Specific [place] 1.025 Last Edit by [email or web address] on 12/22/23 16:16 UA Ketone Last Edit by [email or web address] on 12/22/23 16:16 UA Bilirubin 0 mg/dL Last Edit by [email or web address] on 12/22/23 16:16 UA Glucose 0 mg/dL Last Edit by [email or web address] on 12/22/23 16:16 Results Reviewed Results Reviewed: Laboratory Last Values Urine pH (Auto) 5.5 12/22/23 16:14 Specific [place] (Auto) 1.025 12/22/23 16:14 Urine Protein (Auto) 15 mg/dL 12/22/23 16:14 Glucose (UA)(Auto) 0 mg/dL 12/22/23 16:14 Urine Blood (Auto) 25 Donny/uL 12/22/23 16:14 Urine Bilirubin (Auto) 0 mg/dL 12/22/23 16:14 Urine Urobilinogen (Auto) 0.2 mg/dL 12/22/23 16:14 Leukocyte Esterase (Auto) 15 Piter/uL 12/22/23 16:14 Date of Service: 12/10/23 EXAMINATION: US RETROPERITONEAL LIMITED (RENAL ONLY) FINDINGS: RIGHT KIDNEY: 10.0 x 3.5 x 5.0 cm (SAG x AP x TRV). No hydronephrosis. No obstructing renal calculi. Renal cortical thickness is normal. Stable 0.5 cm upper pole echogenic cortical lesion, likely an angiomyolipoma. 0.6 cm upper pole cyst with mural echogenicity characteristic of calcification. There is no specific indication for additional imaging at this time. Limited visualization. LEFT KIDNEY: 9.3 x 5.3 x 5.0 cm (SAG x AP x TRV). No hydronephrosis. No renal calculi. Renal cortical thickness is normal. Limited visualization. IMPRESSION: 1. Stable 0.5 cm right upper pole echogenic cortical lesion, likely an angiomyolipoma. 2. 0.6 cm right upper pole cyst with mural echogenicity characteristic of calcification. There is no specific indication for additional imaging at this time. 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 Recent renal imaging results reviewed with the patient today; as noted above. Discussed bladder triggers/irritants. Discussed, educated, and stressed the importance of adequate hydration relation to lower urinary tract symptoms as well as overall health and well-being. Will continue with surveillance monitoring of renal cysts/angiolipoma Will obtain renal ultrasound in 6 months. Follow-up in 6 months with imaging to be completed prior; or sooner with any issues, concerns, and or questions. Orders: Orders US renal BI 6 Months N20.0 - Calculus of kidney AMB Urinalysis Automated Today Z13.9 - Encounter for screening, unspecified AMB Post Void Residual by ultrasound Today N39.0 - Urinary tract infection, site not specified Urine Cytology Today N39.0 - Urinary tract infection, site not specified Patient Instructions: The patient had an opportunity to ask questions regarding the treatment plan. All questions were answered. Physical exam, labs, and imaging were discussed and reviewed in detail. As well as risks, benefits, and discussion of treatment choices. No major barriers to understanding were identified. The patient expressed understanding and agreement with the above treatment plan. The patient was made aware they should contact our office by phone for worsening of their current condition, the appearance of new symptoms, or with any questions or concerns. Compliance is encouraged with any medications and follow up testing that is ordered. It is a privilege to be allowed the opportunity to participate in? your urological care.? Again, if you have any questions or concerns If you have any questions or concerns please do not hesitate to contact me. The office is [phone]. This note is constructed using voice recognition software. While every effort has been made to ensure accuracy llama farmer errors may have been included. Yours sincerely, SAAD Christina Coding Level of Care Code Est Pt Level 3 (35537) Complex EM visit Add On G2211 Diagnoses Angiolipoma D17.9 Renal cyst N28.1 CPT Codes Post Residual Void - PVR CPT Code: 99982-Oaxv Void Residual by ultrasound ([id number])
== END 2023-12-22 16:06 | disposition home or self-care (01) ==
PROVIDERS: PCP Internal Medicine; Visit Provider Nurse Practitioner Family
DX: D17.9 Benign lipomatous neoplasm, unspecified (principal); N28.1 Cyst of kidney, acquired
CPT/HCPCS: 99213

== ENCOUNTER 2023-12-22 15:21 | Outpatient (REF) | payer BC, SELFPAY ==
[2023-12-22 17:07] LABS: Urine Cytology See Pathology rpt
== END 2023-12-22 15:22 | disposition home or self-care (01) ==
LOC: HO.LNP 15:21
PROVIDERS: PCP Internal Medicine; Visit Provider Nurse Practitioner Family
DX: N39.0 Urinary tract infection, site not specified (principal); D17.71 Benign lipomatous neoplasm of kidney
CPT/HCPCS: 51798; 81003; 88112

== ENCOUNTER 2024-03-04 13:35 | Outpatient (AMB) | payer BC, SELFPAY ==
[2024-03-04 13:38] VITALS: BP 134/66; PULSE 93; O2SAT 96; BMI 22.7
--- NOTE | 2024-03-04 13:38 | A.OFFPC_ITS ---
Vital Signs 03/04/24 13:38 Height 5 ft 8 in Weight 149 lb BMI 22.7 BP 134/66 Blood Pressure Location Lt brachial Position Sitting Pulse 93 Pulse Source Pulse Oximeter Pulse Oximetry (%) 96 Oxygen Delivery Method Room Air Intake Visit Reasons: annual exam- needs A1C Intake Note: Pt reports taking vitamin B and D but doesn't know how much of each. 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 Accompanied by: Self / Same As Patient Allergies kiwi Allergy (Severe, Verified 03/04/24 13:43) rash Penicillins [PENICILLINS] Allergy (Intermediate, Verified 03/04/24 13:43) SEVERE RASH Sulfa (Sulfonamide Antibiotics) [SULFA(SULFONAMIDE ANTIBIOTICS)] Allergy (Intermediate, Verified 03/04/24 13:43) RASH Medication List - Last Reconciled 03/07/24 by Kuldeep Marie MD esomeprazole magnesium (Nexium) 40 mg PO DAILY ferrous sulfate (Feosol) 325 mg PO DAILY multivitamin 1 tab PO DAILY Tobacco use date assessed: 08/24/23 Dental Screening Dental Screen Date: 06/09/23 HPI annual exam- needs A1C HPI Details No PE performed; seen for an A1C of 5.7; saw neurology for neuropathy and this test was ordered; no history of DM PFSH Medical History EDD (obstructive sleep apnea) Chronic idiopathic constipation Gastroesophageal reflux disease Angiomyolipoma of right kidney Brain lesion Toe pain Mass of uterus Surgical History History of esophagogastroduodenoscopy (EGD) History of colonoscopy History of bunionectomy of right great toe Hx of toe surgery Hx of tubal ligation History of delivery Family History Father Leukemia Arthritis, rheumatoid Mother No problems noted. 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 1. Little interest or pleasure in doing things: not at all 2. Feeling down, depressed, or hopeless: nearly every day 3. Trouble falling or staying asleep, or sleeping too much: nearly every day 4. Feeling tired or having little energy: nearly every day 5. Poor appetite or overeating: more than half the days 6. Feeling bad about yourself - or that you are a failure or have let yourself or your family down: not at all 7. Trouble concentrating on things, such as reading the newspaper or watching television: not at all 8. Moving or speaking so slowly that other people could have noticed. Or the opposite - being so fidgety or restless that you have been moving around a lot more than usual: not at all 9. Thoughts that you would be better off or of hurting yourself in some way: not at all Total score: 11 Source: Developed by Drs. Emerson Garcia, Mojgan Cruz, Florentino Hall and colleagues, with an educational steph from [employer]. Thrive Questionnaire Date Thrive assessed: 03/02/24 I am a: Patient What is your living situation today?: I have a steady place to live Within the past 12 months, did the food you bought not last and you didn't have the money to get more?: Never true Within the past 12 months, did you worry whether your food would run out before you got money to buy more?: Never true Do you have trouble paying for medicines?: No Do you have trouble getting transportation to medical appointments?: No Do you have trouble paying your heating and electricity bill?: No Do you have trouble taking care of your child, family member or friend?: No Do you have trouble with day-to-day activities such as bathing, preparing meals, shopping, managing finances, etc.?: No Are you currently unemployed and looking for a job?: No Are you interested in more education?: No Please select the resources that you would like help with: None Currently or been in a relationship where the following occur: No concerns reported THRIVE Score: 0 AUDIT C Alcohol Use Questionnaire (AUDIT-C) 1. How often do you have a drink containing alcohol?: Never Total Score: 0 ERIC-7 AMB Questionnaire ERIC-7 Date ERIC - 7 assessed: 06/09/23 Feeling nervous, anxious, or on edge: 0 = Not at all Not being able to stop or control worryin = Not at all Worrying too much about different things: 0 = Not at all Trouble relaxin = Not at all Being so restless that it is hard to sit still: 0 = Not at all Becoming easily annoyed or irritable: 0 = Not at all Feeling afraid as if something awful might happen: 1 = Several days Total ERIC-7 score (0-4 normal; 5-9 mild; 10-14 moderate; 15-21 severe): 1 Source: Developed by Drs. Emerson Garcia, Mojgan Cruz, Florentino Hall and colleagues, with an educational steph from [employer]. Review of Systems Const Denies chills, Denies headache(s) and Denies weight loss ENT Denies headache(s) Card Denies chest pain, Denies syncope, Denies irregular heart rhythm and Denies dyspnea Resp Denies chest congestion, Denies cough and Denies dyspnea GI Denies abdominal pain, Denies change in stool character, Denies nausea and Denies vomiting Musc Denies deformity and Denies joint swelling Neuro Denies syncope and Denies headache(s) Physical exam (Primary Care) Vital Signs: Last Vital Signs Pulse 93 03/04/24 13:38 BP 134/66 03/04/24 13:38 Pulse Ox 96 03/04/24 13:38 Oxygen Delivery Method Room Air 03/04/24 13:38 BMI result Body Mass Index 22.7 Tobacco/Smoking Status: Tobacco use Status Tobacco use date assessed 08/24/23 03/04/24 13:49 Patient Tobacco Use Status Never used Tobacco 03/04/24 13:49 Tobacco use type Cigarette 03/04/24 13:49 e-Cigarette/Vaping Use Never Used 03/04/24 13:49 PHQ-9: PHQ-9 Score PHQ-9: Total score 11 03/04/24 13:49 Thrive Assessment: Date of Thrive Assessment Date Thrive assessed 03/02/24 03/04/24 13:49 Currently or been in a relationship where the following occur: No concerns reported Const General: cooperative, comfortable, no acute distress and alert Neck Neck: Yes no lymphadenopathy Thyroid: Thyroid normal Resp Effort & Inspection: normal respiratory effort Auscultation: clear to auscultation bilaterally Percussion: percussion normal Cardio Jugular venous distension: no JVD Palpation: normal PMI Rate: regular rate Rhythm: regular rhythm Heart sounds: S1 normal heart sound present and S2 normal heart sound present GI Inspection: Yes normal to inspection Palpation (GI): No hepatosplenomegaly present Skin General skin exam: no rashes or lesions noted Extrem General: Yes no clubbing, cyanosis or edema Results AMB Hemoglobin A1c AMB Hemoglobin A1c 5.4 % Last Edit by Maddie Ching CMA on 03/04/24 13:50 Results Reviewed Results Reviewed: Laboratory Last Values Hgb A1c (Clinic) 5.4 % (4.0-6.0) 03/04/24 13:38 Coding Level of Care Code Est Pt Level 3 (51600) Diagnoses Abnormal laboratory test R89.9 Assessment & Plan Assessment & Plan (1) Abnormal laboratory test: Code(s): R89.9 - Unspecified abnormal finding in specimens from other organs, systems and tissues Plan: will reorder labs Orders: Orders AMB Hemoglobin A1c 03/04/24 Z13.9 - Encounter for screening, unspecified Lipid Panel Today Z13.220 - Encounter for screening for lipoid disorders [facility] [place]. Panel Fast Today Z13.9 - Encounter for screening, unspecified Complete Blood Count Auto Diff Today Z13.0 - Encounter for screening for diseases of the blood and blood-forming organs and certain disorders involving the immune mechanism Thyroid Stimulating Hormone Today Z13.29 - Encounter for screening for other suspected endocrine disorder Hemoglobin A1c Today R73.9 - Hyperglycemia, unspecified
== END 2024-03-04 14:21 | disposition home or self-care (01) ==
PROVIDERS: PCP Internal Medicine; Visit Provider Internal Medicine
DX: R89.9 Unspecified abnormal finding in specimens from other organs, systems and tissues (principal)

== ENCOUNTER → 2024-03-04 13:35 | Outpatient (BNVA) | payer BC, SELFPAY | PROVIDERS: PCP Internal Medicine; Visit Provider Internal Medicine | DX: R89.9 Unspecified abnormal finding in specimens from other organs, systems and tissues (principal) | CPT/HCPCS: 83036; 96127 ==

== ENCOUNTER 2024-03-07 06:25 | Outpatient (REF) | payer BC, SELFPAY ==
[2024-03-07 06:32] LABS: MANUAL DIFF FLAG NO
[2024-03-07 07:41] LABS: Basophils Percent Auto 0.7 % (0-2); Eosinophils Absolute Auto 0.1 X10*3/uL (0.0-0.4); Eosinophils Percent Auto 1.8 % (0-4); Hematocrit 44.7 % (37.0-47.0); Hemoglobin 15.2 g/dl (12.0-16.0); Imm Gran Abs Auto 0.02 X10*3/uL (0.00-0.03); Imm Gran Pct Auto 0.4 % (0.0-0.4); Lymphocytes Absolute Auto 1.5 X10*3/uL (1.2-4.9); Lymphocytes Percent Auto 27.3 % (20-40); Mean Corpuscular Hemoglobin 30.4 pg (27.0-33.0); Mean Corpuscular Volume 89.4 fL (80.0-98.0); Monocytes Absolute Auto 0.5 X10*3/uL (0.1-1.2); Monocytes Percent Auto 9.1 % (2-11); Neutrophils Absolute Auto 3.3 x10*3/uL (2.0-8.3); Neutrophils Percent Auto 60.7 % (45-73); Platelet Count 245 X10*3/uL (160-400); Red Cell Distribution Width 11.9 % (11.0-16.0); White Blood Count 5.5 X10*3/uL (4.8-10.8)
[2024-03-07 07:51] LABS: Estimated Average Glucose 111 mg/dL; Hemoglobin A1C 138.9256 umol/L; Hemoglobin A1c % 5.5 % (<6.0); Total Hemoglobin (HGBA1C) 3829.2533 umol/L
[2024-03-07 08:18] LABS: Alanine Aminotransferase 23 U/L (0-31); Albumin Level 4.3 g/dL (3.5-5.0); Alkaline Phosphatase 74 U/L (39-117); Anion Gap 14 (12-20); Aspartate Amino Transferase 23 U/L (5-31); Bilirubin Total 0.6 mg/dL (0.0-1.0); Blood Urea Nitrogen 9 mg/dL (9-16); Calcium 9.6 mg/dL (8.4-10.2); Carbon Dioxide 25 mmol/L (22-29); Chloride 107 mmol/L (96-108); Cholesterol 234 mg/dL (<200); Estimated Glomerular Filt Rate > 60; Glucose Fasting 92 mg/dL (60-99); HDL Cholesterol 70 mg/dL (>40); LDL Cholesterol Calculated 137 mg/dL (<100); Potassium 4.1 mmol/L (3.3-5.1); Sodium 142 mmol/L (135-145); Total Protein 7.1 g/dL (6.5-8.0); Triglycerides 135 mg/dL (<150)
[2024-03-07 08:36] LABS: Thyroid Stimulating Hormone 1.36 uIU/mL (0.32-4.0)
== END 2024-03-07 06:26 | disposition home or self-care (01) ==
LOC: HO.LAB 06:25
PROVIDERS: PCP Internal Medicine; Visit Provider Internal Medicine
DX: R73.9 Hyperglycemia, unspecified (principal); Z13.0 Encounter for screening for diseases of the blood and blood-forming organs and certain disorders involving the immune mechanism; Z13.30 Encounter for screening examination for mental health and behavioral disorders, unspecified; Z13.29 Encounter for screening for other suspected endocrine disorder; Z13.9 Encounter for screening, unspecified
CPT/HCPCS: 36415; 80053; 80061; 83036; 84443; 85025

== ENCOUNTER 2024-05-17 15:13 | Outpatient (AMB) | payer BC, SELFPAY ==
[2024-05-17 15:16] VITALS: BP 124/70; PULSE 88; O2SAT 99; BMI 22.8
--- NOTE | 2024-05-17 15:16 | A.OFFVIS_ITS ---
Vital Signs 05/17/24 15:16 Height 5 ft 8 in Weight 149 lb 14.629 oz BMI 22.8 BP 124/70 Blood Pressure Location Rt brachial Position Sitting Pulse 88 Pulse Source Pulse Oximeter Pulse Oximetry (%) 99 Oxygen Delivery Method Room Air Intake Visit Reasons: 6 month follow up Intake Note: ESTABLISHED PATIENT Reason; 6 mos FUV. Changes/concerns? [facility]errals to [facility] and [facility] Allergy placed @ [facility]. Would like to discuss PPI therapy. No longer taking nexium. Allergies kiwi Allergy (Severe, Verified 05/17/24 15:16) rash Penicillins [PENICILLINS] Allergy (Intermediate, Verified 05/17/24 15:16) SEVERE RASH Sulfa (Sulfonamide Antibiotics) [SULFA(SULFONAMIDE ANTIBIOTICS)] Allergy (In termediate, Verified 05/17/24 15:16) RASH HPI HPI 6 month follow up: Details: LAST VISIT Office Visit (Signed) - 11/24/23 15:41 Dysphagia Gastroesophageal reflux disease Chronic idiopathic constipation Plan Patient will be referred to operations and maintenance specialist. Discussed procedure and plan with Dr. Troncoso who recommend sending her to [facility] for manometry. Continue Nexium. Avoid dietary triggers and late night snacking. Staying upright for minimum 3 hours after meals discussed with patient. Patient will follow-up in 6 months, sooner on as needed basis. Patient is agreeable to this plan and verbalizes understanding of instructions. She was given the opportunity to ask questions and all questions answered. ? Thank you for allowing me to participate in her care Orders Referrals Gastroenterology Referral R13.12 Allergy & Immunology Referral R13.10, J31.0 Medications Refilled esomeprazole magnesium (Nexium) 40 mg PO DAILY 30 caps 5RF K21.9 TODAY'S VISIT Patient is here today for follow-up. Patient reports that she has been going under a lot of stress at home with personal issues.. Patient feels like the stress is not helping her with the way she feels at times. She continues to have occasional dysphagia, feels like she has to swallow couple times occasionally. Denies choking episodes. She continues to drink coffee throughout the day. Busy with work. Denies dyspepsia or odynophagia. She continues to take PPI daily. Patient denies melena, hematochezia, unintentional weight loss or ribbon like stools. Due for colonoscopy in May of 2026. [facility] Medical History EDD (obstructive sleep apnea) Chronic idiopathic constipation Gastroesophageal reflux disease Angiomyolipoma of right kidney Brain lesion Toe pain Mass of uterus Surgical History History of esophagogastroduodenoscopy (EGD) History of colonoscopy History of bunionectomy of right great toe Hx of toe surgery Hx of tubal ligation History of delivery Family History Father Leukemia Arthritis, rheumatoid Mother No problems noted. 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 Cognitive needs: No Hearing needs: No Vision needs: No Review of Systems Const Denies weight gain and Denies weight loss ENT Reports no additional complaints, Reports dysphagia and Denies odynophagia Card Reports no additional complaints Resp Reports no additional complaints GI Denies abdominal pain, Denies belching, Denies melena, Denies bloating, Denies change in bowel habits, Reports dysphagia, Denies excessive flatus, Denies dyspepsia, Denies heartburn, Denies diarrhea, Denies loose stools, Denies nausea, Denies odynophagia and Denies vomiting Reports no additional complaints Musc Reports no additional complaints Neuro Reports no additional complaints Psych Reports no additional complaints Endo Reports no additional complaints Physical Exam Vital Signs: Last Vital Signs Pulse 88 05/17/24 15:16 BP 124/70 05/17/24 15:16 Pulse Ox 99 05/17/24 15:16 Oxygen Delivery Method Room Air 05/17/24 15:16 BMI result Body Mass Index 22.8 Const General: healthy appearing, no acute distress and well developed Nutritional Appearance: well nourished Orientation/consciousness: patient oriented x3 Resp Effort & Inspection: normal respiratory effort, able to speak in complete sentences, no tracheal deviation and symmetric chest movement Auscultation: clear to auscultation bilaterally Cardio Rate: regular rate Heart sounds: S1 normal heart sound present and S2 normal heart sound present GI Inspection: Yes normal to inspection and No distended Palpation (GI): Soft to palpation, not firm, nontender and No hepatosplenomegaly present Auscultation: normal bowel sounds General: Yes no CVA tenderness Back/Spine/Pelvis Back: no CVA tenderness Skin General skin exam: elasticity normal, turgor normal and dry skin Neuro General: patient oriented x3 Psych Appearance: grossly normal Mental Status: mental status grossly normal Assessment & Plan Assessment & Plan (1) Dysphagia: Code(s): R13.10 - Dysphagia, unspecified Category: Medical Qualifiers: Dysphagia type: oropharyngeal phase Qualified Code(s): R13.12 - Dysphagia, oropharyngeal phase (2) Gastroesophageal reflux disease: Code(s): K21.9 - Gastro-esophageal reflux disease without esophagitis Category: Medical Qualifiers: Esophagitis presence: with esophagitis Esophagitis bleeding: without hemorrhage Qualified Code(s): K21.00 - Gastro-esophageal reflux disease with esophagitis, without bleeding (3) Chronic idiopathic constipation: Code(s): K59.04 - Chronic idiopathic constipation Category: Medical Plan Patient will continue PPI. Omeprazole sent to pharmacy. Avoid dietary triggers and late night snacking. Staying upright for minimum 3 hours after meals discussed with patient. Increase fluid intake and activity to promote better bowel motility. Follow-up in 1 year. Patient will call our office if her symptoms will get worse. She is agreeable to this plan and verbalizes unde rstanding of instructions. She was given the opportunity to ask questions and all questions answered. Thank you for allowing me to participate in her care Medications: New omeprazole 20 mg PO DAILY 30 caps 3RF K21.9 - Gastro-esophageal reflux disease without esophagitis Coding Level of Care Code Est Pt Level 3 (59517) Diagnoses Oropharyngeal dysphagia R13.12 Dysphagia type: oropharyngeal phase Gastroesophageal reflux disease with esophagitis without hemorrhage K21.00 Esophagitis presence: with esophagitis Esophagitis bleeding: without hemorrhage Chronic idiopathic constipation K59.04 Time Spent (min) 25 Comment 15 minutes spent with patient and additional 10 minutes spent reviewing her janay rds
== END 2024-05-17 16:04 | disposition home or self-care (01) ==
PROVIDERS: PCP Internal Medicine; Visit Provider Nurse Practitioner Family
DX: R13.12 Dysphagia, oropharyngeal phase (principal); K21.00 Gastro-esophageal reflux disease with esophagitis, without bleeding; K59.04 Chronic idiopathic constipation
CPT/HCPCS: 99213

== ENCOUNTER → 2024-05-17 15:13 | Outpatient (BNVA) | payer BC, SELFPAY | PROVIDERS: PCP Internal Medicine; Visit Provider Nurse Practitioner Family ==

== ENCOUNTER 2024-06-03 13:27 | Outpatient (REF) | payer BC, SELFPAY ==
--- NOTE | ~2024-06-03 | US_ITS ---
CLINICAL HISTORY: N20.0 - Calculus of kidney US Renal Comparison: 12/10/2023 Findings: Right kidney normal size with increased echotexture, 10.0 cm length. Left kidney normal size with increased echotexture, 10.0 cm length. There is a right renal cortical echogenic 0.5 x 0.4 x 0.3 cm lesion, likely angiomyolipoma. No hydronephrosis of either kidney. Normal color Doppler IMPRESSION: 1. Findings suggesting chronic renal disease. Correlate clinically. 2. Left renal cortical angiomyolipoma This document has been electronically signed by: Jatin Frank MD on 06/04/2024 09:27:03
--- OUTSIDE RECORDS SUMMARY | 2024-06-03 15:12 | XMS_ITS | Clinical Summary ---
Author Organization [facility] Address [address] [place] [address] Phone Care Team Providers Care Dairy Associate Name Role Phone Kuldeep Marie MD Primary Care Provider [phone] Allergies Active Allergy Reactions Criticality Noted Date Comments Penicillins Hives High 12/17/2020 Sulfa Antibiotics 12/17/2020 Medications ferrous sulfate 325 (65 Fe) MG tablet iron Active Cholecalciferol (Vitamin D) 25 MCG (1000 UT) tablet Vitamin D Active cyanocobalamin (VITAMIN B-12) 100 MCG tablet Vitamin B12 Act rossy acetaminophen (TYLENOL) 325 MG tablet Take 325 mg by mouth every 6 (six) hours if needed for mild pain Active ibuprofen (ADVIL,MOTRIN) 200 MG tablet Take 400 mg by mouth every 6 (six) hours if needed for mild pain Active Active Problems Problem Noted Date Diagnosed Date Abdominal pain - cause unknown 12/17/2020 Unexplained weight loss 12/17/2020 Disorder of thyroid, not otherwise specified 01/2021 Angiomyolipoma of kidney 12/17/2020 Immunizations Name Administration Dates Next Due Influenza, Unspecified 07/14/2019 Family History Relation Status Comments Father Social History Tobacco Use Types Packs/Day Years Used Date Smoking Tobacco: Never Smokeless Tobacco: Never Comments Unknown Sex and Gender Information Value Date Recorded Sex Assigned at Not on file Legal Sex Female 4:29 PM EDT Gender Identity Not on file Sexual Orientation Not on file Last Filed Vital Signs Vital Sign Reading Time Taken Comments Blood Pressure 88/56 12/17/2020 2:31 PM EDT Pulse 82 12/17/2020 2:31 PM EDT Temperature - - Respiratory Rate - - Oxygen Saturation 98% 12/17/2020 2:31 PM EDT Inhaled Oxygen Concentration - - Weight 62.1 kg (137 lb) 12/17/2020 2:31 PM EDT Height 172.7 cm (5' 8 ) 12/17/2020 2:31 PM EDT Body Mass Index 20.83 12/17/2020 2:31 PM EDT Plan of Treatment Health Maintenance Due Date Last Done Comments Breast Cancer Screening 1970 Hepatitis B Vaccine (1 of 3 - 19+ 3-dose series) 01/17/1991 Colorectal Cancer Screening: Annual FOBT 01/17/2021 Colorectal Cancer Screening: Colonoscopy 01/17/2021 Colorectal Cancer Screening: Sigmoidoscopy 01/17/2021 Influenza Vaccine (#1) 2024 07/14/2019 Pneumococcal Vaccine: Pediat rics (0 to 5 Years) and At-Risk Patients (6 to 64 Years) Aged Out No longer eligi ble based on patient's age to complete this topic Insurance [facility] Care Teams Dairy Associate Relationship Specialty Start Date End Date Kuldeep Marie MD [id number] [place], [place] PCP - General Internal Medicine 12/13/20
== END 2024-06-03 13:28 | disposition home or self-care (01) ==
LOC: HO.US 13:27
PROVIDERS: PCP Internal Medicine; Visit Provider Nurse Practitioner Family
DX: N20.0 Calculus of kidney (principal)
CPT/HCPCS: 76775

== ENCOUNTER → 2024-06-03 13:29 | Outpatient (BNV) | payer BC, SELFPAY | PROVIDERS: PCP Internal Medicine; Visit Provider Specialist | DX: D17.71 Benign lipomatous neoplasm of kidney (principal) | CPT/HCPCS: 76775 ==

== ENCOUNTER 2024-06-13 06:36 | Outpatient (REF) | payer BC, SELFPAY ==
[2024-06-13 07:19] LABS: Cholesterol 204 mg/dL (<200); HDL Cholesterol 51 mg/dL (>40); LDL Cholesterol Calculated 130 mg/dL (<100); Triglycerides 115 mg/dL (<150)
== END 2024-06-13 06:37 | disposition home or self-care (01) ==
LOC: HO.LAB 06:36
PROVIDERS: PCP Internal Medicine; Visit Provider Internal Medicine
DX: Z13.220 Encounter for screening for lipoid disorders (principal)
CPT/HCPCS: 36415; 80061

== ENCOUNTER 2024-06-20 13:33 | Outpatient (AMB) | payer BC, SELFPAY ==
--- NOTE | 2024-06-20 14:07 | MHC.OFFVIS ---
Intake Visit Reasons: 6m/US(set) Intake Note: Patient presents today for follow up visit on: renal cyst, angiolipoma right kidney, recurrent uti, and ultrasound results Imaging Completed: 06/03/24 Urology Medications: none Blood thinner: none Rn Birthing Required: No Accompanied by: Self / Same As Patient Allergies kiwi Allergy (Severe, Verified 06/20/24 14:48) rash Penicillins [PENICILLINS] Allergy (Intermediate, Verified 06/20/24 14:48) SEVERE RASH Sulfa (Sulfonamide Antibiotics) [SULFA(SULFONAMIDE ANTIBIOTICS)] Allergy (Intermediate, Verified 06/20/24 14:48) RASH Medication List - Last Reconciled 06/20/24 by SAAD Christina multivitamin 1 tab PO DAILY HPI Comments Details: Gina is a very pleasant 54 year old female patient of Dr. Marie. She has a past medical history of brain lesion, chronic idiopathic constipation, GERD, and a mass in her uterus that was removed December of 2020. She presents to the office today for follow-up of her lower urinary tract symptoms and angiolipoma. In discussion with the patient today she reports to be doing and feeling well. Recent renal imaging results reviewed with the patient today however we discussed potential for addendum in results as impression reads left angiolipoma however patient with right-sided 0.5 cm angiolipoma. We discussed stability in angiolipoma. Imaging also notes question of chronic renal disease. However most recent BUN and creatinine results reviewed with the patient today BUN 03/03 9 Creatinine 03/03 0.71 She discusses at length her anxiety regarding her health and is requesting referral to Nephrology for further assessment evaluation. She does endorse ongoing intermittent issues with low-back pain and bladder pressure. In office urinalysis results reviewed with the patient today. PH 5.5. She does bring with her to the office today her coffee. We discussed at length the importance of adequate hydration. We discussed bladder triggers/irritants. Previous workup has included a MRI 12/31 to further assess renal lesion which was also suggestive of angiolipoma. Patient also with a history of in office cystoscopy that noted generalized erythema noted to the bladder wall at which time recommendations were made to increase water intake as patient discusses working at [employer] and drinks coffee frequently. She discusses her daughters appointment today for large ovarain cyst size of a grapefruit . She otherwise denies any other issues or concerns at this time. [facility] Medical History EDD (obstructive sleep apnea) Chronic idiopathic constipation Gastroesophageal reflux disease Angiomyolipoma of right kidney Brain lesion Toe pain Mass of uterus Surgical History History of esophagogastroduodenoscopy (EGD) History of colonoscopy History of bunionectomy of right great toe Hx of toe surgery Hx of tubal ligation History of delivery Family History Father Leukemia Arthritis, rheumatoid Mother No problems noted. 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 Cognitive needs: No Hearing needs: No Vision needs: No Review of Systems Const All systems reviewed & are unremarkable except as noted in HPI and below Eyes Reports no additional complaints ENT Reports no additional complaints Card Reports no additional complaints Resp Reports no additional complaints GI Reports as per HPI Reports as per HPI Neuro Reports as per HPI Endo Reports no additional complaints Physical Exam Const General: cooperative, healthy appearing, comfortable, no acute distress, well developed, alert and awake Orientation/consciousness: patient oriented x3 Limitations: no limitations HEENT Head: Yes normal to inspection, Yes normocephalic and Yes atraumatic Ears: hearing grossly normal bilaterally Eyes General: appearance normal, both eyes and all related structures Neck Neck: Yes normal visual inspection and Yes trachea midline Chest Chest palpation & inspection: normal inspection of the chest Resp Effort & Inspection: normal respiratory effort and able to speak in complete sentences Cardio Rate: regular rate GI Inspection: Yes normal to inspection General: Yes no CVA tenderness Back/Spine/Pelvis Back: no CVA tenderness Skin General skin exam: no rashes or lesions noted Neuro General: patient oriented x3 Extrem General: Yes normal to inspection Psych Appearance: grossly normal and well kempt Mental Status: mental status grossly normal Speech and movement: Normal speech and movement present and Clear speech present Affect: normal affect Attitude: cooperative Thought process: Normal thought process present Thought content: Normal thought content present Insight: Fair insight present (Psych) Judgement: Fair judgement present (Psych) Results AMB Urinalysis, Automated UA Leukoctes 0 Piter/uL Last Edit by [employer] on 06/20/24 14:27 UA Nitrite Last Edit by [employer] on 06/20/24 14:27 UA Urobilinogen 0.2 mg/dL Last Edit by [employer] on 06/20/24 14:27 UA Protein 15 mg/dL Last Edit by [employer] on 06/20/24 14:27 UA pH 5.5 Last Edit by [employer] on 06/20/24 14:27 UA Blood 10 Odnny/uL Last Edit by [employer] on 06/20/24 14:27 UA Specific Crozier 1.025 Last Edit by [employer] on 06/20/24 14:27 UA Ketone Last Edit by [employer] on 06/20/24 14:27 UA Bilirubin 0 mg/dL Last Edit by [employer] on 06/20/24 14:27 UA Glucose 0 mg/dL Last Edit by [employer] on 06/20/24 14:27 Results Reviewed Results Reviewed: Laboratory Last Values Urine pH (Auto) 5.5 06/20/24 14:09 Specific Crozier (Auto) 1.025 06/20/24 14:09 Urine Protein (Auto) 15 mg/dL 06/20/24 14:09 Glucose (UA)(Auto) 0 mg/dL 06/20/24 14:09 Urine Blood (Auto) 10 Donny/uL 06/20/24 14:09 Urine Bilirubin (Auto) 0 mg/dL 06/20/24 14:09 Urine Urobilinogen (Auto) 0.2 mg/dL 06/20/24 14:09 Leukocyte Esterase (Auto) 0 Piter/uL 06/20/24 14:09 Date of Service: 06/03/24 US Renal Comparison: 12/10/2023 Findings: Right kidney normal size with increased echotexture, 10.0 cm length. Left kidney normal size with increased echotexture, 10.0 cm length. There is a right renal cortical echogenic 0.5 x 0.4 x 0.3 cm lesion, likely angiomyolipoma. No hydronephrosis of either kidney. Normal color Doppler IMPRESSION: 1. Findings suggesting chronic renal disease. Correlate clinically. 2. Left renal cortical angiomyolipoma Assessment & Plan Assessment & Plan (1) Renal disease: Code(s): N28.9 - Disorder of kidney and ureter, unspecified Category: Medical (2) Angiolipoma of right kidney: Code(s): D17.71 - Benign lipomatous neoplasm of kidney Category: Medical Plan In office urinalysis results reviewed with the patient today; as noted above. Recent renal imaging results reviewed with the patient today; Call to [phone] to discuss imaging and question of addendum. Will refer to Nephrology We discussed at length the importance of adequate hydration relation to lower urinary tract symptoms. We discussed bladder triggers/irritants. Will continue with surveillance monitoring. Will obtain renal ultrasound in 6 months. Follow-up in 6 months with imaging to be completed prior; or sooner with any issues, concerns, and or questions. Orders: Orders AMB Urinalysis Automated Today Z13.9 - Encounter for screening, unspecified US renal BI 6 Months D17.71 - Benign lipomatous neoplasm of kidney Referrals Nephrology Referral N28.9 - Disorder of kidney and ureter, unspecified Patient Instructions: The patient had an opportunity to ask questions regarding the treatment plan. All questions were answered. Physical exam, labs, and imaging were discussed and reviewed in detail. As well as risks, benefits, and discussion of treatment choices. No major barriers to understanding were identified. The patient expressed understanding and agreement with the above treatment plan. The patient was made aware they should contact our office by phone for worsening of their current condition, the appearance of new symptoms, or with any questions or concerns. Compliance is encouraged with any medications and follow up testing that is ordered. It is a privilege to be allowed the opportunity to participate in? your urological care.? Again, if you have any questions or concerns If you have any questions or concerns please do not hesitate to contact me. The office is [phone]. This note is constructed using voice recognition software. While every effort has been made to ensure accuracy digital project manager errors may have been included. Yours sincerely, Melany Rock, HYPOID GEAR GENERATOR-BC Coding Level of Care Code Est Pt Level 3 (34386) Complex EM visit Add On G2211 Diagnoses Renal disease N28.9 Angiolipoma of right kidney D17.71
== END 2024-06-20 15:24 | disposition home or self-care (01) ==
PROVIDERS: PCP Internal Medicine; Visit Provider Nurse Practitioner Family
DX: N28.9 Disorder of kidney and ureter, unspecified (principal); D17.71 Benign lipomatous neoplasm of kidney; Z13.9 Encounter for screening, unspecified
CPT/HCPCS: 99213

== ENCOUNTER → 2024-06-20 13:33 | Outpatient (BNVA) | payer BC, SELFPAY | PROVIDERS: PCP Internal Medicine; Visit Provider Nurse Practitioner Family | DX: N28.9 Disorder of kidney and ureter, unspecified (principal); D17.71 Benign lipomatous neoplasm of kidney | CPT/HCPCS: 81003 ==

== ENCOUNTER 2024-07-07 15:17 | Outpatient (AMB) | payer BC, SELFPAY ==
--- NOTE | 2024-07-07 15:17 | HO.NEPHOV_ITS ---
Vital Signs 07/07/24 15:18 Height 5 ft 8 in BP 90/56 L Blood Pressure Location Lt brachial Position Sitting Pulse 95 Pulse Source Pulse Oximeter Pulse Oximetry (%) 96 Oxygen Delivery Method Room Air Intake Visit Reasons: INP: Disorder of kidney and ureter Wealth Management Consultant Required: No Accompanied by: Self / Same As Patient Allergies kiwi Allergy (Severe, Verified 07/07/24 15:19) rash Penicillins [PENICILLINS] Allergy (Intermediate, Verified 07/07/24 15:19) SEVERE RASH Sulfa (Sulfonamide Antibiotics) [SULFA(SULFONAMIDE ANTIBIOTICS)] Allergy (Intermediate, Verified 07/07/24 15:19) RASH HPI Comments Details: Gina is a 54-year-old woman who has been enjoying reasonably good health. She has been referred for evaluation of angiomyolipoma of the kidneys. She has had multiple images for the last 6 years. The imaging studies reveal stable angiomyolipoma. She has not had any hematuria. History of renal stone in the past. [facility] Medical History EDD (obstructive sleep apnea) Chronic idiopathic constipation Gastroesophageal reflux disease Angiomyolipoma of right kidney Brain lesion Toe pain Mass of uterus Surgical History History of esophagogastroduodenoscopy (EGD) History of colonoscopy History of bunionectomy of right great toe Hx of toe surgery Hx of tubal ligation History of delivery Family History Father Leukemia Arthritis, rheumatoid Mother No problems noted. 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 Lungs entry equal no rales. Heart S1-S2 heard no gallop or rub. Abdomen soft nontender. Neuro alert awake oriented. No asterixis. Extremities no edema. Results Reviewed Nephrology Results: Hgb 15.2 g/dl (12.0-16.0) 03/07/24 WBC 5.5 X10*3/uL (4.8-10.8) 03/07/24 Plt Count 245 X10*3/uL (160-400) 03/07/24 Sodium 142 mmol/L (135-145) 03/07/24 Potassium 4.1 mmol/L (3.3-5.1) 03/07/24 Chloride 107 mmol/L (96-108) 03/07/24 Carbon Dioxide 25 mmol/L (22-29) 03/07/24 BUN 9 mg/dL (9-16) 03/07/24 Creatinine 0.71 mg/dL (0.5-1.4) 03/07/24 Calcium 9.6 mg/dL (8.4-10.2) 03/07/24 Renal US 06/04/24 Assessment & Plan Assessment & Plan (1) Angiolipoma of right kidney: Code(s): - Benign lipomatous neoplasm of kidney Category: Medical Plan 54-year-old woman with angiomyolipoma. Ultrasound reviewed right renal cortical echogenic 0.5 x 0.4 x 0.3 cm lesion, likely angiomyolipoma. Based on previous imaging this lesion appears stable. At the present time there is no further imaging is needed. We can monitor this periodically. History of renal stone encouraged her to stay on low-sodium diet increase p.o. fluid intake. She has mild hyperlipidemia encouraged to follow up with the PCP. Orders: Orders UA and rflx microscopic 6 Months - Benign lipomatous neoplasm of kidney Basic Metabolic Panel 6 Months - Benign lipomatous neoplasm of kidney Total Protein Urine Random 6 Months D17.71 - Benign lipomatous neoplasm of kidney Creatinine Urine 6 Months D17.71 - Benign lipomatous neoplasm of kidney Coding Level of Care Code New Pt Level 4 (33669) Diagnoses Angiolipoma of right kidney D17
[2024-07-07 15:18] VITALS: BP 90/56; PULSE 95; O2SAT 96
--- OUTSIDE RECORDS SUMMARY | 2024-07-07 18:37 | XMS_ITS | Clinical Summary ---
Author Organization [facility] Address [address] [place] [address] Phone Care Team Providers Care Building Supplies Salesperson Retail Name Role Phone Kuldeep Marie MD Primary Care Provider [phone] Allergies Active Allergy Reactions Criticality Noted Date [...] patient's age to complete this topic Insurance [facility] Care Teams Building Supplies Salesperson Retail Relationship Specialty Start Date End Date Kuldeep Marie MD [id number] [place], [place] PCP - General Internal Medicine 12/13/20
== END 2024-07-07 15:43 | disposition home or self-care (01) ==
PROVIDERS: PCP Internal Medicine; Referring Provider Nurse Practitioner Family; Visit Provider Internal Medicine Hypertension Specialist
DX: D17.71 Benign lipomatous neoplasm of kidney (principal)
CPT/HCPCS: 99204

== ENCOUNTER 2024-08-05 13:25 | Outpatient (REF) | payer BC, SELFPAY ==
[2024-08-05 14:27] LABS: Appearance Urine Clear; Color Urine Yellow; Glucose Urine UA Negative (Negative); Leukocyte Esterase Urine Negative (Negative); Nitrite Urine Negative (Negative); Specific Gravity - Urine <= 1.005 (1.005-1.025); Urine Blood Negative (Negative); Urine Ketones Negative (Negative); Urine Protein Negative (Neg-Trace)
[2024-08-05 14:32] LABS: Bacteria Urine None Seen (None Seen); Hyaline Casts Urine 0-2 /LPF (0-2); RBC Urine 0-2 /HPF (0-2); Squamous Epithelial Cell Urine 0-2 /HPF (0-2); WBC Urine 0-5 /HPF (0-5)
== END 2024-08-05 13:26 | disposition home or self-care (01) ==
LOC: HO.LAB 13:25
PROVIDERS: PCP Internal Medicine; Visit Provider Nurse Practitioner Family
DX: N39.0 Urinary tract infection, site not specified (principal); R10.2 Pelvic and perineal pain
CPT/HCPCS: 81001; 87086

== ENCOUNTER 2024-08-17 09:05 | Outpatient (AMB) | payer BC, SELFPAY ==
--- NOTE | 2024-08-17 09:08 | MHC.PC.OV ---
Vital Signs 08/17/24 09:09 Height 5 ft 8 in Weight 146 lb 3.2 oz BMI 22.2 BP 108/60 Blood Pressure Location Lt brachial Position Sitting Pulse 80 Pulse Source Pulse Oximeter Temp 97.3 F Temp Source Temporal Artery Scan Pulse Oximetry (%) 97 Oxygen Delivery Method Room Air Intake Visit Reasons: JEFF Dr Marie/ swollen rt knee Room Inspector Required: No Accompanied by: Self / Same As Patient Allergies kiwi Allergy (Severe, Verified 08/17/24 09:36) rash Penicillins [PENICILLINS] Allergy (Intermediate, Verified 08/17/24 09:36) SEVERE RASH Sulfa (Sulfonamide Antibiotics) [SULFA(SULFONAMIDE ANTIBIOTICS)] Allergy (Intermediate, Verified 08/17/24 09:36) RASH Medication List - Last Reconciled 08/17/24 by Juliana Hendricks MD No Known Home Meds Tobacco use date assessed: 08/17/24 Dental Screening Dental Screen Date: 08/17/24 Did you have a dental visit in the last 12 months?: Yes Did you have a dental problem in the last 6 months where you did not have access to dental care?: No Was dental information given to patient?: Patient has dentist HPI HPI Comments History of Present Illness Details The patient is a 54-year-old female presenting with right knee swelling and pain, which started about a week ago. The right leg swells, especially by the afternoon, and she describes the pain as throbbing and occasionally burning in nature, with some radiation towards the right ankle. Pain is primarily under the kneecap and increases when bending or flexing the knee. There?s no history of trauma to the knee. Concurrently, she manages mild hyperlipidemia noted in June with recent calculations indicating a low cardiovascular risk. The patient describes an episode of depression linked to recent job loss, resulting in substantial changes in her routine and feelings of loneliness, but denies suicidal thoughts. [facility] Medical History (Updated 08/17/24 @ 12:35 by Juliana Hendricks MD) EDD (obstructive sleep apnea) Chronic idiopathic constipation Gastroesophageal reflux disease Angiomyolipoma of right kidney Brain lesion Toe pain Mass of uterus Surgical History History of esophagogastroduodenoscopy (EGD) History of colonoscopy History of bunionectomy of right great toe Hx of toe surgery Hx of tubal ligation History of delivery Family History Father Leukemia Arthritis, rheumatoid Mother No problems noted. 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 1. Little interest or pleasure in doing things: not at all 2. Feeling down, depressed, or hopeless: nearly every day 3. Trouble falling or staying asleep, or sleeping too much: nearly every day 4. Feeling tired or having little energy: nearly every day 5. Poor appetite or overeating: nearly every day 6. Feeling bad about yourself - or that you are a failure or have let yourself or your family down: nearly every day 7. Trouble concentrating on things, such as reading the newspaper or watching television: several days 8. Moving or speaking so slowly that other people could have noticed. Or the opposite - being so fidgety or restless that you have been moving around a lot more than usual: nearly every day 9. Thoughts that you would be better off or of hurting yourself in some way: not at all Total score: 19 Depression Screening Interpretation: Positive (no suicidal thoughts) Depression Screening Follow-up: Existing condition and Follow-up Visit Requested Depression Screening Done: Yes 13809 - PHQ-9 Billing: Yes Source: Developed by Drs. Emerson Garcia, Mojgan Cruz, Florentino Hall and colleagues, with an educational steph from [employer]. Thrive Questionnaire Date Thrive assessed: 08/17/24 I am a: Patient What is your living situation today?: I have a steady place to live Within the past 12 months, did the food you bought not last and you didn't have the money to get more?: Never true Within the past 12 months, did you worry whether your food would run out before you got money to buy more?: Never true Do you have trouble paying for medicines?: No Do you have trouble getting transportation to medical appointments?: No Do you have trouble paying your heating and electricity bill?: No Do you have trouble taking care of your child, family member or friend?: No Do you have trouble with day-to-day activities such as bathing, preparing meals, shopping, managing finances, etc.?: No Are you currently unemployed and looking for a job?: No Are you interested in more education?: No Please select the resources that you would like help with: None Currently or been in a relationship where the following occur: No concerns reported THRIVE Score: 0 AUDIT C Alcohol Use Questionnaire (AUDIT-C) 1. How often do you have a drink containing alcohol?: Never Total Score: 0 Score Reviewed/Action Taken: No ERIC-7 AMB Questionnaire ERIC-7 Date ERIC - 7 assessed: 08/17/24 Feeling nervous, anxious, or on edge: 0 = Not at all Not being able to stop or control worryin = Not at all Worrying too much about different things: 0 = Not at all Trouble relaxin = Not at all Being so restless that it is hard to sit still: 0 = Not at all Becoming easily annoyed or irritable: 0 = Not at all Feeling afraid as if something awful might happen: 0 = Not at all Total ERIC-7 score (0-4 normal; 5-9 mild; 10-14 moderate; 15-21 severe): 0 Source: Developed by Drs. Emerson Garcia, Mojgan Cruz, Florentino Hall and colleagues, with an educational steph from [employer]. ERIC-7 Assessment Billing ERIC-7 Assessment Tool: ERIC-7 Assessment 08200 Review of Systems Const All systems reviewed & are unremarkable except as noted in HPI and below Card Denies chest pain at rest, Denies chest pain with activity, Denies edema, Denies irregular heart rhythm, Denies claudication, Denies dyspnea, Denies dyspnea on exertion, Denies orthopnea, Denies paroxysmal nocturnal dyspnea and Denies slow heart rate Resp Denies cough, Denies dyspnea and Denies dyspnea on exertion GI Denies abdominal pain, Denies change in bowel habits, Denies excessive flatus, Denies nausea and Denies vomiting Denies urinary incontinence, Denies urinary hesitancy and Denies urinary urgency Musc Denies abnormal gait, Denies atrophy, Denies deformity, Reports arthralgias and Denies limited range of motion Skin/Breast Denies bleeding lesions, Denies changing lesions and Denies rash Neuro Denies abnormal gait and Denies lack of coordination Physical exam (Primary Care) Vital Signs: Last Vital Signs Temp 97.3 F 08/17/24 09:09 Pulse 80 08/17/24 09:09 BP 108/60 08/17/24 09:09 Pulse Ox 97 08/17/24 09:09 Oxygen Delivery Method Room Air 08/17/24 09:09 BMI result Body Mass Index 22.2 Tobacco/Smoking Status: Tobacco use Status Tobacco use date assessed 08/17/24 08/17/24 09:21 Patient Tobacco Use Status Never used Tobacco 08/17/24 09:41 Tobacco use type 08/17/24 09:21 e-Cigarette/Vaping Use Never Used 08/17/24 09:41 PHQ-9: PHQ-9 Score PHQ-9: Total score 19 08/17/24 09:39 Depression Screening Interpretation: Positive (no suicidal thoughts) Depression Screening Follow-up: Existing condition and Follow-up Visit Requested Thrive Assessment: Date of Thrive Assessment Date Thrive assessed 08/17/24 08/17/24 09:21 Currently or been in a relationship where the following occur: No concerns reported Resp Effort & Inspection: normal respiratory effort Auscultation: clear to auscultation bilaterally Cardio Jugular venous distension: no JVD Rate: regular rate Rhythm: regular rhythm Heart sounds: S1 normal heart sound present and S2 normal heart sound present Extrem Other: Right knee tenderness, positive right Homans sign General: Yes full ROM Psych Appearance: grossly normal Coding Level of Care Code Est Pt Level 4 (20965) Complex EM visit Add On G2211 Diagnoses Moderate major depression, single episode F32.1 Right knee pain M25.561 Right leg pain M79.604 Pure hypercholesterolemia E78.00 Additional Codes ERIC-7 Assessment Billing - ERIC-7 Assessment Tool: ERIC-7 Assessment 90364 ([id number]) PHQ-9 - 65506 - PHQ-9 Billing: Yes ([id number]) Time Spent (min) 22 Assessment & Plan Assessment & Plan (1) Moderate major depression, single episode: Code(s): F32.1 - Major depressive disorder, single episode, moderate Category: Medical (2) Right knee pain: Code(s): M25.561 - Pain in right knee Category: Medical (3) Right leg pain: Code(s): M79.604 - Pain in right leg Category: Medical (4) Pure hypercholesterolemia: Comment: No need for medication due to [place] risk score of 0.6% Code(s): E78.00 - Pure hypercholesterolemia, unspecified Category: Medical Plan For the right knee swelling and pain, I intend to obtain an x-ray and an ultrasound today to rule out a possible clot and assess structural causes of pain. We?ll monitor the mild hyperlipidemia, with a follow-up fasting lab test during her March physical. Her depression, attributed to recent job loss, does not require immediate intervention due to the absence of suicidal thoughts, but I encourage positive social interactions and evaluating lifestyle changes. Patient was informed and verbally consented to the use of an ambient scribe for clinic note documentation during this visit. I discussed with the patient the possibility of a clot in her right leg as indicated by the swelling and pain, prompting the need for immediate diagnostic imaging. We reviewed the results of her previous blood work, including her cholesterol and sugar levels, and discussed plans to reevaluate in March. I addressed her depression by recognizing the impact of her recent job loss and provided reassurance that her mental state is understandable given the circumstances and doesn't currently necessitate medication or counseling intervention. I emphasized the value of maintaining social connections and considering lifestyle modifications that align with her health status. Orders: Orders Comprehensive [place]. Panel Fast 7 Months G57.93 - Unspecified mononeuropathy of bilateral lower limbs US venous duplex LE RT Today M79.604 - Pain in right leg XR knee RT 2V Today M25.561 - Pain in right knee Lipid Panel 7 Months E78.5 - Hyperlipidemia, unspecified Patient Instructions: - Proceed to the imaging center as discussed to obtain an x-ray and ultrasound for the right knee. - Continue monitoring your mood and mental health, seek social support, and engage in activities you enjoy. - Maintain healthy dietary and lifestyle habits for cholesterol management. - Follow up for physical examination and fasting labs in March. - Seek medical attention if you experience increased pain, swelling, or new symptoms in the right leg.
[2024-08-17 09:09] VITALS: BP 108/60; PULSE 80; TEMP 36.3; O2SAT 97; BMI 22.2
--- OUTSIDE RECORDS SUMMARY | 2024-08-17 09:37 | XMS_ITS | Clinical Summary ---
Author Organization [facility] Address [address] [place] [address] Phone Care Team Providers Care Sash Clamp Operator Name Role Phone Kuldeep Marie MD Primary Care Provider [phone] Allergies Active Allergy Reactions Criticality Noted Date [...] Colorectal Cancer Screening: Sigmoidoscopy 01/17/2021 Influenza Vaccine (Season Ended) 2025 07/14/19 20 Pneumococcal Vaccine: Pediat rics (0 to 5 Years) and At-Risk Patients (6 to 64 Years) Aged Out No longer eligi ble based on patient's age to complete this topic Insurance [facility] Care Teams Sash Clamp Operator Relationship Specialty Start Date End Date Kuldeep Marie MD [id number] [place], [place] PCP - General Internal Medicine 12/13/20
--- OUTSIDE RECORDS SUMMARY | 2024-08-17 09:37 | XMS_ITS | Data Portability ---
Author Organization [place] - [facility], [facility] Address [address] [place] [address] Care Team Providers Care Hot Box Checker Name Role Phone JAKE JOSHUA Primary Care Provider [phone] Assessment No assessment recorded. Plan of Treatment Reminders Order Date Submit Date Provider Last Modified By Organization Details Last Modified Time Details Appointments None recorded. Lab None recorded. Referral None recorded. Procedures None recorded. Surgeries Dequervai n's release (SURG) 2024 025 [email or web address] [facility], [address], [place], [address], 5 13:28:33 Imaging XR, elbow, 3 or more view - rm 118 3v 2023 024 [email or web address] [facility], [address], [place], [address], 4 15:20:56 Medication Orders triamcino lone acetonide 40 mg/mL suspensio n for injection 2023 024 mmolpelton Not available 4 16:14:51 Patient TargetsNo targets recorded. Patient InstructionsNo instructions recorded. Reason for Referral None Reported. Results Created Date Observation Date Name Description Value Unit Range Abnormal Flag Note LastModifiedBy Organization Detail LastModifiedTime 12/04/19 24 12/04/2023 XR, elbow , 3 or more view [email or web address] ?Encry pted=s hAaTro YD8dLq bEUv6g %2BXZw aYqtaq 0bqfl% 2Fg9IQ a4ajBk vP9nXo QUaueC m3YtLR FvZlgJ JJ8mAn HZtai3 3v7013 AC0Koa 3uCVaX eUC8mr 84%3D INTERFACE [facility] [address], [place], [address], 12/04/2023 13:11:12 12/04/19 24 12/04/2023 XR, elbow , 3 or more view [email or web address] ?Encry pted=s hAaTro YD8dLq bEUv6g %2BXZw aYqtaq 0bqfl% 2Fg9IQ a4ajBk vP9nXo QUaueC m3YtLR FvZlgJ JJ8mAn HZtai3 4o6447 AC0Koa 3uCVaX eUC8mr 84%3D INTERFACE [facility] [address], [place], [address], 12/04/2023 13:11:14 Result Notes None recorded. Problems Name Problem SNOMED Code Status Onset Date Resolution Date Notes Provider Name and Address Organization Details Recorded Time Impingement syndrome of left shoulder region 4506048397257 04 Active 2023 Deborah mehta PA-C [address], [place], [address], [facility] 4 16:13:44 Problem Notes None recorded. Procedures Surgical History Date Name Laterality Status Provider Name and Address Organization Details Recorded Time 4 JZOlecranon Bursa completed Maricruz Zhao PA-C [address], [place], [address], [facility] 12/09/2023 15:49:19 4 JZOlecranon Bursa completed Maricruz Zhao PA-C [address], [place], [address], [facility] 12/04/2023 13:58:04 4 Shoulder Joint Asp & Inj, Bilateral w/US Kenalog 40 mg/1 cc completed Deborah De La Cruz PA-C [address], [place], [address], [place] [facility] 07/22/2023 16:20:11 Imaging Results Imaging Date Name Status LastModified by Organiz ation Details LastModified Time 12/04/2023 XR, elbow, 3 or more view completed INTERFACE [facility] [address], [place], [address], 12/04/2023 13:11:12 12/04/2023 XR, elbow, 3 or more view completed INTERFACE [facility] [address], [place], [address], 12/04/2023 13:11:14 Procedure Notes None recorded. Medical Equipment None Reported. Allergies Allergen ID Allergen Name Allergen Category Reaction Reaction Severity Criticality Documentation Date Start Date Code Code System Note Provider Name and Address Organization Details Recorded Time 437034 kiwi fruit extract food Not available Not available Not available 07/13/20232021 39598 01 RxNorm Not Available [facility] 4 15:27:16 582305 sulfameth oxazole / trimethop rim medicatio n Not available Not available Not available 07/13/20232009 84964 RxNorm Not Available [facility] 4 15:27:16 180481 Substance with sulfonami de structure and antibacte rial mechanism of action (substanc e) medicatio n Not available Not available Not available 07/13/20232009 56640 8003 SNOMED Not Available [facility] 4 15:27:16 150769 Product containin g penicilli n (product) medicatio n Not available Not available Not available 07/13/20232009 44690 8001 SNOMED Not Available [facility] 4 15:27:16 Medications Name Sig Start Date Stop Date Status Note LastModified by Organization Details LastModified Time cyclobenzap rine 10 mg tablet TAKE 10 MG ORALLY BEDTIME active Not Available Not Available No t Available azithromyci n 250 mg tablet TAKE 2 TABLETS BY MOUTH TODAY, THEN TAKE 1 TABLET DAILY FOR 4 DAYS DIRECTED active Not Available Not Available No t Available fosfomycin tromethamin e 3 gram oral packet TAKE 1 PACKET (MIXED INSTRUCTE D ON PACKAGE) BY MOUTH EVERY 3 DAYS FOR 9 DAYS active Not Available Not Available No t Available sumatriptan 100 mg tablet PLEASE SEE ATTACHED FOR DETAILED DIRECTION S active Not Available Not Available No t Available meloxicam 15 mg tablet TAKE 1 TABLET ORALLY DAILY active Not Available Not Available No t Available ciprofloxac in 250 mg tablet TAKE 1 TABLET ORALLY 2 TIMES A DAY active Not Available Not Available No t Available amitriptyli ne 10 mg tablet TAKE 1 TAB BY MOUTH AT BEDTIME INCREASE BY 1 TABLET/NI GHT/WEEK/ TO 40 MG AT BEDTIME NEEDED active Not Available Not Available No t Available phenazopyri dine 100 mg tablet TAKE 1 TABLET BY MOUTH EVERY 8 HOURS FOR 6 DAYS active Not Available Not Available No t Available doxycycline monohydrate 100 mg capsule TAKE 1 CAPSULE BY MOUTH EVERY 12 HOURS FOR 4 WEEKS active Not Available Not Available No t Available triamcinolo ne acetonide 40 mg/mL suspension for injection Take 40 mg by injection route. 2023 active Not Available Not Available Not Avai lable cephalexin 500 mg capsule TAKE 1 CAPSULE BY MOUTH 2 TIMES A DAY FOR 10 DAYS active Not Available Not Available No t Available nortriptyli ne 10 mg capsule TAKE 1 CAPSULE ORALLY BEDTIME active Not Available Not Available No t Available pseudoephed rine-guaife nesin ER 80-700 mg tablet,exte nded release as directed 1 - 2 TABS PO Q 4 HRS PRN PAIN. DO NOT DRIVE ON THIS MEDICATIO N. MUST LAST 5 DAYS 09/08 completed Statu s: 'Disc ontin ued'; Not Available Not Available Not Available esomeprazol e magnesium 40 mg capsule,del ayed release TAKE 1 CAPSULE BY MOUTH DAILY active Not Available Not Available No t Available nitrofurant oin macrocrysta l 100 mg capsule TAKE 1 CAPSULE BY MOUTH TWICE A DAY FOR 10 DAYS WITH MEALS/PAULA D active Not Available Not Available No t Available omeprazole 20 mg capsule,del ayed release TAKE 1 CAPSULE BY MOUTH DAILY active Not Available Not Available No t Available metronidazo le 375 mg capsule TAKE 1 CAPSULE BY MOUTH 2 TIMES A DAY FOR 7 DAYS active Not Available Not Available No t Available amoxicillin 875 mg-karleyu m clavulanate 125 mg tablet TAKE 1 TABLET BY MOUTH TWICE A DAY FOR 10 DAYS active Not Available Not Available No t Available oxycodone 5 mg tablet TAKE 1 TABLET BY MOUTH EVERY 6 HOURS NEEDED FOR PAIN active Not Available Not Available No t Available cyclobenzap rine 5 mg tablet TAKE 1 TABLET ORALLY 3 TIMES A DAY NEEDED FOR MUSCLE SPASM active Not Available Not Available No t Available nitrofurant oin monohydrate /macrocryst als 100 mg capsule TAKE 1 CAPSULE ORALLY EVERY 12 HOURS FOR 7 DAYS MUST ADMINISTE R WITH A MEAL/FOOD active Not Available Not Available No t Available alpha lipoic acid 300 mg capsule TAKE 1 CAPSULE BY MOUTH TWICE A DAY active Not Available Not Available No t Available oxycodone HCl-oxycodo ne-ASA 1Q 4-[address] WHILE ON THIS MEDICATIO N 2018 active Statu s: 'Curr ent'; Not Available Not Available Not Available Motegrity 2 mg tablet TAKE 1 TABLET ORALLY DAILY active Not Available Not Available No t Available Vitals Date Recorded Body height Body mass index (BMI) Body weight Provider Name and Address Organization Details Last Updated DateTime 07/22/2023 172.72 cm 20.5 kg/m2 14628.97 g SHANE CHOPRA [facility] 07/22/2023 15:50:28 Date Recorded Body height Body mass index (BMI) Body weight Provider Name and Address Organization Details Last Updated DateTime 12/04/2023 172.72 cm 20.5 kg/m2 77076.97 g MELANI CHESTER [facility] 12/04/2023 13:06:30 Date Recorded Body height Body mass index (BMI) Body weight Provider Name and Address Organization Details Last Updated DateTime 12/09/2023 172.72 cm 20.5 kg/m2 36615.97 g MELANI CHESTER [facility] 12/09/2023 15:15:53 Date Recorded Body height Body mass index (BMI) Body weight Provider Name and Address Organization Details Last Updated DateTime 08/03/2024 172.72 cm 20.5 kg/m2 88942.97 g ELIZABETH LANCASTER [facility] 08/03/2024 15:37:10 Social History None recorded. Functional Status None recorded. Mental Status None recorded. Family History Nothing Reported. Medical History No medical history recorded. Gynecological HistoryNo gynecological history recorded. Obstetrics History GPAL:G 0 P 0 0 0 0 Past Encounters Encounter ID Performer Location Encounter Start Date Encounter Closed Date Diagnosis/Indication Diagnosis SNOMED-CT Code Diagnosis ICD10 Code Diagnosis Note [id number] Deborah De La Cruz PA-C [facility] [address] [place] [address] 07/22/2023 15:22:24 08/11/2023 06:09:27 Impingement syndrome of left shoulder region 2812141472 59523 M75.42 [id number] Maricruz Zhao PA-C [facility] [address] [place] [place] [address] 12/04/2023 12:50:46 01/05/2024 13:42:52 Pain of left elbow joint 3801822641 8308723 M25.522 Effusion o f joint of left elbow 0786750668 14111 M25.477 [id number] Maricruz Zhao PA-C [facility] [address] [place] [address] 12/09/2023 15:07:44 01/12/2024 15:12:34 [id number] MD JAN [facility] - [facility] [address] [place] [address] 08/03/2024 15:08:16 08/04/2024 08:30:01 Bursitis of olecranon of left elbow 3239101451 93140 M70.22 Tenosynovi tis of wrist 716846344 M65.839 Health Concerns Section Related Observation LastModified by Organization Detai ls LastModified Time None Recorded Concern Status LastModified by Organization Details LastModified Time None Recorded Advance Directives Directive None Recorded Payers Encounter Date Sequence Insurance Name Policy Number Policy [place] Covered Member ID [place] Member ID Guarantor Name 07/22/2023 1 [place] [employer] [id number] H Jatin Garcia [id number] Gina Garcia 12/04/2023 1 [place] [id number] H Jatin Cerdack [id number] Gina Ruiz [place] 12/09/2023 1 [place] [id number] H Jatin Rojaswick [id number] Gina Ruiz [place] 08/03/2024 1 [place] [id number] H Jatin Rojaswick [id number] Gina Garcia Notes Date Note Type Note Provider Name and Address Organization Details Recorded Time 07/22/2023 text/html patient here tod ay in follow-up of her left shoulder. Last injected in December 2022. She continues to have ongoing pain and symptoms that affect her lateral brachium. She has pain with reaching. It is affecting her activities of daily living. Frustrated. She comes in today for further evaluation. Deborah De La Cruz PA-C [address] [facility] [address], [place], [address], [facility] 07/22/2023 16:21:36 12/04/2023 text/html I am seeing the patient today under the supervision of dr Vyas who was available but who did not see the patient. DX:Traumatic left olecranon bursitis HPI:53-year-old female here for orthopedic consultation. Patient awoke yesterday with left olecranon swelling and bruising. This morning. Swelling improved. She has some discomfort on palpation of her olecranon. No numbness, tingling. No history of diabetes. No fever or chills. Past family, medical, social history and review of systems has been reviewed, updated and is located in the patient? s chart. Examination: Alert and oriented ? ? 3 . No acute distress. Nonantalgic gait.Examination left elbow reveals minimal swelling over the olecranon process. No warmth or erythema. Range of motion full. Minimal tenderness over the olecranon process. No tenderness over the radiocapitellar joint. Neurovascularly intact.Right elbow reveals no soft tissue swelling, erythema, or ecchymosis. Range of motion is full. Neurovascular intact. X-rays ordered, obtained and reviewed at [facility] 3 views, left olecranon reveals soft tissue swelling Impression/Plan:Findin gs on the situation discussed. Patient elected to proceed with aspiration. Under aseptic technique and a reaching gazing was inserted into the left olecranon bursa. 5 cc of blood was aspirated. A compression dressing was applied. She may remove the dressing this evening. She was prior with a spider pad. She will follow-up on a p.r.n. basis Maricruz Zhao PA-C [address] [facility] [address], [place], [address], [facility] 12/04/2023 13:58:19 12/09/2023 text/html I am seeing the patient today under the supervision of dr Vyas who was available but who did not see the patient. DX:Recurrent left olecranon bursitisTraumatic left olecranon bursitis Status post aspiration 12/04/2023 HPI:53-year-old female here for Reevaluation. She is complaining of recurrent swelling over the posterior aspect left elbow. She complaining of sensitivity. She been wearing a spider pad, which helps, but she developed some irritation over the antecubital fossa. Past family, medical, social history and review of systems has been reviewed, updated and is located in the patient? s chart. Examination: Alert and oriented ? ? 3 . No acute distress. Nonantalgic gait.Examination left elbow reveals minimal swelling over the olecranon process. No warmth or erythema. Range of motion full. Minimal tenderness over the olecranon process. No tenderness over the radiocapitellar joint. Neurovascularly intact.He does have skin excoriations over the antecubital fossa. Right elbow reveals no soft tissue swelling, erythema, or ecchymosis. Range of motion is full. Neurovascular intact. Impression/Plan:Findin gs on the situation discussed. Patient elected to proceed with Repeat aspiration. Under aseptic technique An #18-gauge needle was inserted into the left olecranon bursa. 3 cc of blood was aspirated Patient was injected with 40 mg of Kenalog 40.. A compression dressing was applied. She may remove the dressing this evening. She will follow-up on a p.r.n. basis Maricruz Zhao PA-C [address], [place], [address], [facility] 12/09/2023 15:49:35 08/03/2024 text/html Diagnosis: 1. De Quervain's tenosynovitis left wrist status post multiple injections 2. Left olecranon bursitis 3. Flexor tenosynovitis right middle finger status post multiple The patient presents at her request. She is describing severe pain on the radial aspect of her left wrist. This has been transiently treated with corticosteroid injections but her pain is returned. It is sharp and severe. She has swelling over the posterior aspect of her elbow. This area is tender but this tenderness is resolving. She has triggering of her right middle finger which is undergone multiple injections each which was transiently helpful. Past family, medical, social history and review of systems has been reviewed, updated and is located in the patient? s chart. Examination: Healthy appearing patient in no apparent distress. Alert and oriented. HEENT: Normocephalic and atraumatic. Heart: Regular rate and rhythm. Lungs: Clear to auscultation bilaterally. Abdomen: Soft and nontender. Neurovascular exam: No complaints Extremities: Decreased left wrist range of motion compared to the right. Soft tissue swelling radial aspect left wrist. Provide triggering of the right middle finger with a tender nodule at the A1 mk. Provocative testing the right wrist reveals no instability. Provocative testing the left wrist reveals a positive Nakul's test. No atrophy in either upper extremity. Brisk capillary refill in all digits Plan: I described for the patient the nature of de Quervain's tenosynovitis and her treatment options. She like to proceed with surgical intervention. We discussed the nature of the surgery and its potential risks include infection, injury to blood vessels, tendons, nerves, subluxation of her tendons and stiffness of her wrist. She has consented to the procedure. For her olecranon bursitis I have provided her with a spider pad. We instructed her in its application use. We we will discuss surgical intervention for her flexor tenosynovitis at a later date. The patient has weakness and instability of their extremity which requires stabilization for this semi-rigid/rigid orthosis to improve their function. Verbal and written instructions for the use and application of this item were given. Patient was instructed that should the brace result in increased pain, decreased sensation, increased swelling or an overall worsening of their medical condition, to please contact our office immediately Ad Vyas MD [facility] [address], [place], [address], [facility] 08/04/2024 08:29:59 OBGyn Episode No OBEpisode recorded.
== END 2024-08-17 09:48 | disposition home or self-care (01) ==
LOC: HO.HMCH 09:06
PROVIDERS: PCP Internal Medicine; Visit Provider Internal Medicine
DX: F32.1 Major depressive disorder, single episode, moderate (principal); M25.561 Pain in right knee; M79.604 Pain in right leg; E78.00 Pure hypercholesterolemia, unspecified

== ENCOUNTER → 2024-08-17 09:05 | Outpatient (BNVA) | payer BC, SELFPAY | PROVIDERS: PCP Internal Medicine; Visit Provider Internal Medicine | DX: F32.1 Major depressive disorder, single episode, moderate (principal); M25.561 Pain in right knee; M79.604 Pain in right leg; E78.00 Pure hypercholesterolemia, unspecified | CPT/HCPCS: 96127 ==

== ENCOUNTER 2024-08-17 14:26 | Outpatient (REF) | payer BC, SELFPAY ==
--- NOTE | ~2024-08-17 | XR_ITS ---
EXAMINATION: XR KNEE 1-2 VIEWS RIGHT HISTORY: M25.561 - Pain in right knee COMPARISON: Comparison is made with the prior examination dated 11/15/2021. FINDINGS: AP and lateral views of the right knee are submitted. Osseous mineralization is normal. There is no fracture or dislocation. There is mild narrowing of the medial compartment. There are surgical clips in the posteromedial soft tissues. There is no joint effusion. XR/XR knee RT 2V IMPRESSION: Mild narrowing of the medial compartment. Electronically signed by: Emerson Manriquez MD 08/18/2024 08:08 AM EDT
--- NOTE | ~2024-08-17 | US_ITS ---
EXAMINATION: US LOWER EXTREMITY VEINS LIMITED FOLLOW UP RIGHT HISTORY: M79.604 - Pain in right leg COMPARISON: Comparison is made with the prior examination dated 07/09/2018. TECHNIQUE: Duplex and color Doppler sonographic examination of the deep venous system of the right lower extremity was performed. FINDINGS: The common femoral, superficial femoral, and popliteal veins are patent demonstrating normal compressibility, spontaneous flow, and augmentation. There is a normal color and spectral Doppler waveform appearance of the visualized deep venous system above the knee. The posterior tibial and peroneal veins are patent. US/US venous duplex LE RT IMPRESSION: No evidence of acute DVT in the right lower extremity. Electronically signed by: Emerson Manriquez MD 08/17/2024 02:58 PM EDT
--- OUTSIDE RECORDS SUMMARY | 2024-08-17 16:40 | XMS_ITS | Clinical Summary ---
Author Organization [facility] Address [address] [place] [address] Phone Care Team Providers Care Statistician Mathematical Name Role Phone Kuldeep Marie MD Primary Care Provider [phone] Allergies Active Allergy Reactions Criticality Noted Date [...] [facility] Care Teams Statistician Mathematical Relationship Specialty Start Date End Date Kuldeep Marie MD [address] [place], [place] PCP - General Internal Medicine 12/13/20
== END 2024-08-17 14:27 | disposition home or self-care (01) ==
LOC: HO.US 14:26
PROVIDERS: PCP Internal Medicine; Visit Provider Internal Medicine
DX: M79.604 Pain in right leg (principal); M25.561 Pain in right knee
CPT/HCPCS: 73560; 93971

== ENCOUNTER → 2024-08-17 14:28 | Outpatient (BNV) | payer BC, SELFPAY | PROVIDERS: PCP Internal Medicine; Visit Provider Radiology Diagnostic Radiology | DX: M79.604 Pain in right leg (principal) | CPT/HCPCS: 73560; 93971 ==

== ENCOUNTER 2024-08-23 15:25 | Outpatient (REF) | payer BC, SELFPAY ==
--- NOTE | ~2024-08-23 | US_ITS ---
EXAMINATION: US KIDNEY BILATERAL HISTORY: M54.9 - Dorsalgia, unspecified TECHNIQUE: Real-time grayscale ultrasound imaging of the kidneys was performed and images were reviewed. COMPARISON: Comparison is made with the prior examination dated 06/03/2024. Correlation is also made with an unenhanced CT of the abdomen dated 10/01/2023. FINDINGS: Right kidney: The right kidney measures 10.5 x 3.5 x 5.7 cm. Renal parenchymal echotexture and thickness are normal. Again seen is a 4 x 3 x 5 mm cyst in the interpolar region of the right kidney and a 5 x 5 x 4 mm echogenic lesion at the upper pole, consistent with an angiomyolipoma. There is no hydronephrosis or renal calculi. Left Kidney: The left kidney measures 9.7 x 5.0 x 5.4 cm. Renal parenchymal echotexture and thickness are normal. There are no masses. There is no hydronephrosis or renal calculi. US/US renal BI IMPRESSION: Stable 5 mm angiomyolipoma at the upper pole of the right kidney. 5 mm right renal cyst. Electronically signed by: Emerson Manriquez MD 08/24/2024 08:03 AM EDT
--- OUTSIDE RECORDS SUMMARY | 2024-08-23 18:34 | XMS_ITS | Data Portability ---
Author Organization [facility] Address [address] [place] [address] Care Team Providers Care Heat Seal Operator Name Role Phone JAKE JOSHUA Primary Care Provider Assessment No assessment recorded. Plan of Treatment Reminders Order Date Submit Date Provider Last Modified By Organization Details Last Modified Time Details Appointments SURGERY @ [facility] 2024 01:45P M Ad Vyas MD Not available Not available Not available NEW PROBLEM 2024 02:45P M Jaydon Lundy PA-C Not available Not available Not available RECHECK 15 2024 01:30P M Sabino Thompson PA-C Not available Not available Not available RECHECK 15 2024 11:45A M Ad Vyas MD Not available Not available Not available Lab None recorded . Referral None recorded . Procedures None recorded . Surgeries Dequerva in's release (SURG) 2024 025 [email or web address] [facility], [address], [place], [address], 08/22/2024 15:14:59 Imaging XR, elbow, 3 or more view - rm 118 3v 2023 024 [email or web address] [facility], [address], [address], [place], [address], 12/04/2023 15:20:56 Medication Orders triamcin olone acetonid e 40 mg/mL suspensi on for injectio n 2023 024 mmolpelton Not available 07/22/2023 16:14:51 Patient TargetsNo targets recorded. Patient InstructionsNo instructions recorded. Reason for Referral None Reported. Results Created Date Observation Date Name Description Value Unit Range Abnormal Flag Note LastModifiedBy Organization Detail LastModifiedTime 08/24/1908/23/2024 CBC WITH DIFFE RENTI AL/PL ATELE T WBC 4.7 K/mm3 4.0-11 .0 normal Not Available [address], [address], 08/23/2024 15:58:29 08/24/19 25 08/23/2024 CBC WITH DIFFE RENTI AL/PL ATELE T RBC 4.71 M/mm3 4.20-5 .40 normal Not Available [address], [address], 08/23/2024 15:58:29 08/24/19 25 08/23/2024 CBC WITH DIFFE RENTI AL/PL ATELE T hemoglobin 13.8 gm/dL 11.7-1 5.5 normal Not Available [address], [address], 08/23/2024 15:58:29 08/24/19 25 08/23/2024 CBC WITH DIFFE RENTI AL/PL ATELE T hematocrit 41.7 % 35.7-4 5.8 normal Not Available [address], [address], 08/23/2024 15:58:29 08/24/19 25 08/23/2024 CBC WITH DIFFE RENTI AL/PL ATELE T MCV 88.5 fL 80.0-1 00.0 normal Not Available [address], [address], 08/23/2024 15:58:29 08/24/19 25 08/23/2024 CBC WITH DIFFE RENTI AL/PL ATELE T MCH 29.3 pg 27.0-3 4.0 normal Not Available [address], [address], 08/23/2024 15:58:29 08/24/19 25 08/23/2024 CBC WITH DIFFE RENTI AL/PL ATELE T MCHC 33.1 g/dL 33.0-3 7.0 normal Not Available [address], [address], 08/23/2024 15:58:29 08/24/19 25 08/23/2024 CBC WITH DIFFE RENTI AL/PL ATELE T RDW 40.3 fL <47.0 Not Available [address], [address], 08/23/2024 15:58:29 08/24/19 25 08/23/2024 CBC WITH DIFFE RENTI AL/PL ATELE T platelets 224 K/mm3 150-46 0 normal Not Available [address], [address], 08/23/2024 15:58:29 08/24/19 25 08/23/2024 CBC WITH DIFFE RENTI AL/PL ATELE T neutrophils 59.2 % 44-76 normal Not Available [address], [address], 08/23/2024 15:58:29 08/24/19 25 08/23/2024 CBC WITH DIFFE RENTI AL/PL ATELE T lymphs 30.3 % 15-43 normal Not Available [address], [address], 08/23/2024 15:58:29 08/24/19 25 08/23/2024 CBC WITH DIFFE RENTI AL/PL ATELE T monocytes 7.8 % 4.5-10 .5 normal Not Available [address], [address], 08/23/2024 15:58:29 08/24/19 25 08/23/2024 CBC WITH DIFFE RENTI AL/PL ATELE T eos 1.7 % 0-6 normal Not Available [address], [address], 08/23/2024 15:58:29 08/24/19 25 08/23/2024 CBC WITH DIFFE RENTI AL/PL ATELE T basos 0.8 % 0-2 normal Not Available [address], [address], 08/23/2024 15:58:29 08/24/19 25 08/23/2024 CBC WITH DIFFE RENTI AL/PL ATELE T neutrophils (absolute) 2.8 K/mm3 1.3-7. 0 normal Not Available [address], [address], 08/23/2024 15:58:29 08/24/19 25 08/23/2024 CBC WITH DIFFE RENTI AL/PL ATELE T lymphs (absolute) 1.4 K/mm3 0.8-3. 1 normal Not Available [address], [address], 08/23/2024 15:58:29 08/24/19 25 08/23/2024 CBC WITH DIFFE RENTI AL/PL ATELE T monocytes(ab solute) 0.4 K/mm3 0.4-0. 9 normal Not Available [address], [address], 08/23/2024 15:58:29 08/24/19 25 08/23/2024 CBC WITH DIFFE RENTI AL/PL ATELE T eos (absolute) 0.1 K/mm3 0.0-0. 4 normal Not Available [address], [address], 08/23/2024 15:58:29 08/24/19 25 08/23/2024 CBC WITH DIFFE RENTI AL/PL ATELE T baso (absolute) 0.0 K/mm3 0.0-0. 1 normal Not Available [address], [address], 08/23/2024 15:58:29 04/15/20 25 08/23/2024 CBC WITH DIFFE RENTI AL/PL ATELE T immature granulocytes 0.2 % Not Available [address], [address], 08/23/2024 15:58:29 08/24/19 25 08/23/2024 CBC WITH DIFFE RENTI AL/PL ATELE T immature grans (abs) 0.0 K/mm3 Not Available [address], [address], 08/23/2024 15:58:29 08/24/19 25 08/23/2024 CBC WITH DIFFE RENTI AL/PL ATELE T NRBC 0.0 #/100 _WBC' s Not Available [address], [address], 08/23/2024 15:58:29 08/24/19 25 08/23/2024 CBC WITH DIFFE RENTI AL/PL ATELE T hematology comments: Commen t AUTOM ATED DIFFE RENTI AL MPV 9.3 FL 9.4-1 2.4 L ABS. NRBC 0.0 K/MM3 N Not Available [address], [address], 08/23/2024 15:58:29 08/24/19 25 08/23/2024 EP+AN ION GAP sodium 142 mmol/ L 133-14 5 normal Not Available [address], [address], 08/23/2024 15:58:30 08/24/19 25 08/23/2024 EP+AN ION GAP potassium 4.3 mmol/ L 3.6-5. 2 normal Not Available [address], [address], 08/23/2024 15:58:30 08/24/19 25 08/23/2024 EP+AN ION GAP chloride 105 mmol/ L 98-107 normal Not Available [address] [place], [address], 08/23/2024 15:58:30 08/24/19 25 08/23/2024 EP+AN ION GAP carbon dioxide, total 25 mmol/ L 22-29 normal Not Available [address], [address], 08/23/2024 15:58:30 08/24/19 25 08/23/2024 EP+AN ION GAP anion gap 12 mmol/ L 4-17 Not Available [address], [address], 08/23/2024 15:58:30 12/04/19 24 12/04/2023 XR, elbow , 3 or more view [email or web address] ?Encry pted=s hAaTro YD8dLq bEUv6g %2BXZw aYqtaq 0bqfl% 2Fg9IQ a4ajBk vP9nXo QUaueC m3YtLR FvZl JJ8mAn HZtai3 1k7468 AC0Koa 3uCVaX eUC8mr 84%3D INTERFACE [facility] [address], [place], [address], 12/04/2023 13:11:12 12/04/19 24 12/04/2023 XR, elbow , 3 or more view [email or web address] ?Encry pted=s hAaTro YD8dLq bEUv6g %2BXZw aYqtaq 0bqfl% 2Fg9IQ a4ajBk vP9nXo QUaueC m3YtLR FvZl [facility] 6a1256 AC0Koa 3uCVaX eUC8mr 84%3D INTERFACE [facility] [address], [place], [address], 12/04/2023 13:11:14 Result Notes None recorded. Problems Name Problem SNOMED Code Status Onset Date Resolution Date Notes Provider Name and Address Organization Details Recorded Time Impingement syndrome of left shoulder region 9767707944874 04 Active 2023 Deborah mehta PA-C [address], [place], [address], [facility] 16:13:44 Problem Notes None recorded. Procedures Surgical History Date Name Laterality Status Provider Name and Address Organization Details Recorded Time 4 JZOlecranon Bursa completed Maricruz Zhao PA-C [address], [place], [address], [facility] 12/09/2023 15:49:19 4 JZOlecranon Bursa completed Maricruz Zhao PA-C [address], [place], [address], [facility] 12/04/2023 13:58:04 4 Shoulder Joint Asp & Inj, Bilateral w/US Kenalog 40 mg/1 cc completed Deborah De La Cruz PA-C [address], [place], [address], [facility] 07/22/2023 16:20:11 Imaging Results Imaging Date Name Status LastModified by Organiz ation Details LastModified Time 12/04/2023 XR, elbow, 3 or more view completed INTERFACE [facility] [address], [place], [address], 12/04/2023 13:11:12 12/04/2023 XR, elbow, 3 or more view completed INTERFACE [facility] [address], [place], [address], 12/04/2023 13:11:14 Procedure Notes None recorded. Medical Equipment None Reported. Allergies Allergen ID Allergen Name Allergen Category Reaction Reaction Severity Criticality Documentation Date Start Date Code Code System Note Provider Name and Address Organization Details Recorded Time 417684 kiwi fruit extract food Not available Not available Not available 07/13/20232021 37651 01 RxNorm Not Available [facility] 4 15:27:16 015339 sulfameth oxazole / trimethop rim medicatio n Not available Not available Not available 07/13/20232009 14170 RxNorm Not Available [facility] 4 15:27:16 714384 Substance with sulfonami de structure and antibacte rial mechanism of action (substanc e) medicatio n Not available Not available Not available 07/13/20232009 95480 8003 SNOMED Not Available [facility] 4 15:27:16 691677 Product containin g penicilli n (product) medicatio n Not available Not available Not available 07/13/20232009 08783 8001 SNOMED Not Available [facility] 4 15:27:16 Medications Name Sig Start Date [...] Not Available No t Available amoxicillin 875 mg-potassiu m clavulanate 125 mg tablet TAKE 1 [...] Updated DateTime 07/22/2023 172.72 cm 20.5 kg/m2 69189.97 g SHANE CHOPRA [facility] 07/22/2023 15:50:28 Date Recorded Body height Body mass index (BMI) Body weight Provider Name and Address Organization Details Last Updated DateTime 12/04/2023 172.72 cm 20.5 kg/m2 59405.97 g MELANI CHESTER [facility] 12/04/2023 13:06:30 Date Recorded Body height Body mass index (BMI) Body weight Provider Name and Address Organization Details Last Updated DateTime 12/09/2023 172.72 cm 20.5 kg/m2 80739.97 g MELANI CHESTER [facility] 12/09/2023 15:15:53 Date Recorded Body height Body mass index (BMI) Body weight Provider Name and Address Organization Details Last Updated DateTime 08/03/2024 172.72 cm 20.5 kg/m2 86204.97 g ELIZABETH LANCASTER [facility] 08/03/2024 15:37:10 Social History None recorded. Functional Status None recorded. Mental Status None recorded. Family History Nothing Reported. Medical History No medical history recorded. Gynecological HistoryNo gynecological history recorded. Obstetrics History GPAL:G 0 P 0 0 0 0 Past Encounters Encounter ID Performer Location Encounter Start Date Encounter Closed Date Diagnosis/Indication Diagnosis SNOMED-CT Code Diagnosis ICD10 Code Diagnosis Note [id number] JASPAL Coreas [address] [place] [address] 07/22/2023 15:22:24 08/11/2023 06:09:27 Impingement syndrome of left shoulder region 8492800950 11000 M75.42 [id number] JASPAL Cross [address] [place] [address] 12/04/2023 12:50:46 01/05/2024 13:42:52 Pain of left elbow joint 6309635276 4566325 M25.522 Effusion o f joint of left elbow 9494833136 50787 M25.661 [id number] JASPAL Cross [address] [place] [address] 12/09/2023 15:07:44 01/12/2024 15:12:34 [id number] MD JAN [facility] [address] [place] [address] 08/03/2024 15:08:16 08/22/2024 07:53:40 Bursitis of olecranon of left elbow 2615024841 28348 M70.22 Tenosynovi tis of wrist 575053615 M65.839 Health Concerns Section Related Observation LastModified by Organization Detai ls LastModified Time None Recorded Concern Status LastModified by Organization Details LastModified Time None Recorded Advance Directives Directive None Recorded Payers Encounter Date Sequence Insurance Name Policy Number Policy Billingsley Covered Member ID Billingsley Member ID Guarantor Name 07/22/2023 1 [place] [id number] H Jatin Cerdack [id number] Gina A Beswick 12/04/2023 1 [place] [id number] H Jatin Rojaswick [id number] Gina A Beswick 12/09/2023 1 [place] [id number] H Jatin Cerdack [id number] Gina A Beswick 08/03/2024 1 [place] [id number] H Jatin Rojaswick [id number] Gina A Beswick Notes Date Note Type Note Provider Name [...] evaluation. Deborah De La Cruz PA-C [address], [place], [address], [facility] 07/22/2023 16:21:36 12/04/2023 text/html [...] intact. X-rays ordered, obtained and reviewed at [facility] 3 views, left olecranon reveals soft tissue swelling Impression/Plan:Jaden fofana on the situation discussed. Patient elected to proceed with aspiration. Under aseptic technique and a reaching gazing was inserted into the left olecranon bursa. 5 cc of blood was aspirated. A compression dressing was applied. She may remove the dressing this evening. She was prior with a spider pad. She will follow-up on a p.r.n. basis Maricruz Zhao PA-C [address] [place] [address] [address], [place], [address], [facility] 12/04/2023 13:58:19 12/09/2023 text/html I am seeing [...] Range of motion is full. Neurovascular intact. Impression/Plan:Jaden fofana on the situation discussed. Patient elected to proceed with Repeat aspiration. Under aseptic technique An #18-gauge needle was inserted into the left olecranon bursa. 3 cc of blood was aspirated Patient was injected with 40 mg of Kenalog 40.. A compression dressing was applied. She may remove the dressing this evening. She will follow-up on a p.r.n. basis Maricruz Zhao PA-C [address] [place] [address] [address], [place], [address], [facility] 12/09/2023 15:49:35 08/03/2024 text/html Diagnosis: 1. De [...] contact our office immediately Ad Vyas MD [address] [place], [place] [address], [place], [address], [facility] 08/04/2024 08:29:59 OBGyn Episode No OBEpisode recorded.
--- OUTSIDE RECORDS SUMMARY | 2024-08-23 18:34 | XMS_ITS | Clinical Summary ---
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 Immunizations Immunization Administration Dates Next Due Influenza, Unspecified 07/14/2019 [...] (1 of 3 - 19+ 3-dose series) 01/17 Colorectal Cancer Screening: Annual FOBT 01/17/2021 Colorectal Cancer Screening: Colonoscopy 01/17/2021 Colorectal Cancer Screening: Sigmoidoscopy 01/17/2021 Pneumococcal Vaccine: 50+ Years (1 of 1 - PCV) 022 Influenza Vaccine (Season Ended) 2025 07/14/19 20 Insurance [facility] Care Teams Overhauler Relationship Specialty Start Date End Date Kuldeep Marie MD [address] [place], [place] PCP - General Internal Medicine 12/13/20
== END 2024-08-23 15:26 | disposition home or self-care (01) ==
LOC: HO.HMGCX 15:25
PROVIDERS: PCP Internal Medicine; Visit Provider Nurse Practitioner Family
DX: M54.9 Dorsalgia, unspecified (principal); N20.0 Calculus of kidney
CPT/HCPCS: 76775

== ENCOUNTER → 2024-08-23 15:28 | Outpatient (BNV) | payer BC, SELFPAY | PROVIDERS: PCP Internal Medicine; Visit Provider Radiology Diagnostic Radiology | DX: D17.71 Benign lipomatous neoplasm of kidney (principal); N28.1 Cyst of kidney, acquired; M54.9 Dorsalgia, unspecified | CPT/HCPCS: 76775 ==

== ENCOUNTER 2024-09-13 11:10 | Outpatient (REF) | payer BC, SELFPAY ==
--- OUTSIDE RECORDS SUMMARY | 2024-09-14 12:36 | XMS_ITS | Clinical Summary ---
Author Organization [facility] Address [address] [place] [address] Phone Care Team Providers Care Features Editor Name Role Phone Kuldeep Marie MD Primary Care Provider [phone] Allergies Active Allergy Reactions Criticality Noted Date [...] Vaccine (Season Ended) 2025 07/14/19 20 Insurance [facility] Care Teams Features Editor Relationship Specialty Start Date End Date Kuldeep Marie MD [address] [place], [place] PCP - General Internal Medicine 12/13/20
== END 2024-09-13 11:11 | disposition home or self-care (01) ==
LOC: HO.HOSX 11:10
PROVIDERS: Visit Provider Physician Assistant
DX: Z13.89 Encounter for screening for other disorder (principal)

== ENCOUNTER 2024-11-29 16:22 | Outpatient (REF) | payer BC, SELFPAY ==
--- NOTE | ~2024-11-29 | US_ITS ---
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 COMPARISON: Comparison is made with the prior examination dated 08/23/2024. FINDINGS: Right kidney: The right kidney measures 11.0 x 4.2 x 5.2 cm. Renal parenchymal echotexture and thickness are normal. Again seen is a 7 x 5 x 4 mm echogenic mass at the upper pole consistent with an angiomyolipoma. There is a 6 x 6 x 8 mm cyst at the lower pole demonstrating wall calcification. No calculi are identified. There is no hydronephrosis. Left Kidney: The left kidney measures 11.0 x 4.4 x 5.5 cm. Renal parenchymal echotexture and thickness are normal. There are no masses. There is no hydronephrosis or renal calculi. US/US renal BI IMPRESSION: Stable subcentimeter probable angiomyolipoma. Electronically signed by: Emerson Manriquez MD 11/30/2024 07:04 AM EDT
--- OUTSIDE RECORDS SUMMARY | 2024-11-29 16:44 | XMS_ITS | Clinical Summary ---
Author Organization [facility] Address [address] [place] [address] Phone Care Team Providers Care Packing Machine Tender Name Role Phone Kuldeep Marie MD Primary Care Provider [phone] Allergies Active Allergy Reactions Criticality Noted Date [...] of 1 - PCV) 022 Influenza Vaccine (#1) 2025 07/14/2019 Insurance [facility] Care Teams Packing Machine Tender Relationship Specialty Start Date End Date Kuldeep Marie MD [address] [place], [place] PCP - General Internal Medicine 12/13/20
--- OUTSIDE RECORDS SUMMARY | 2024-11-29 16:44 | XMS_ITS | Clinical Summary ---
Author Organization [facility] Address [address] [place] [address] Phone Care Team Providers Care Repairer Welding Equipment Name Role Phone Kuldeep Marie MD Primary Care Provider [phone] Immunizations Immunization Administration Dates Next Due Influenza, Unspecified Formulation 07/14/2019 Social History Tobacco Use Types Packs/Day Years Used Date Smoking Tobacco: Never Assessed Education Answer Date Recorded Are you interested in more education? Not on sonia e 09/05/2022 Are you concerned about learning? Not on file 09/05/2022 No 09/05/2022 No 09/05/2022 Digital Access Answer Date Recorded No 10/04/2022 No 10/04/2022 No 10/04/2022 Reliable internet access at home? Not on file 10/04/2022 Device with a working camera? Not on file Comments Unknown Sex and Gender Information Value Date Recorded Sex Assigned at Not on file Legal Sex Female 10:31 PM EDT Gender Identity Not on file Sexual Orientation Not on file Last Filed Vital Signs Vital Sign Reading Time Taken Comments Blood Pressure 127/83 01/26/2012 2:18 AM EDT Pulse 93 01/26/2012 2:18 AM EDT Temperature - - Respiratory Rate - - Oxygen Saturation - - Inhaled Oxygen Concentration - - Weight 63.5 kg (140 lb) 01/26/2012 2:18 AM EDT Height 172.7 cm (5' 8 ) 01/26/2012 2:18 AM EDT Body Mass Index 21.29 01/26/2012 2:18 AM EDT Plan of Treatment Health Maintenance Due Date Last Done Comments LIPID PANEL 1972 DEPRESSION SCREENING 1984 SMOKING Hx and SMOKELESS TOBACCO SCREENING 01/17/1985 HEPATITIS C SCREENING 01/17/1990 HIV ONE-TIME SCREENING (18-6 5 YEARS) 01/17/1990 PAP SMEAR 01/17/1993 MAMMOGRAM 2012 COLOGUARD 01/17/2017 COLONOSCOPY 01/17/2017 COLORECTAL CANCER SCREENING 01/17/2017 FIT TEST 01/17/2017 FOBT 01/17/2017 SIGMOIDOSCOPY 01/17/2017 VIRTUAL COLONOSCOPY 01/17/2017 PNEUMOCOCCAL VACCINES (50+ years) (1 of 1 - PCV) 01/17/2022 COVID-19 VACCINE ( - 2023-2 5 season) 2024 Adult Td,Tdap Booster 05/18/2030 05/18/2020 , 12/03/2016 ZOSTER VACCINES Completed 10/11/2022, 05/30/2022 HEPATITIS A VACCINES Aged Out No long er eligible based on patient's age to complete this topic HIB VACCINES Aged Out No longer eligi ble based on patient's age to complete this topic MENINGOCOCCAL VACCINES (ACWY) Aged Out No longer eligible based on patient's age to complete this topic MENINGOCOCCAL VACCINES (B) Aged Out N o longer eligible based on patient's age to complete this topic Medical Devices Not on file Insurance [facility] PPO BLUE CROSS [facility] PPO BLUE CROSS OUT OF STATE PPO Care Teams Repairer Welding Equipment Relationship Specialty Start Date End Date Kuldeep Marie MD [address] [place] [address] [place] [address] PCP - General Internal Medicine 07/19/19 Additional Source Comments The information contained in this document represents components of the legal health record. It is not the complete legal health record.[facility]
--- OUTSIDE RECORDS SUMMARY | 2024-11-29 16:44 | XMS_ITS | Patient Health Record ---
Author Organization [facility] Address [address] [place] [address] Care Team Providers Care [place] Seamer Name Role Phone Kuldeep Marie MD Primary Care Provider Stewart Li Unavailable [phone] Allergies Allergen (clinical drug ingredient) Drug/Non Drug Allergy documented on EMR Reaction Allergy Type Onset Date Status sulfa rash Drug Allergy Active Penicillin rash Drug Allergy Active Reason For Referral No Information Medications Medication SIG (Take, Route, Fr equency, Duration) Notes Start Date End Date Status Tylenol 325 MG 2 tablets as needed Orally every 6 hrs Active Iron Active Ibuprofen 200 MG 1 tablet as needed O rally every 6 hrs Active Social History Tobacco use other than smoking: Question Answer Notes Are you an other tobacco user? No Problems Problem Type SNOMED Code ICD Code Onset Dates Problem Status W/U Status Risk Notes Problem Localized, primary osteoarthritis of the ankle and/or foot (538466815) Primary osteoarthrit is, left ankle and foot (M19.072) Active confirmed Problem Localized, primary osteoarthritis of the ankle and/or foot (095399707) Primary osteoarthrit is, right ankle and foot (M19.071) Active confirmed Plan Of Treatment No Information Insurance Providers Payer Name Payer Address Payer Phone Subscriber Number Group Number Insured Name Patient Relationship to Insured Coverage Start Date [facility]age End Date [facility] [address] [place] [address] [phone] [id number] Jose Gina Self - patient is the insured Medical (General) History Medical History History ICD Code Arthritis Back,Hip,and Knee pain Headaches Migraines Poor circulation Chicken pox Surgical History Surgery Date(Month/Year) section 97,98,99,01 Plantar Faciiotomy 20 yrs ago leg vein stripping/scierotherapy hemorrhoidectomy 04/2014
[2024-11-29 17:19] LABS: Appearance Urine Clear; Glucose Urine UA Negative (Negative); PH 6.0 (5.0-9.0); Specific Gravity - Urine <= 1.005 (1.005-1.025)
== END 2024-11-29 16:23 | disposition home or self-care (01) ==
LOC: HO.US 16:22
PROVIDERS: PCP Internal Medicine; Visit Provider Nurse Practitioner Family
DX: N39.0 Urinary tract infection, site not specified (principal); D17.71 Benign lipomatous neoplasm of kidney
CPT/HCPCS: 76775; 81001; 87086

== ENCOUNTER → 2024-11-29 16:32 | Outpatient (BNV) | payer BC, SELFPAY | PROVIDERS: PCP Internal Medicine; Visit Provider Radiology Diagnostic Radiology | DX: D17.71 Benign lipomatous neoplasm of kidney (principal) | CPT/HCPCS: 76775 ==

== ENCOUNTER 2024-12-13 07:13 | Outpatient (AMB) | payer BC, SELFPAY ==
--- NOTE | 2024-12-13 07:13 | A.OFFVIS_ITS ---
Intake Visit Reasons: 6m/US(set) Intake Note: Patient presents today for follow up visit for ultrasound Imaging Completed:11/29/2024 Urology Medications: none Blood thinner: none Analog Circuit Designer Required: No Accompanied by: Self / Same As Patient Allergies kiwi Allergy (Severe, Verified 12/13/24 07:59) rash Penicillins (PENICILLINS) Allergy (Intermediate, Verified 12/13/24 07:59) SEVERE RASH Sulfa (Sulfonamide Antibiotics) (SULFA(SULFONAMIDE ANTIBIOTICS)) Allergy (Intermediate, Verified 12/13/24 07:59) RASH Medication List - Last Reconciled 12/13/24 by ROBERT Christina-PIA No Known Home Meds HPI Comments Details: Gina is a very pleasant 54 year old female patient of Dr. Castro. She has a past medical history of brain lesion, chronic idiopathic constipation, GERD, and a mass in her uterus that was removed December of 2020. 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 In discussion with the patient today she reports to be doing and feeling well. She reports having followed up with PCP for her mild hyperlipidemia as well as Nephrology. She reports since her last office visit here approximately 6 months ago she has had intermittent episodes of lower urinary tract symptoms however upon increase in hydration does feel they have subsided. She has significantly decrease her consumption of coffee to 2 cups per day. Recent renal imaging results were reviewed today. 12/02 bilateral kidneys are normal in parenchymal echotexture and thickness. No hydronephrosis or renal calculi noted bilaterally. Stable subcentimeter probable right-sided angiolipoma measuring 7 mm. We discussed stability in angiolipoma. Previous imaging also notes question of chronic renal disease at which time her referral was made to Nephrology and she has since followed up. BUN and creatinine results reviewed with the patient today BUN: 05/29 9, 04/29 12, 05/31 13, 06/01 7, 03/03 9 Creatinine: 05/29 0.77, 04/29 0.75, 05/31 0.77, 06/01 0.89, 03/03 0.71 She discusses at length her anxiety regarding her health. We discussed at length the importance of adequate hydration. We discussed bladder triggers/irritants. Previous workup has included a MRI 12/31 to further assess renal lesion which was also suggestive of angiolipoma. Patient also with a history of in office cyst oscopy that noted generalized erythema noted to the bladder wall at which time recommendations were made to increase water intake. She otherwise denies any other issues or concerns at this time. [facility] Medical History EDD (obstructive sleep apnea) Chronic idiopathic constipation Gastroesophageal reflux disease Angiomyolipoma of right kidney Brain lesion Toe pain Mass of uterus Surgical History History of esophagogastroduodenoscopy (EGD) History of colonoscopy History of bunionectomy of right great toe Hx of toe surgery Hx of tubal ligation History of delivery Family History Father Leukemia Arthritis, rheumatoid Mother No problems noted. 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 Cognitive needs: No Hearing needs: No Vision needs: No Review of Systems Const All systems reviewed & are unremarkable except as noted in HPI and below Eyes Reports no additional complaints ENT Reports no additional complaints Card Reports no additional complaints Resp Reports no additional complaints GI Reports as per HPI Reports as per HPI Neuro Reports as per HPI Endo Reports no additional complaints Physical Exam Const General: cooperative Orientation/consciousness: patient oriented x3 Resp Effort & Inspection: able to speak in complete sentences Neuro General: patient oriented x3 Psych Speech and movement: Clear speech present Attitude: cooperative Thought content: Normal thought content present Insight: Fair insight present (Psych) Judgement: Fair judgement present (Psych) Telehealth Telehealth Telehealth Platform: ALENTY Location of provider rendering services: practice address Location of patient: address on file Patient Identification confirmed using: Name, : Yes Telehealth method: video Patient verbally consented to treatment: Yes Patient verbally consented to billing insurance company: Yes Patient informed of any privacy concerns related to visit: Yes Minutes spent on Phone/Video with Pt.: 15 Results Reviewed Results Reviewed: Date of Service: 11/29/24 Procedure(s): US renal BI FINDINGS: Right kidney: The right kidney measures 11.0 x 4.2 x 5.2 cm. Renal parenchymal echotexture and thickness are normal. Again seen is a 7 x 5 x 4 mm echogenic mass at the upper pole consistent with an angiomyolipoma. There is a 6 x 6 x 8 mm cyst at the lower pole demonstrating wall calcification. No calculi are identified. There is no hydronephrosis. Left Kidney: The left kidney measures 11.0 x 4.4 x 5.5 cm. Renal parenchymal echotexture and thickness are normal. There are no masses. There is no hydronephrosis or renal calculi. IMPRESSION: Stable subcentimeter probable angiomyolipoma. Assessment & Plan Assessment & Plan (1) Angiolipoma: Code(s): D17.9 - Benign lipomatous neoplasm, unspecified Category: Medical Plan Recent renal imaging results reviewed with the patient today; as noted above. Will continue with surveillance monitoring. We discussed importance of adequate hydration in relation to lower urinary tract symptoms as well as overall health and well-being. She currently denies any bothersome urinary issues or concerns. She reports be happy with current voiding parameters. Will obtain renal ultrasound in 6 months. Follow-up in 6 months with imaging to be completed prior; or sooner with any issues, concerns, and or questions. Orders: Orders US renal BI 6 Months D17.9 - Benign lipomatous neoplasm, unspecified Patient Instructions: The patient had an opportunity to ask questions regarding the treatment plan. A ll questions were answered. Physical exam, labs, and imaging were discussed and reviewed in detail. As well as risks, benefits, and discussion of treatment choices. No major barriers to understanding were identified. The patient expressed understanding and agreement with the above treatment plan. The patient was made aware they should contact our office by phone for worsening of their current condition, the appearance of new symptoms, or with any questions or concerns. Compliance is encouraged with any medications and follow up testing that is ordered. It is a privilege to be allowed the opportunity to participate in? your urological care.? Again, if you have any questions or concerns If you have any questions or concerns please do not hesitate to contact me. The office is [phone]. This note is constructed using voice recognition software. While every effort has been made to ensure accuracy cargo bracer errors may have been included. Yours sincerely, SAAD Christina Coding Level of Care Code Tele Est Pt Level 3 (72462) Diagnoses Angiolipoma D17.9
--- OUTSIDE RECORDS SUMMARY | 2024-12-13 07:15 | XMS_ITS | Clinical Summary ---
Author Organization [facility] Address [address] [place] [address] Phone Care Team Providers Care Fiber Glass Worker Name Role Phone Kuldeep Marie MD Primary Care Provider [phone] Immunizations Immunization Administration Dates Next Due Influenza, [...] topic Medical Devices Not on file Insurance [facility] PPO BLUE CROSS OUT OF [facility] PPO BLUE CROSS OUT OF STATE PPO Care Teams Fiber Glass Worker Relationship Specialty Start Date End Date Kuldeep Marie MD [address] [place] [address] [place] [address] PCP - General Internal Medicine 07/19/19 Additional Source Comments The information contained in this document represents components of the legal health record. It is not the complete legal health record.[facility]
--- OUTSIDE RECORDS SUMMARY | 2024-12-13 07:15 | XMS_ITS ---
Author Name [facility] Organization Unknown Care Team Organization Name Specialty Phone Email Start Date End Da [facility] 03/25/2024
--- OUTSIDE RECORDS SUMMARY | 2024-12-13 07:15 | XMS_ITS | Patient Health Record ---
Author Organization [facility] Address [address] [place] [address] Care Team Providers Care Wheel Press Operator Name Role Phone Kuldeep Marie MD Primary Care Provider Stewart Li Unavailable [phone] Allergies Allergen (clinical drug ingredient) Drug/Non Drug [...] primary osteoarthritis of the ankle and/or foot (515425121) Primary osteoarthrit is, left ankle and foot (M19.072) Active confirmed Problem Localized, primary osteoarthritis of the ankle and/or foot (705618014) Primary osteoarthrit is, right ankle and foot (M19.071) Active confirmed Plan Of Treatment No Information Insurance Providers Payer Name Payer Address Payer Phone Subscriber Number Group Number Insured Name Patient Relationship to Insured Coverage Start Date [facility]age End Date [facility] [address] [place] [address] [phone] [id number] Jose Gina Self - patient is the insured Medical (General) History Medical History History ICD Code Arthritis Back,Hip,and Knee pain Headaches Migraines Poor circulation Chicken pox Surgical History Surgery Date(Month/Year) section 97,98,99,01 Plantar Faciiotomy 20 yrs ago leg vein stripping/scierotherapy hemorrhoidectomy 04/2014
--- OUTSIDE RECORDS SUMMARY | 2024-12-13 07:15 | XMS_ITS | Clinical Summary ---
Author Organization [facility] Address [address] [place] [address] Phone Care Team Providers Care Handicapped Teacher Name Role Phone Kuldeep Marie MD Primary Care Provider [phone] Allergies Active Allergy Reactions Criticality Noted Date [...] 022 Influenza Vaccine (#1) 2025 07/14/2019 Insurance [facility] Care Teams Handicapped Teacher Relationship Specialty Start Date End Date Kuldeep Marie MD [address] [place], [place] PCP - General Internal Medicine 12/13/20
== END 2024-12-13 08:04 | disposition home or self-care (01) ==
LOC: HO.HUSH 07:13
PROVIDERS: PCP Internal Medicine; Visit Provider Nurse Practitioner Family
DX: D17.71 Benign lipomatous neoplasm of kidney (principal)
CPT/HCPCS: 99213

== ENCOUNTER 2024-12-14 16:18 | Outpatient (REF) | payer BC, SELFPAY ==
--- OUTSIDE RECORDS SUMMARY | 2024-12-14 16:31 | XMS_ITS | Patient Health Record ---
Author Organization [facility] Address [address] [facility] [place] [address] Care Team Providers Care Database Security Expert Name Role Phone Kuldeep Marie MD Primary Care Provider Stewart Li Unavailable [phone] Allergies Allergen (clinical drug ingredient) Drug/Non Drug [...] primary osteoarthritis of the ankle and/or foot (395130610) Primary osteoarthrit is, left ankle and foot (M19.072) Active confirmed Problem Localized, primary osteoarthritis of the ankle and/or foot (595202534) Primary osteoarthrit is, right ankle and foot (M19.071) Active confirmed Plan Of Treatment No Information Insurance Providers Payer Name Payer Address Payer Phone Subscriber Number Group Number Insured Name Patient Relationship to Insured Coverage Start Date Coverage End Date [facility] [address] [place] [address] [phone] [id number] PrashantEliz songi Self - patient is the insured Medical (General) History Medical History History ICD Code Arthritis Back,Hip,and Knee pain Headaches Migraines Poor circulation Chicken pox Surgical History Surgery Date(Month/Year) section 97,98,99,01 Plantar Faciiotomy 20 yrs ago leg vein stripping/scierotherapy hemorrhoidectomy 04/2014
--- OUTSIDE RECORDS SUMMARY | 2024-12-14 16:31 | XMS_ITS | Clinical Summary ---
Author Organization [facility] Address [address] [place] [address] Phone Care Team Providers Care Dairy Manufacturing Technologist Name Role Phone Kuldeep Marie MD Primary Care Provider [phone] Immunizations Immunization Administration Dates Next Due Influenza, [...] topic Medical Devices Not on file Insurance [facility] PPO BLUE CROSS OUT OF [facility] PPO BLUE CROSS OUT OF STATE PPO Care Teams Dairy Manufacturing Technologist Relationship Specialty Start Date End Date Kuldeep Marie MD [address] [place] [address] [place] [address] PCP - General Internal Medicine 07/19/19 Additional Source Comments The information contained in this document represents components of the legal health record. It is not the complete legal health record.[facility]
--- OUTSIDE RECORDS SUMMARY | 2024-12-14 16:31 | XMS_ITS | Clinical Summary ---
Author Organization [facility] Address [address] [place] [address] Phone Care Team Providers Care Brewery Pumper Name Role Phone Kuldeep Marie MD Primary Care Provider Allergies Active Allergy Reactions Criticality Noted Date [...] 022 Influenza Vaccine (#1) 2025 07/14/2019 Insurance [facility] Care Teams Brewery Pumper Relationship Specialty Start Date End Date Kuldeep Marie MD [address] [place], [place] PCP - General Internal Medicine 12/13/20
[2024-12-14 17:43] LABS: Appearance Urine Clear; Glucose Urine UA Negative (Negative); PH 7.0 (5.0-9.0); Specific Gravity - Urine <= 1.005 (1.005-1.025)
[2024-12-14 17:48] LABS: Anion Gap 13 (12-20); Blood Urea Nitrogen 7 mg/dL (9-16); Calcium 9.4 mg/dL (8.4-10.2); Carbon Dioxide 26 mmol/L (22-29); Chloride 104 mmol/L (96-108); Estimated Glomerular Filt Rate > 60; Potassium 4.1 mmol/L (3.3-5.1); Sodium 139 mmol/L (135-145)
[2024-12-14 18:59] LABS: Total Protein Urine Random < 7 mg/dL (<12)
== END 2024-12-14 16:19 | disposition home or self-care (01) ==
LOC: HO.LAB 16:18
PROVIDERS: PCP Internal Medicine; Visit Provider Internal Medicine Hypertension Specialist
DX: D17.71 Benign lipomatous neoplasm of kidney (principal)
CPT/HCPCS: 36415; 80048; 81003; 82570; 84156

== ENCOUNTER 2024-12-15 16:17 | Outpatient (AMB) | payer BC, SELFPAY ==
[2024-12-15 16:16] VITALS: BP 106/78; PULSE 102; O2SAT 96; BMI 22.3
--- NOTE | 2024-12-15 16:16 | HO.NEPHOV_ITS ---
Vital Signs 12/15/24 16:16 Height 5 ft 8 in Weight 147 lb BMI 22.3 BP 106/78 Blood Pressure Location Lt brachial Position Sitting Pulse 102 H Pulse Source Pulse Oximeter Pulse Oximetry (%) 96 Oxygen Delivery Method Room Air Intake Visit Reasons: 6 MO FU/ Needs late appt-Conf [employer] Crewmember Required: No Accompanied by: Self / Same As Patient Allergies kiwi Allergy (Severe, Verified 12/15/24 16:21) rash Penicillins (PENICILLINS) Allergy (Intermediate, Verified 12/15/24 16:21) SEVERE RASH Sulfa (Sulfonamide Antibiotics) (SULFA(SULFONAMIDE ANTIBIOTICS)) Allergy (Intermediate, Verified 12/15/24 16:21) RASH HPI Comments Details: Gina is a 54-year-old woman who has been enjoying reasonably good health. She has been referred for evaluation of angiomyolipoma of the kidneys. She has had multiple images for the last 6 years. The imaging studies reveal stable angiomyolipoma. She has not had any hematuria. History of renal stone in the past. 12/15/24 Overall doing well. No new issues [facility] Medical History EDD (obstructive sleep apnea) Chronic idiopathic constipation Gastroesophageal reflux disease Angiomyolipoma of right kidney Brain lesion Toe pain Mass of uterus Surgical History History of esophagogastroduodenoscopy (EGD) History of colonoscopy History of bunionectomy of right great toe Hx of toe surgery Hx of tubal ligation History of delivery Family History Father Leukemia Arthritis, rheumatoid Mother No problems noted. 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 Lungs entry equal no rales. Heart S1-S2 heard no gallop or rub. Abdomen soft nontender. Neuro alert awake oriented. No asterixis. Extremities no edema. Results Reviewed Nephrology Results: Sodium, (135-145) 139 mmol/L 12/14/24 Potassium, (3.3-5.1) 4.1 mmol/L 12/14/24 Chloride, (96-108) 104 mmol/L 12/14/24 Carbon Dioxide, (22-29) 26 mmol/L 12/14/24 BUN, (9-16) 7 mg/dL L 12/14/24 Creatinine, (0.5-1.4) 0.57 mg/dL 12/14/24 Calcium, (8.4-10.2) 9.4 mg/dL 12/14/24 Urine Protein, (Neg-Trace) Negative mg/dL 12/14/24 Urine Creatinine 13.79 mg/dL 12/14/24 Renal US 11/29/24 Assessment & Plan Assessment & Plan (1) Angiolipoma of right kidney: Code(s): D17.71 - Benign lipomatous neoplasm of kidney Category: Medical (2) Nephrolithiasis: Code(s): N20.0 - Calculus of kidney Category: Medical (3) Renal cyst: Code(s): N28.1 - Cyst of kidney, acquired Category: Medical Plan 54-year-old woman with angiomyolipoma. Ultrasound reviewed right renal cortical echogenic 0.5 x 0.4 x 0.3 cm lesion, likely angiomyolipoma. Based on previous imaging this lesion appears stable. At the present time there is no further imaging is needed. We can monitor this periodically. History of renal stone encouraged her to stay on low-sodium diet increase p.o. fluid intake. She has mild hyperlipidemia encouraged to follow up with the PCP. May benefit from statins Orders: Orders Basic Metabolic Panel 1 Year N20.0 - Calculus of kidney, N28.1 - Cyst of kidney, acquired UA and rflx microscopic 1 Year N20.0 - Calculus of kidney, N28.1 - Cyst of kidney, acquired Coding Level of Care Code Est Pt Level 4 (50826) Diagnoses Angiolipoma of right kidney D17.71 Nephrolithiasis N20.0 Renal cyst N28.1
== END 2024-12-15 16:30 | disposition home or self-care (01) ==
LOC: HO.HKA 16:18
PROVIDERS: PCP Internal Medicine; Visit Provider Internal Medicine Hypertension Specialist
DX: D17.71 Benign lipomatous neoplasm of kidney (principal); N20.0 Calculus of kidney; N28.1 Cyst of kidney, acquired
CPT/HCPCS: 99214

== ENCOUNTER 2025-02-09 16:23 | Outpatient (AMB) | payer BC, SELFPAY ==
[2025-02-09 16:26] VITALS: BP 104/66; PULSE 89; RESP 18; O2SAT 97; BMI 23.2
--- NOTE | 2025-02-09 16:26 | MHC.PC.OV ---
Vital Signs 02/09/25 16:26 Height 5 ft 8 in Weight 152 lb 8 oz BMI 23.2 BP 104/66 Blood Pressure Location Rt brachial Position Sitting Respiration 18 Pulse 89 Pulse Source Pulse Oximeter Temp Source Temporal Artery Scan Pulse Oximetry (%) 97 Oxygen Delivery Method Room Air Intake Visit Reasons: upper arm pain Master Plumber Required: No Accompanied by: Self / Same As Patient Allergies kiwi Allergy (Severe, Verified 02/09/25 16:42) rash Penicillins (PENICILLINS) Allergy (Intermediate, Verified 02/09/25 16:42) SEVERE RASH Sulfa (Sulfonamide Antibiotics) (SULFA(SULFONAMIDE ANTIBIOTICS)) Allergy (Intermediate, Verified 02/09/25 16:42) RASH Tobacco use date assessed: 02/09/25 Dental Screening Dental Screen Date: 02/09/25 Did you have a dental visit in the last 12 months?: Yes Did you have a dental problem in the last 6 months where you did not have access to dental care?: No Was dental information given to patient?: Patient has dentist HPI HPI Comments History of Present Illness Details The patient is a 55-year-old female presenting with pain in the right upper extremity. The pain began yesterday morning, initially localized to the upper arm and progressively worsening, extending to the neck and shoulder blade. The patient describes the pain as throbbing, with associated redness and warmth to touch, but denies any burning sensation. The patient also reports a history of small fiber neuropathy, for which she is on duloxetine, although it has not been effective in managing her symptoms. She experiences shock-like sensations in the ankle area and persistent tingling in both feet and toes, which have been unresponsive to treatment. Additionally, the patient is postmenopausal since 2019 and experiences hot flashes, particularly at night, affecting her sleep. She also reports frequent headaches and occasional lightheadedness, contributing to a general feeling of malaise. [facility] Medical History EDD (obstructive sleep apnea) Chronic idiopathic constipation Gastroesophageal reflux disease Angiomyolipoma of right kidney Brain lesion Toe pain Mass of uterus Surgical History History of esophagogastroduodenoscopy (EGD) History of colonoscopy History of bunionectomy of right great toe Hx of toe surgery Hx of tubal ligation History of delivery Family History Father Leukemia Arthritis, rheumatoid Mother No problems noted. 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 1. Little interest or pleasure in doing things: not at all 2. Feeling down, depressed, or hopeless: not at all 3. Trouble falling or staying asleep, or sleeping too much: nearly every day 4. Feeling tired or having little energy: nearly every day 5. Poor appetite or overeating: several days 6. Feeling bad about yourself - or that you are a failure or have let yourself or your family down: not at all 7. Trouble concentrating on things, such as reading the newspaper or watching television: several days 8. Moving or speaking so slowly that other people could have noticed. Or the opposite - being so fidgety or restless that you have been moving around a lot more than usual: not at all 9. Thoughts that you would be better off or of hurting yourself in some way: not at all Total score: 8 Source: Developed by Drs. Emerson Garcia, Mojgan Cruz, Florentino Hall and colleagues, with an educational steph from [employer]. Thrive Questionnaire Date Thrive assessed: 08/17/24 I am a: Patient What is your living situation today?: I have a steady place to live Within the past 12 months, did the food you bought not last and you didn't have the money to get more?: Never true Within the past 12 months, did you worry whether your food would run out before you got money to buy more?: Never true Do you have trouble paying for medicines?: No Do you have trouble getting transportation to medical appointments?: No Do you have trouble paying your heating and electricity bill?: No Do you have trouble taking care of your child, family member or friend?: No Do you have trouble with day-to-day activities such as bathing, preparing meals, shopping, managing finances, etc.?: No Are you currently unemployed and looking for a job?: No Are you interested in more education?: No Please select the resources that you would like help with: None Currently or been in a relationship where the following occur: No concerns reported THRIVE Score: 0 AUDIT C Alcohol Use Questionnaire (AUDIT-C) 1. How often do you have a drink containing alcohol?: Never 3. How often do you have six or more drinks on one occasion?: Never Total Score: 0 ERIC-7 AMB Questionnaire ERIC-7 Date ERIC - 7 assessed: 08/17/24 Feeling nervous, anxious, or on edge: 1 = Several days Not being able to stop or control worryin = Not at all Worrying too much about different things: 1 = Several days Trouble relaxin = Not at all Being so restless that it is hard to sit still: 0 = Not at all Becoming easily annoyed or irritable: 0 = Not at all Feeling afraid as if something awful might happen: 0 = Not at all Total ERIC-7 score (0-4 normal; 5-9 mild; 10-14 moderate; 15-21 severe): 2 Source: Developed by Drs. Emerson Garcia, Mojgan Cruz, Florentino Hall and colleagues, with an educational steph from [employer]. Review of Systems Const Details: Positives besides what was mentioned in HPI are in BOLD Constitutional: No Weight Change, No Fever, No Chills, No Night Sweats, No Fatigue, No Malaise ENT/Mouth: No Hearing Changes, No Ear Pain, No Nasal Congestion, No Sinus Pain, No Hoarseness, No sore throat, No Rhinorrhea, No Swallowing Difficulty Eyes: No Eye Pain, No Swelling, No Redness, No Foreign Body, No Discharge, No Vision Changes Cardiovascular: No Chest Pain, No SOB, No PND, No Dyspnea on Exertion, No Orthopnea, No Claudication, No Edema, No Palpitations Respiratory: No Cough, No Sputum, No Wheezing, No Smoke Exposure, No Dyspnea Gastrointestinal: No Nausea, No Vomiting, No Diarrhea, No Constipation, No Pain, No Heartburn, No Anorexia, No Dysphagia, No Hematochezia, No Melena, No Flatulence, No Jaundice Genitourinary: No Dysmenorrhea, No DUB, No Dyspareunia, No Dysuria, No Urinary Frequency, No Hematuria, No Urinary Incontinence, No Urgency, No Flank Pain, No Urinary Flow Changes, No Hesitancy Musculoskeletal: No Arthralgias, No Myalgias, No Joint Swelling, No Joint Stiffness, No Back Pain, No Neck Pain, No Injury History Skin: No Skin Lesions, No Pruritis, No Hair Changes, No Breast/Skin Changes, No Nipple Discharge Neuro: No Weakness, No Numbness, No Paresthesias, No Loss of Consciousness, No Syncope, No Dizziness, No Headache, No Coordination Changes, No Recent Falls Psych: No Anxiety/Panic, No Depression, No Insomnia, No Personality Changes, No Delusions, No Rumination, No SI/HI/AH/VH, No Social Issues, No Memory Changes, No Violence/Abuse Hx., No Eating Concerns Heme/Lymph: No Bruising, No Bleeding, No Transfusions History, No Lymphadenopathy Endocrine: No Polyuria, No Polydipsia, No Temperature Intolerance Physical exam (Primary Care) Vital Signs: Last Vital Signs Pulse 89 02/09/25 16:26 Resp 18 02/09/25 16:26 BP 104/66 02/09/25 16:26 Pulse Ox 97 02/09/25 16:26 Oxygen Delivery Method Room Air 02/09/25 16:26 BMI result Body Mass Index 23.2 Tobacco/Smoking Status: Tobacco use Status Tobacco use date assessed 02/09/25 02/09/25 16:34 Patient Tobacco Use Status Never used Tobacco 02/09/25 16:34 Tobacco use type 08/17/24 10:00 e-Cigarette/Vaping Use Never Used 02/09/25 16:34 PHQ-9: PHQ-9 Score PHQ-9: Total score 8 02/09/25 16:42 Thrive Assessment: Date of Thrive Assessment Date Thrive assessed 08/17/24 02/09/25 16:34 Currently or been in a relationship where the following occur: No concerns reported Const Other: Pertinent findings are in BOLD GENERAL APPEARANCE NAD, activity normal for age, well developed/ well nourished, no cyanosis, pallor, or diaphoresis. EYES lids/conjunctiva normal. EARS/NOSE/THROAT Mucous membranes moist, nares normal, lips/teeth normal uvula midline without oral pharyngeal erythema, exudate or swelling TMs normal bilaterally. No lymphangitis/lymphedema. HEAD/NECK normocephalic atraumatic, no facial trauma, neck is supple. RESPIRATORY respiratory effort normal, speaks in full sentences, no tripod position, no accessory muscle use. Lungs clear to auscultation without rhonchi, wheezes, rales CARDIAC Regular rate and rhythm, no edema. ABDOMINAL Soft, ND/NT. No evidence of fluid wave. No pulsatile masses on exam, rebound tenderness, Mcfarland sign or pain over Mcburney's point. MUSCLES/EXTREMITIES No abnormal range of motion, no swelling. SKIN Warm, pink and dry. No rashes, dermatoses, petechiae or lesions. Right upper arm with redness and warmth, no edema. NEUROLOGICAL Speech is clear and appropriate. Normal level of consciousness. Gait and coordination are normal. 5/5 strength in all extremities. PSYCH Normal mood and affect. Judgement/competence is appropriate Results AMB Urinalysis, Automated UA Leukoctes 0 Piter/uL Last Edit by MARIANGEL Moyer on 02/09/25 16:49 UA Nitrite Negative Last Edit by MARIANGEL Moyer on 02/09/25 16:49 UA Urobilinogen 0 mg/dL Last Edit by MARIANGEL Moyer on 02/09/25 16:49 UA Protein 0 mg/dL Last Edit by MARIANGEL Moyer on 02/09/25 16:49 UA pH 6.0 Last Edit by MARIANGEL Moyer on 02/09/25 16:49 UA Blood 1 Donny/uL Last Edit by MARIANGEL Moyer on 02/09/25 16:49 UA Specific Kelliher 1.005 Last Edit by MARIANGEL Moyer on 02/09/25 16:49 UA Ketone Negative Last Edit by MARIANGEL Moyer on 02/09/25 16:49 UA Bilirubin 0 mg/dL Last Edit by MARIANGEL Moyer on 02/09/25 16:49 UA Glucose 0 mg/dL Last Edit by MARIANGEL Moyer on 02/09/25 16:49 Results Reviewed Results Reviewed: Laboratory Last Values Urine pH (Auto) 6.0 02/09/25 16:40 Specific Kelliher (Auto) 1.005 02/09/25 16:40 Urine Protein (Auto) 0 mg/dL 02/09/25 16:40 Glucose (UA)(Auto) 0 mg/dL 02/09/25 16:40 Urine Ketones (Auto) Negative 02/09/25 16:40 Urine Blood (Auto) 1 Donny/uL 02/09/25 16:40 Urine Nitrite (Auto) Negative 02/09/25 16:40 Urine Bilirubin (Auto) 0 mg/dL 02/09/25 16:40 Urine Urobilinogen (Auto) 0 mg/dL 02/09/25 16:40 Leukocyte Esterase (Auto) 0 Piter/uL 02/09/25 16:40 Coding Level of Care Code Est Pt Level 4 (44106) Diagnoses Erythema of upper extremity L53.9 Neuropathy G62.9 Assessment & Plan Assessment & Plan (1) Erythema of upper extremity: Code(s): L53.9 - Erythematous condition, unspecified Category: Medical Plan: - Plan to perform an urgent ultrasound of the upper extremities to rule out blood clot - Advise use of [id number] hydrating cream for symptomatic relief (2) Neuropathy: Code(s): G62.9 - Polyneuropathy, unspecified Category: Medical Plan: We will check for TSH, A1C, B12, and folate to rule out any reversible cause of neuropathy. Orders: Orders US venous duplex UE BI Today L53.9 - Erythematous condition, unspecified Hemoglobin A1c Today G62.9 - Polyneuropathy, unspecified TSH reflex Free T4 Today G62.9 - Polyneuropathy, unspecified AMB Urinalysis Automated Today Z13.9 - Encounter for screening, unspecified Vitamin B12 and Folate Today G62.9 - Polyneuropathy, unspecified
--- OUTSIDE RECORDS SUMMARY | 2025-02-09 17:04 | XMS_ITS | Patient Health Record ---
Author Organization [facility] Address [address] [facility] [place] [address] Care Team Providers Care Dope Heater Name Role Phone Kuldeep Marie MD Primary Care Provider Stewart Li Unavailable [phone] Allergies Allergen (clinical drug ingredient) Drug/Non Drug [...] primary osteoarthritis of the ankle and/or foot (527424424) Primary osteoarthrit is, left ankle and foot (M19.072) Active confirmed Problem Localized, primary osteoarthritis of the ankle and/or foot (465910267) Primary osteoarthrit is, right ankle and foot (M19.071) Active confirmed Plan Of Treatment No Information Insurance Providers Payer Name Payer Address Payer Phone Subscriber Number Group Number Insured Name Patient Relationship to Insured Coverage Start Date Coverage End Date [facility] [address] [place] [address] [phone] [id number] PrashantEliz songi Self - patient is the insured Medical (General) History Medical History History ICD Code Arthritis Back,Hip,and Knee pain Headaches Migraines Poor circulation Chicken pox Surgical History Surgery Date(Month/Year) section 97,98,99,01 Plantar Faciiotomy 20 yrs ago leg vein stripping/scierotherapy hemorrhoidectomy 04/2014
--- OUTSIDE RECORDS SUMMARY | 2025-02-09 17:04 | XMS_ITS | Clinical Summary ---
Author Organization [facility] Address [address] [place] [address] Phone Care Team Providers Care Agency Trainer Name Role Phone Kuldeep aMrie MD Primary Care Provider [phone] Immunizations Immunization Administration Dates Next Due Influenza, [...] years) (1 of 1 - PCV) 01/17/2022 INFLUENZA VACCINE (#1) 2024 07/14/2019 COVID-19 VACCINE (1 - 2023-2 5 season) 2025 Adult Td,Tdap Booster 05/18/2030 05/18/2020 , 12/03/2016 [...] topic Medical Devices Not on file Insurance [facility] PPO 9 OLIM[place]IA SLAUGHTER [place] [facility] OUT OF [facility] PPO Jessica SLAUGHTER [facility] OUT [facility] PPO Care Teams Agency Trainer Relationship Specialty Start Date End Date Kuldeep Marie MD [address] [place] [address] [place] [address] PCP - General Internal Medicine 07/19/19 Additional Source Comments The information contained in this document represents components of the legal health record. It is not the complete legal health record.[facility]
== END 2025-02-09 17:06 | disposition home or self-care (01) ==
LOC: HO.HMCH 16:24
PROVIDERS: PCP Internal Medicine; Visit Provider Internal Medicine
DX: L53.9 Erythematous condition, unspecified (principal); G62.9 Polyneuropathy, unspecified; Z13.9 Encounter for screening, unspecified

== ENCOUNTER → 2025-02-09 16:23 | Outpatient (BNVA) | payer BC, SELFPAY | PROVIDERS: PCP Internal Medicine; Visit Provider Internal Medicine | DX: N95.1 Menopausal and female climacteric states (principal); R23.2 Flushing; G62.9 Polyneuropathy, unspecified | CPT/HCPCS: 81003; 96127 ==

== ENCOUNTER 2025-02-10 06:00 | Outpatient (REF) | payer BC, SELFPAY ==
--- NOTE | ~2025-02-10 | US_ITS ---
CLINICAL HISTORY: L53.9 - Erythematous condition, PAIN Venous duplex Doppler ultrasound right arm with waveform analysis: Comparison: None Findings: Deep veins of the right arm were evaluated with compression, augmentation and phasicity which is normal. Blood flow in the deep veins was also documented with color Doppler. Impression: Negative for deep venous thrombosis. This document has been electronically signed by: Bill Ortiz MD on 02/10/2025 18:09:32
--- OUTSIDE RECORDS SUMMARY | 2025-02-10 06:02 | XMS_ITS | Patient Health Record ---
Author Organization [facility] Address [address] [facility] [place] [address] Care Team Providers Care Medical Services Coordinator Name Role Phone Kuldeep Marie MD Primary Care Provider Stewart Li Unavailable [phone] Allergies Allergen (clinical drug ingredient) Drug/Non Drug [...] primary osteoarthritis of the ankle and/or foot ([id number]) Primary osteoarthrit is, left ankle and foot (M19.072) Active confirmed Problem Localized, primary osteoarthritis of the ankle and/or foot (679523527) Primary osteoarthrit is, right ankle and foot (M19.071) Active confirmed Plan Of Treatment No Information Insurance Providers Payer Name Payer Address Payer Phone Subscriber Number Group Number Insured Name Patient Relationship to Insured Coverage Start Date Coverage End Date [facility] [address] [place] [address] [phone] [id number] PrashantEliz songi Self - patient is the insured Medical (General) History Medical History History ICD Code Arthritis Back,Hip,and Knee pain Headaches Migraines Poor circulation Chicken pox Surgical History Surgery Date(Month/Year) section 97,98,99,01 Plantar Faciiotomy 20 yrs ago leg vein stripping/scierotherapy hemorrhoidectomy 04/2014
--- OUTSIDE RECORDS SUMMARY | 2025-02-10 06:02 | XMS_ITS | Clinical Summary ---
Author Organization [facility] Address [address] [place] [address] Phone Care Team Providers Care Paper Bag Machine Operator Name Role Phone Kuldeep Marie MD Primary Care Provider [phone] Allergies Active Allergy Reactions Criticality Noted Date [...] 022 Influenza Vaccine (#1) 2025 07/14/2019 Insurance [facility] Care Teams Paper Bag Machine Operator Relationship Specialty Start Date End Date Kuldeep Marie MD [address] [place], [place] PCP - General Internal Medicine 12/13/20
--- OUTSIDE RECORDS SUMMARY | 2025-02-10 06:02 | XMS_ITS | Clinical Summary ---
Author Organization [facility] Address [address] [place] [address] Phone Care Team Providers Care Housing Management Officer Name Role Phone Kuldeep Marie MD Primary Care Provider [phone] Immunizations Immunization Administration Dates Next Due Influenza, [...] topic Medical Devices Not on file Insurance [facility] PPO 9 OLIMPIA SLAUGHTER [place] [facility] OUT OF [facility] PPO Jessica SLAUGHTER [place] [facility] OUT [facility] PPO Care Teams Housing Management Officer Relationship Specialty Start Date End Date Kuldeep Marie MD [address] [place] [address] [place] [address] PCP - General Internal Medicine 07/19/19 Additional Source Comments The information contained in this document represents components of the legal health record. It is not the complete legal health record.[facility]
[2025-02-10 08:38] LABS: Folate 7.9 ng/mL (> or = 4.0); Vitamin B12 448 pg/mL (200-900)
== END 2025-02-10 06:01 | disposition home or self-care (01) ==
LOC: HO.LAB 06:00
PROVIDERS: PCP Internal Medicine; Visit Provider Internal Medicine
DX: M79.601 Pain in right arm (principal); L53.9 Erythematous condition, unspecified; G62.9 Polyneuropathy, unspecified; Z13.1 Encounter for screening for diabetes mellitus; Z13.29 Encounter for screening for other suspected endocrine disorder
CPT/HCPCS: 36415; 82607; 82746; 83036; 84443; 93971

== ENCOUNTER 2025-02-10 16:21 | Outpatient (REF) | payer BC, SELFPAY ==
--- OUTSIDE RECORDS SUMMARY | 2025-02-10 16:24 | XMS_ITS | Clinical Summary ---
Author Organization [facility] Address [address] [place] [address] Phone Care Team Providers Care Gift Shop Manager Name Role Phone Kuldeep Marie MD Primary Care Provider [phone] Allergies Active Allergy Reactions Criticality Noted Date [...] 022 Influenza Vaccine (#1) 2025 07/14/2019 Insurance [facility] Care Teams Gift Shop Manager Relationship Specialty Start Date End Date Kuldeep Marie MD [address] [place], [place] PCP - General Internal Medicine 12/13/20
--- OUTSIDE RECORDS SUMMARY | 2025-02-10 16:24 | XMS_ITS | Clinical Summary ---
Author Organization [facility] Address [address] [place] [address] Phone Care Team Providers Care Shrimping Boat Captain Name Role Phone Kuldeep Marie MD Primary Care Provider [phone] Immunizations Immunization Administration Dates Next Due Influenza, [...] topic Medical Devices Not on file Insurance [facility] PPO Jessica SLAUGHTER [place] [facility] OUT [facility] PPO Care Teams Shrimping Boat Captain Relationship Specialty Start Date End Date Kuldeep Marie MD [address] [place] [address] [place] [address] PCP - General Internal Medicine 07/19/19 Additional Source Comments The information contained in this document represents components of the legal health record. It is not the complete legal health record.[facility]
== END 2025-02-10 16:22 | disposition home or self-care (01) ==
LOC: HO.US 16:21
PROVIDERS: PCP Internal Medicine; Visit Provider Internal Medicine
DX: Z13.89 Encounter for screening for other disorder (principal)

== ENCOUNTER → 2025-02-10 16:28 | Outpatient (BNV) | payer BC, SELFPAY | PROVIDERS: PCP Internal Medicine; Visit Provider Radiology Diagnostic Radiology | DX: L53.9 Erythematous condition, unspecified (principal) | CPT/HCPCS: 93971 ==

== ENCOUNTER 2025-02-13 16:20 | Outpatient (AMB) | payer BC, SELFPAY ==
[2025-02-13 16:32] VITALS: BP 100/60; PULSE 81; TEMP 36.3; O2SAT 98; BMI 23.7
--- NOTE | 2025-02-13 16:32 | MHC.PC.OV ---
Vital Signs 02/13/25 16:32 Height 5 ft 8 in Weight 156 lb BMI 23.7 BP 100/60 Blood Pressure Location Lt brachial Position Sitting Pulse 81 Pulse Source Pulse Oximeter Temp 97.3 F Temp Source Temporal Artery Scan Pulse Oximetry (%) 98 Oxygen Delivery Method Room Air Intake Visit Reasons: follow up Allergies kiwi Allergy (Severe, Verified 02/13/25 16:34) rash Penicillins (PENICILLINS) Allergy (Intermediate, Verified 02/13/25 16:34) SEVERE RASH Sulfa (Sulfonamide Antibiotics) (SULFA(SULFONAMIDE ANTIBIOTICS)) Allergy (Intermediate, Verified 02/13/25 16:34) RASH Tobacco use date assessed: 02/13/25 Dental Screening Dental Screen Date: 02/13/25 Did you have a dental visit in the last 12 months?: Yes Did you have a dental problem in the last 6 months where you did not have access to dental care?: No Was dental information given to patient?: Patient has dentist HPI HPI Comments History of Present Illness Details The patient is a 55-year-old female presenting for F-U for her most recent visit. The patient was seen last week for right upper arm pain with redness. She underwent upper US which came back negative. The arm soreness initially presented with redness, which has since improved. The patient underwent an ultrasound, which returned negative for any abnormalities, including blood clots. The soreness persists upon touch, but the redness has resolved, and the condition is being monitored without further intervention at this time. The neuropathy is characterized by an electric shock sensation that occurs intermittently. We checked TSH, A1C and vit B12 which all came back negative. The patient has undergone previous evaluations, including an EMG, which returned normal results. The sensation is not constant but can be severe when it occurs. The patient is advised to consult with a neurologist for further assessment and management. Preventative care measures discussed include the administration of a flu vaccine, which the patient has not received in a long time. It was confirmed that the vaccine is safe to take despite the neuropathy. [facility] Medical History EDD (obstructive sleep apnea) Chronic idiopathic constipation Gastroesophageal reflux disease Angiomyolipoma of right kidney Brain lesion Toe pain Mass of uterus Surgical History History of esophagogastroduodenoscopy (EGD) History of colonoscopy History of bunionectomy of right great toe Hx of toe surgery Hx of tubal ligation History of delivery Family History Father Leukemia Arthritis, rheumatoid Mother No problems noted. 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 1. Little interest or pleasure in doing things: not at all 2. Feeling down, depressed, or hopeless: not at all 3. Trouble falling or staying asleep, or sleeping too much: nearly every day 4. Feeling tired or having little energy: nearly every day 5. Poor appetite or overeating: several days 6. Feeling bad about yourself - or that you are a failure or have let yourself or your family down: not at all 7. Trouble concentrating on things, such as reading the newspaper or watching television: several days 8. Moving or speaking so slowly that other people could have noticed. Or the opposite - being so fidgety or restless that you have been moving around a lot more than usual: not at all 9. Thoughts that you would be better off or of hurting yourself in some way: not at all Total score: 8 Source: Developed by Drs. Emerson Garcia, Mojgan Cruz, Florentino Hall and colleagues, with an educational steph from [employer]. Thrive Questionnaire Date Thrive assessed: 02/09/25 I am a: Patient What is your living situation today?: I have a steady place to live Within the past 12 months, did the food you bought not last and you didn't have the money to get more?: Never true Within the past 12 months, did you worry whether your food would run out before you got money to buy more?: Never true Do you have trouble paying for medicines?: No Do you have trouble getting transportation to medical appointments?: No Do you have trouble paying your heating and electricity bill?: No Do you have trouble taking care of your child, family member or friend?: No Do you have trouble with day-to-day activities such as bathing, preparing meals, shopping, managing finances, etc.?: No Are you currently unemployed and looking for a job?: No Are you interested in more education?: No Please select the resources that you would like help with: None Currently or been in a relationship where the following occur: No concerns reported THRIVE Score: 0 AUDIT C Alcohol Use Questionnaire (AUDIT-C) 1. How often do you have a drink containing alcohol?: Never 3. How often do you have six or more drinks on one occasion?: Never Total Score: 0 ERIC-7 AMB Questionnaire ERIC-7 Date ERIC - 7 assessed: 08/17/24 Feeling nervous, anxious, or on edge: 1 = Several days Not being able to stop or control worryin = Not at all Worrying too much about different things: 1 = Several days Trouble relaxin = Not at all Being so restless that it is hard to sit still: 0 = Not at all Becoming easily annoyed or irritable: 0 = Not at all Feeling afraid as if something awful might happen: 0 = Not at all Total ERIC-7 score (0-4 normal; 5-9 mild; 10-14 moderate; 15-21 severe): 2 Source: Developed by Drs. Emerson Garcia, Mojgan Cruz, Florentino Hall and colleagues, with an educational steph from [employer]. Review of Systems Const Details: Not done. Physical exam (Primary Care) Vital Signs: Last Vital Signs Temp 97.3 F 02/13/25 16:32 Pulse 81 02/13/25 16:32 BP 100/60 02/13/25 16:32 Pulse Ox 98 02/13/25 16:32 Oxygen Delivery Method Room Air 02/13/25 16:32 BMI result Body Mass Index 23.7 Tobacco/Smoking Status: Tobacco use Status Tobacco use date assessed 02/13/25 02/13/25 16:35 Patient Tobacco Use Status Never used Tobacco 02/13/25 16:35 Tobacco use type 02/09/25 17:04 e-Cigarette/Vaping Use Never Used 02/13/25 16:35 PHQ-9: PHQ-9 Score PHQ-9: Total score 8 02/13/25 16:35 Thrive Assessment: Date of Thrive Assessment Date Thrive assessed 02/09/25 02/13/25 16:35 Currently or been in a relationship where the following occur: No concerns reported Const Other: Pertinent findings are in BOLD GENERAL APPEARANCE NAD, activity normal for age, well developed/ well nourished, no cyanosis, pallor, or diaphoresis. EYES lids/conjunctiva normal. EARS/NOSE/THROAT Mucous membranes moist, nares normal, lips/teeth normal uvula midline without oral pharyngeal erythema, exudate or swelling TMs normal bilaterally. No lymphangitis/lymphedema. HEAD/NECK normocephalic atraumatic, no facial trauma, neck is supple. RESPIRATORY respiratory effort normal, speaks in full sentences, no tripod position, no accessory muscle use. Lungs clear to auscultation without rhonchi, wheezes, rales CARDIAC Regular rate and rhythm, no edema. ABDOMINAL Soft, ND/NT. No evidence of fluid wave. No pulsatile masses on exam, rebound tenderness, Mcfarland sign or pain over Mcburney's point. MUSCLES/EXTREMITIES No abnormal range of motion, no swelling. Right upper extremity redness resolved. SKIN Warm, pink and dry. No rashes, dermatoses, petechiae or lesions. NEUROLOGICAL Speech is clear and appropriate. Normal level of consciousness. Gait and coordination are normal. 5/5 strength in all extremities. PSYCH Normal mood and affect. Judgement/competence is appropriate Coding Level of Care Code Est Pt Level 3 (59895) Diagnoses Erythema of upper extremity L53.9 Time Spent (min) 20 Assessment & Plan Assessment & Plan (1) Erythema of upper extremity: Code(s): L53.9 - Erythematous condition, unspecified Category: Medical Plan: - Monitor the condition as the redness has resolved and ultrasound was negative for blood clots. Plan The patient was informed that the arm soreness with prior redness has improved and the ultrasound was negative for blood clots. It was advised to monitor the condition as no further intervention is needed at this time. The neuropathy characterized by an electric shock sensation was discussed, and the patient was advised to consult with a neurologist for further evaluation. The safety and recommendation of the flu vaccination were confirmed, and the patient was encouraged to receive it despite the neuropathy.
--- OUTSIDE RECORDS SUMMARY | 2025-02-13 18:32 | XMS_ITS | Patient Health Record ---
Author Organization [facility] Address [address] [facility] [place] [address] Care Team Providers Care Resistor Inspector Name Role Phone Kuldeep Marie MD Primary Care Provider Stewart Li Unavailable [phone] Allergies Allergen (clinical drug ingredient) Drug/Non Drug [...] primary osteoarthritis of the ankle and/or foot (278335264) Primary osteoarthrit is, left ankle and foot (M19.072) Active confirmed Problem Localized, primary osteoarthritis of the ankle and/or foot (316997256) Primary osteoarthrit is, right ankle and foot (M19.071) Active confirmed Plan Of Treatment No Information Insurance Providers Payer Name Payer Address Payer Phone Subscriber Number Group Number Insured Name Patient Relationship to Insured Coverage Start Date [facility]age End Date [facility] [address] [place] [address] [phone] [id number] PrashantEliz songi Self - patient is the insured Medical (General) History Medical History History ICD Code Arthritis Back,Hip,and Knee pain Headaches Migraines Poor circulation Chicken pox Surgical History Surgery Date(Month/Year) section 97,98,99,01 Plantar Faciiotomy 20 yrs ago leg vein stripping/scierotherapy hemorrhoidectomy 04/2014
--- OUTSIDE RECORDS SUMMARY | 2025-02-13 18:32 | XMS_ITS | Clinical Summary ---
Author Organization [facility] Address [address] [place] [address] Phone Care Team Providers Care Surveyor Name Role Phone Kuldeep Marie MD Primary Care Provider [phone] Allergies Active Allergy Reactions Criticality Noted Date [...] 022 Influenza Vaccine (#1) 2025 07/14/2019 Insurance [facility] Care Teams Surveyor Relationship Specialty Start Date End Date Kuldeep Marie MD [address] [place], [place] PCP - General Internal Medicine 12/13/20
--- OUTSIDE RECORDS SUMMARY | 2025-02-13 18:32 | XMS_ITS | Clinical Summary ---
Author Organization [facility] Address [address] [place] [address] Phone Care Team Providers Care Milking System Installer Name Role Phone Kuldeep Marie MD Primary Care Provider [phone] Immunizations Immunization Administration Dates Next Due Influenza, [...] topic Medical Devices Not on file Insurance [facility] PPO Jessica SLAUGHTER [place] [facility] PPO Care Teams Milking System Installer Relationship Specialty Start Date End Date Kuldeep Marie MD [address] [place] [address] [place] [address] PCP - General Internal Medicine 07/19/19 Additional Source Comments The information contained in this document represents components of the legal health record. It is not the complete legal health record.[facility]
== END 2025-02-13 16:54 | disposition home or self-care (01) ==
LOC: HO.HMCH 16:21
PROVIDERS: PCP Internal Medicine; Visit Provider Internal Medicine
DX: L53.9 Erythematous condition, unspecified (principal)

== ENCOUNTER 2025-03-23 11:57 | Outpatient (AMB) | payer BC, SELFPAY ==
--- NOTE | 2025-03-23 12:01 | MHC.OFFVIS ---
Vital Signs 03/23/25 12:05 Height 5 ft 8 in Weight 138 lb BMI 21.0 BP 112/60 Blood Pressure Location Rt brachial Position Sitting Respiration 16 Pulse 84 Pulse Source Pulse Oximeter Pulse Oximetry (%) 95 Oxygen Delivery Method Room Air Intake Visit Reasons: Re-Establish Care - Neuropathy Systems Integration Engineer Required: No Accompanied by: Spouse Allergies kiwi Allergy (Severe, Verified 03/23/25 12:06) rash Penicillins (PENICILLINS) Allergy (Intermediate, Verified 03/23/25 12:06) SEVERE RASH Sulfa (Sulfonamide Antibiotics) (SULFA(SULFONAMIDE ANTIBIOTICS)) Allergy (Intermediate, Verified 03/23/25 12:06) RASH HPI Comments Details: Gina is a 55-year-old female patient with a past medical history of venous insufficiency, memory impairment, depression, vitamin-D deficiency, trialed seizures, and migraine previously followed by Dr. Szymanski for pain and paresthesias to her feet/distal lower extremities thought to be caused by a small fiber neuropathy with positive skin biopsy. Her ongoing symptoms include vibration sensation to the top of her feet and some numbness and tingling sensations in the feet and ankles. She also has had some cramping and achiness of the lower extremities from time to time but most recently, her primary concern has been severe shooting pains to the outer aspect of the right ankle. This has been going on for a year or more. She is here today to reestablish care with me at [facility]. In the interim, she has not had any major changes to her symptoms and still continuously has daily shock-like pain to the outer aspect of her right ankle. This can last up to 30 seconds in all though brief, can be extremely severe. This can happen several times throughout the day and has not brought on by certain position of her leg, ambulation, or other obvious positional triggers. She recently just splint and had a meniscal tear surgery repair and during the workup was found to have a right-sided Carmona's cyst. She also notes that the duloxetine dosed at 30 mg 3 times daily has seemingly made no change to her baseline neuropathy symptoms or to the shooting pain to the right lower extremity. Prior workup has included: 11/16/2024-EMG right lower extremity: Normal study. No evidence of large fiber neuropathy, tarsal tunnel syndrome, myopathy, plexopathy, or radiculopathy. 05/22/2024 MRI lumbar spine: Degenerative changes of the lumbar spine mildly progressed since the prior examination. Foraminal narrowing remains most pronounced on the left L4 through L5. No new nerve root impingement. 08/13/2023 EMG right upper and lower extremity: Very subtle right distal median neuropathy localized at or distal to the wrist as permanently demyelinating in nature involving just the sensory branches. Compatible with CTS. There was no evidence to indicate the presence of a generalized polyneuropathy or neuropathies involving the peroneal, tibial, superficial peroneal, sural, sciatic, femoral, median, ulnar, radial, or axillary nerves., lumbosacral plexopathy, branch plexopathy, or lumbosacral radiculopathy involving roots from L2 through S1 or involvement of motor neurons at those levels or a cervical radiculopathy involving roots from C5 through T1 or involvement of motor neuron at those levels or a myopathy. 06/01/2023 MRI of the brain with and without contrast: Subtle T2 bright focus within the left midbrain tectum adjacent to aqueduct of Sylvius not significantly changed since prior imaging. Otherwise, no significant findings. Skin biopsy performed by her prior neurologist in the past was considered positive for likelihood of small fiber neuropathy Prior medication trials: Amitriptyline-ineffective Gabapentin-ineffective -Ala 300 mg twice daily-ineffective -duloxetine-currently taking with minimal to no benefit there was a 30 mg 3 times daily. [facility] Medical History (Updated 03/23/25 @ 13:06 by Tami Woody CNP) Neuropathy EDD (obstructive sleep apnea) Chronic idiopathic constipation Gastroesophageal reflux disease Angiomyolipoma of right kidney Brain lesion Toe pain Mass of uterus Surgical History History of esophagogastroduodenoscopy (EGD) History of colonoscopy History of bunionectomy of right great toe Hx of toe surgery Hx of tubal ligation History of delivery Family History Father Leukemia Arthritis, rheumatoid Mother No problems noted. 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 Cognitive needs: No Hearing needs: No Vision needs: No Review of Systems Const All systems reviewed & are unremarkable except as noted in HPI and below Physical Exam Vital Signs: Last Vital Signs Pulse 84 03/23/25 12:05 Resp 16 03/23/25 12:05 BP 112/60 03/23/25 12:05 Pulse Ox 95 03/23/25 12:05 Oxygen Delivery Method Room Air 03/23/25 12:05 BMI result Body Mass Index 21.0 Const General: cooperative, healthy appearing, comfortable and no acute distress Nutritional Appearance: well nourished Orientation/consciousness: patient oriented x3 Limitations: no limitations HEENT Head: Yes normal to inspection and Yes normocephalic Eyes General: appearance normal, both eyes and all related structures Visual Zhang: normal visual zhang by confrontation Alignment and Position: alignment normal Periorbital: periorbital findings normal Eyelids: Yes eyelids normal Conjunctivae: conjunctivae normal Sclerae: sclerae normal Direct Ophthalmoscopy: normal light reflex, no papilledema and fundi normal bilaterally Neck Neck: Yes normal visual inspection and Yes full ROM General: Yes no CVA tenderness Back/Spine/Pelvis Back: no CVA tenderness Cervical Spine: normal cervical lordosis Thoracic/Lumbar Spine: thoracic and lumbar spine normal to inspection Neuro General: patient oriented x3, tone normal and deep tendon reflexes 2+ bilaterally Cranial nerves: Yes CN's II-XII intact bilaterally and Yes Facial sensation intact/muscles of mastication intact Cognition (Neuro): normal cognition Gait exam (Neuro): Normal gait present Motor exam (neuro): 5/5 motor strength present throughout and no tremor noted Sensory Exam: sensory level loss detected (Diminished vibratory sensation to the right great toe) Romberg Test: Negative Pupils: Normal pupillary reactivity/response: bilateral Psych Appearance: grossly normal Mental Status: mental status grossly normal Speech and movement: Normal speech and movement present and Clear speech present Affect: normal affect Attitude: cooperative Thought process: Normal thought process present Thought content: Normal thought content present Insight: Good insight present (Psych) Judgement: Good judgement present (Psych) Assessment & Plan Assessment & Plan (1) Neuropathy: Code(s): G62.9 - Polyneuropathy, unspecified Category: Medical (2) Right ankle pain: Code(s): M25.571 - Pain in right ankle and joints of right foot Category: Medical (3) Bakers cyst: Code(s): M71.20 - Synovial cyst of popliteal space [Carmona], unspecified knee Category: Medical Plan Gina is a 55-year-old female patient with a past medical history of venous insufficiency, memory impairment, depression, vitamin-D deficiency, trialed seizures, and migraine who was following up for small fiber neuropathy as well as some shock-like pain symptoms that has been going on for about a year now with an unknown cause as her workup has been extensive and unrevealing. Interestingly however, she recently had a right meniscal tear and during workup, it was discovered that she does have a Carmona's cyst to the posterior aspect of her right knee. He might be possible that this cyst structure is causing intermittent nerve impingement and causing her intermittent right ankle pain symptoms. She follows up with [facility] in a couple of weeks and we will plan to discuss this possibility with her physician there. In the meantime, the duloxetine is not benefitting her and I will have her decrease the dose slowly/taper off of it. -follow up with [facility] -taper down/off of duloxetine as tolerated -follow up in 2 months or sooner if needed Coding Level of Care Code Est Pt Level 4 (49833) Diagnoses Neuropathy G62.9 Right ankle pain M25.571 Bakers cyst M71.20
[2025-03-23 12:05] VITALS: BP 112/60; PULSE 84; RESP 16; O2SAT 95; BMI 21.0
--- OUTSIDE RECORDS SUMMARY | 2025-03-23 15:10 | XMS_ITS | Clinical Summary ---
Author Organization [facility] Address [address] [place] [address] Phone Care Team Providers Care Interior Designer Name Role Phone Kuldeep Marie MD Primary Care Provider [phone] Allergies Active Allergy Reactions Criticality Noted Date [...] 022 Influenza Vaccine (#1) 2025 07/14/2019 Insurance [facility] Care Teams Interior Designer Relationship Specialty Start Date End Date Kuldeep Marie MD [address] [place], [place] PCP - General Internal Medicine 12/13/20
--- OUTSIDE RECORDS SUMMARY | 2025-03-23 15:10 | XMS_ITS | Patient Health Record ---
Author Organization [facility] Address [address] [facility] [place] [address] Care Team Providers Care Special Forces Specialist Name Role Phone Kuldeep Marie MD Primary Care Provider Stewart Li Unavailable [phone] Allergies Allergen (clinical drug ingredient) Drug/Non Drug [...] primary osteoarthritis of the ankle and/or foot ([id number]) Primary osteoarthrit is, left ankle and foot (M19.072) Active confirmed Problem Localized, primary osteoarthritis of the ankle and/or foot (994808471) Primary osteoarthrit is, right ankle and foot (M19.071) Active confirmed Plan Of Treatment No Information Insurance Providers Payer Name Payer Address Payer Phone Subscriber Number Group Number Insured Name Patient Relationship to Insured Coverage Start Date [facility]age End Date [facility] [address] [place] [address] [phone] [id number] Prashantnohemi Gina Self - patient is the insured Medical (General) History Medical History History ICD Code Arthritis Back,Hip,and Knee pain Headaches Migraines Poor circulation Chicken pox Surgical History Surgery Date(Month/Year) section 97,98,99,01 Plantar Faciiotomy 20 yrs ago leg vein stripping/scierotherapy hemorrhoidectomy 04/2014
--- OUTSIDE RECORDS SUMMARY | 2025-03-23 15:10 | XMS_ITS | Clinical Summary ---
Author Organization [facility] Address [address] [place] [phone] Phone Care Team Providers Care Manager Business Intelligence Name Role Phone Kuldeep Marie MD Primary Care Provider [phone] Immunizations Immunization Administration Dates Next Due Influenza, [...] (#1) 2024 07/14/2019 COVID-19 VACCINE (1 - 2024-2 6 season) 2025 Adult Td,Tdap Booster 05/18/2030 05/18/2020 , 12/03/2016 RSV VACCINE (1 - 1-dose 75+ series) 01/17/2047 ZOSTER VACCINES Completed 10/11/2022, 05/30/2022 HEPATITIS A VACCINES Aged Out No long er eligible based on patient's age to complete this topic HIB VACCINES Aged Out No longer eligi ble based on patient's age to complete this topic IPV VACCINES Aged Out No longer eligi ble based on patient's age to complete this topic MENINGOCOCCAL VACCINES (ACWY) Aged Out No longer eligible based on patient's age to complete this topic MENINGOCOCCAL VACCINES (B) Aged Out N o longer eligible based on patient's age to complete this topic Medical Devices Not on file Insurance [facility] PPO BLUE CROSS OUT OF STATE PPO BLUE CROSS OUT OF STATE PPO [facility]UE CROSS OUT OF STATE PPO [facility] OUT OF [facility] PPO [facility] OUT [facility] PPO [facility] [place] [facility] [place] [facility] [place] [facility] [place] [facility] [place] OUT OF [facility] PPO Care Teams Manager Business Intelligence Relationship Specialty Start Date End Date Kuldeep Marie MD [address] [place] [address] [place] [address] PCP - General Internal Medicine 07/19/19 Additional Source Comments The information contained in this document represents components of the legal health record. It is not the complete legal health record.[facility]
== END 2025-03-23 12:37 | disposition home or self-care (01) ==
LOC: HO.HSM 11:58
PROVIDERS: PCP Internal Medicine; Visit Provider Nurse Practitioner
DX: G62.9 Polyneuropathy, unspecified (principal); M25.571 Pain in right ankle and joints of right foot; M71.20 Synovial cyst of popliteal space [Baker], unspecified knee
CPT/HCPCS: 99214